=== PATIENT | male | born 1950 | race Caucasian/White ===

== ENCOUNTER 2018-01-21 12:05 | Inpatient (IN) ==
--- NOTE | 2018-01-21 12:22 | ED ---
HPI General Chief Complaint: Chest Pain Stated Complaint: Medical Time Seen by Provider: 01/21/18 12:11 Source: patient and EMS Mode of arrival: EMS Limitations: no limitations History of Present Illness HPI narrative: 67-year-old male patient visiting from [place], has history of hypertension, high cholesterol, CAD with stents, presents to the ER today because of epigastric and substernal chest discomfort which she rates currently at a 5 out of 10, have improved after given nitroglycerin by EMS. He denies any shortness of breath, nausea, or any other symptoms. He does not know of any exacerbating alleviating factors. Complete Quality Measures for STEMI Alert Patients Related Data Home Medications Medication Instructions Recorded Confirmed amlodipine 10 mg PO DAILY 01/21/18 01/21/18 aspirin [Aspir-81] 81 mg PO DAILY 01/21/18 01/21/18 metoprolol tartrate 50 mg PO BID 01/21/18 01/21/18 simvastatin 10 mg PO QPM 01/21/18 01/21/18 Allergies Allergy/AdvReac Type Severity Reaction Status Date / Time No Known Allergies Allergy Verified 01/21/18 12:15 Review of Systems Except as stated in HPI: all other systems reviewed are negative PMFSH History History Provided By: Patient Medical History Medical History AV (arteriovenous fistula) (Acute) Diabetes (Acute) Hyperlipidemia (Acute) Hypertension (Acute) Surgical History Surgical History History of appendectomy (Acute) History of nephrectomy (Acute) Hx of cholecystectomy (Acute) Social History Social History Substance History: No History of Abuse Second Hand Smoke Exposure: No Smoking Status: Never smoker How Often Do You Have a Drink Containing Alcohol: Never Recent Travel in [facility] within the Last 8 Weeks: Yes Recent Out of Country Travel within the Last 8 Weeks: No Exam Narrative Exam Narrative: GENERAL: Well-developed middle-age male patient currently in mild distress. Awake and oriented 3. SKIN: Focused skin assessment warm/dry. HEAD: Atraumatic. Normocephalic. EYES: Pupils equal and round. No scleral icterus. No injection or drainage. ENT: No nasal bleeding or discharge. Mucous membranes pink and moist. NECK: Trachea midline. No JVD. CARDIOVASCULAR: Regular rate and rhythm. No murmur appreciated. RESPIRATORY: No accessory muscle use. Clear to auscultation. Breath sounds equal bilaterally. GASTROINTESTINAL: Abdomen soft, mild epigastric tenderness without guarding or rebound, nondistended. Hepatic and splenic margins not palpable. MUSCULOSKELETAL: No obvious deformities. No clubbing. No cyanosis. No edema. NEUROLOGICAL: Awake and alert. No obvious cranial nerve deficits. Motor grossly within normal limits. Normal speech. PSYCHIATRIC: Appropriate mood and affect; insight and judgment normal. Course Hospital Course: EKG did not show any signs of acute ST elevations. He does have T-wave inversion in V6. No acute ST depressions as far as I can tell, no previous records to compare with. Lab work shows elevated BUN and creatinine, it is unclear where the patient's baseline is. His troponin is mildly elevated at 0.5. At this point, patient is put on heparin protocol my plan would be to admit the patient for further evaluation and treatment for possible [place]. CT of the abdomen and pelvis did not show any signs of acute intra-abdominal process other can be done only without contrast because of elevated creatinine. Case was discussed with Dr. King for admission. Initial Documented Vital Signs Temperature 98 F 01/21/18 12:06 Pulse Rate 59 L 01/21/18 12:06 Respiratory Rate 16 01/21/18 12:06 Blood Pressure 147/67 H 01/21/18 12:06 Pulse Oximetry 100 01/21/18 12:06 Last Documented Vital Signs Temperature 97.8 F 01/21/18 13:14 Pulse Rate 68 01/21/18 13:14 Respiratory Rate 17 01/21/18 13:14 Blood Pressure 139/64 01/21/18 13:14 Pulse Oximetry 99 01/21/18 13:14 Medical Decision Making Differential Diagnosis Differential Diagnosis: ACS versus gastritis versus pancreatitis versus gastroenteritis Lab Data Result diagrams: 01/21/18 12:20 01/21/18 12:20 Lab Results 01/21/18 01/21/18 01/21/18 Range/Units 12:20 12:20 12:20 WBC 10.7 (4.0-11.0) th/mm3 RBC 4.05 L (4.50-5.90) mil/mm3 Hgb 10.2 L (13.0-17.0) gm/dL Hct 32.0 L (39.0-51.0) % MCV 78.9 L (80.0-100.0) fL MCH 25.3 L (27.0-34.0) pg MCHC 32.0 (32.0-36.0) % RDW 16.3 (11.6-17.2) % Plt Count 372 (150-450) th/mm3 MPV 8.3 (7.0-11.0) fL Neut % (Auto) 69.7 (16.0-70.0) % Lymph % (Auto) 19.4 (9.0-44.0) % [place] % (Auto) 6.3 (0.0-8.0) % Eos % (Auto) 3.6 (0.0-4.0) % Baso % (Auto) 1.0 (0.0-2.0) % Neut # (Auto) 7.4 (1.8-7.7) th/mm3 Lymph # (Auto) 2.1 (1.0-4.8) th/mm3 [place] # (Auto) 0.7 (0.0-0.9) th/mm3 Eos # (Auto) 0.4 (0.0-0.4) th/mm3 Baso # (Auto) 0.1 (0.0-0.2) th/mm3 WBC Differential . Differential Comment Auto diff final PT 11.2 (9.8-11.6) sec INR 1.1 Ratio APTT 25.4 (24.3-30.1) sec Sodium 139 (136-145) meq/L Potassium 4.4 (3.5-5.1) meq/L Chloride 111 H (98-107) meq/L Carbon Dioxide 21.7 (21.0-32.0) meq/L Anion Gap 6 (5-15) meq/L BUN 30 H (7-18) mg/dL Creatinine 2.87 H (0.60-1.30) mg/dL Estimated GFR 22 L (>89) mL/min Random Glucose 146 H (74-106) mg/dL Calcium 8.1 L (8.5-10.1) mg/dL Total Bilirubin 0.8 (0.2-1.0) mg/dL AST 24 (15-37) U/L ALT 47 (12-78) U/L Alkaline Phosphatase 102 (45-117) U/L Troponin I 0.32 H (0.02-0.05) ng/mL Total Protein 7.4 (6.4-8.2) g/dL Albumin 3.4 (3.4-5.0) g/dL Lipase 408 H (73-393) U/L Imaging Data Radiologist's impression: Chest X-Ray 01/21/18 12:19 CONCLUSION: Cardiomegaly with no acute cardiopulmonary disease. Abdomen/Pelvis CT 01/21/18 13:32 CONCLUSION: 1. Study is breathing motion degraded. 2. Tiny bilateral pleural effusions. 3. Cardiomegaly. 4. No acute abnormality to explain the patient's pain. 5. Nonobstructing right renal calculi. Discharge Plan Discharge Disposition Patient Disposition: 30 Still Patient Discharge Condition Condition: Stable Discharge Details Anticipated Discharge Date: 01/21/18 Diagnosis: Non-ST elevation (NSTEMI) myocardial infarction Physicians Team ED Provider: Devang Trejo Primary Care Provider: UNKNOWN, Rxs /Orders / Referrals /Forms Prescriptions: No Action simvastatin 10 mg Tablet 10 mg PO QPM RF: 0 aspirin [Aspir-81] 81 mg Tablet,Delayed Release (Dr/Ec) 81 mg PO DAILY RF: 0 amlodipine 10 mg Tablet 10 mg PO DAILY RF: 0 metoprolol tartrate 50 mg Tablet 50 mg PO BID RF: 0 Discharge Instructions Patient Printed Instructions: Chest Pain (ED) Discharge Interventions Interventions: Vital Signs Last Done: 01/21/18 13:14 Status ED Status: With Doctor
--- NOTE | 2018-01-21 12:44 | XR ---
EXAM DATE: 01/21/2018 12:35 PM EDT AGE/SEX: 67 years / Male INDICATIONS: Midline chest pain. CLINICAL DATA: This is the patient's initial encounter. Patient reports that signs and symptoms have been present for 2 days and indicates a pain score of 5/10. MEDICAL/SURGICAL HISTORY: None. None. COMPARISON: No prior exams available for comparison. FINDINGS: A single AP view of the chest demonstrates the lungs to be symmetrically aerated without evidence of mass, infiltrate or effusion. The heart size is enlarged with no definite pulmonary edema. Osseous s tructures are intact. CONCLUSION: Cardiomegaly with no acute cardiopulmonary disease. Electronically signed by: Srinath Sidhu MD 01/21/2018 12:43 PM EDT
[2018-01-21 12:58] LABS: Baso # (Auto) 0.1 th/mm3 (0.0-0.2); Eos # (Auto) 0.4 th/mm3 (0.0-0.4); Eos % (Auto) 3.6 % (0.0-4.0); Hemoglobin 10.2 gm/dL (13.0-17.0); Lymph # (Auto) 2.1 th/mm3 (1.0-4.8); Lymph % (Auto) 19.4 % (9.0-44.0); Mean Corpuscular Hemoglobin 25.3 pg (27.0-34.0); Mean Corpuscular Volume 78.9 fL (80.0-100.0); Mean Platelet Volume 8.3 fL (7.0-11.0); Mono # (Auto) 0.7 th/mm3 (0.0-0.9); Mono % (Auto) 6.3 % (0.0-8.0); Neut # (Auto) 7.4 th/mm3 (1.8-7.7); Neut % (Auto) 69.7 % (16.0-70.0); Platelet Count 372 th/mm3 (150-450); Red Blood Count 4.05 mil/mm3 (4.50-5.90); Red Cell Distribution Width 16.3 % (11.6-17.2); White Blood Count 10.7 th/mm3 (4.0-11.0)
[2018-01-21 13:10] LABS: Activated Partial Thrombo Time 25.4 sec (24.3-30.1); INR 1.1 Ratio; Prothrombin Time 11.2 sec (9.8-11.6)
[2018-01-21 13:23] LABS: Alanine Aminotransferase 47 U/L (12-78); Albumin 3.4 g/dL (3.4-5.0); Anion Gap 6 meq/L (5-15); Aspartate Aminotransferase 24 U/L (15-37); Blood Urea Nitrogen 30 mg/dL (7-18); Calcium 8.1 mg/dL (8.5-10.1); Carbon Dioxide 21.7 meq/L (21.0-32.0); Chloride 111 meq/L (98-107); Glomerular Filtration Rate 22 mL/min (>89); Glucose,Random 146 mg/dL (74-106); Lipase 408 U/L (73-393); Potassium 4.4 meq/L (3.5-5.1); Sodium 139 meq/L (136-145)
[2018-01-21 13:27] LABS: Alkaline Phosphatase 102 U/L (45-117); Total Protein 7.4 g/dL (6.4-8.2); Troponin I 0.32 ng/mL (0.02-0.05)
[2018-01-21] MEDS ORDERED: Heparin Drip 25,000 UNIT/250 ML BAG IV.CONT PRN (13:33)
[2018-01-21] MEDS ORDERED: Heparin 10,000 UNITS/10 ML Vial (for IV use) IV.PUSH STA (13:33)
--- NOTE | 2018-01-21 14:14 | CT ---
EXAM DATE: 01/21/2018 1:49 PM EDT AGE/SEX: 67 years / Male INDICATIONS: Epigastric Abdominal Pain 2 days CLINICAL DATA: This is the patient's initial encounter. Patient reports that signs and symptoms have been present for 2 days and indicates a pain score of 5/10. MEDICAL/SURGICAL HISTORY: Hypertension. Diabetes. Appendectomy. Cholecystectomy. Nephrectomy , right. RADIATION DOSE: 8.15 CTDI (mGy) COMPARISON: No prior exams available for comparison. TECHNIQUE: Multiple contiguous axial images were obtained through the abdomen. Images were obtained using multiple row detector helical technique. Using automated exposure control and adjustment of the mA and/or kV according to patient size, radiation dose was kept as low as reasonably achievable to o btain optimal diagnostic quality images. DICOM format image data is available electronically for rev iew and comparison. FINDINGS: The study is degraded by breathing motion artifact. Lower Lungs: Tiny bilateral pleural effusions. Cardiomegaly with coronary artery atherosclerotic calc ifications.. Liver: The liver has a homogeneous density without space-occupying lesion. There is no dilation of th e biliary tree. The gallbladder is not distended. Spleen: Homogeneous density without enlargement. Pancreas: Unremarkable without mass or calcification. Kidneys: The kidneys are small and lobulated in contour. Right-sided renal calculi are observed with out hydronephrosis. The largest stone measures 9 mm. No stones on the left.. Adrenal Glands: Unremarkable. Aorta: The aorta and proximal iliac vessels are grossly unremarkable without aneurysmal dilation. Bowel/Mesentery: The bowel loops are grossly unremarkable. The cecum and sigmoid colon have a normal configuration. Abdominal Wall: Intact. Retroperitoneum: No evidence of adenopathy in the retrocrural, para-aortic, or deep pelvic regions. Bladder: Contours are smooth. Reproductive Organs: Significant calcifications involving the prostate gland. No enlargement of the gland observed.. Inguinal: The inguinal region is unremarkable without evidence of adenopathy. Bony Structures: Unremarkable. CONCLUSION: 1. Study is breathing motion degraded. 2. Tiny bilateral pleural effusions. 3. Cardiomegaly. 4. No acute abnormality to explain the patient's pain. 5. Nonobstructing right renal calculi. Electronically signed by: Sanjay Alcazar MD 01/21/2018 2:13 PM EDT
[2018-01-21] MEDS ORDERED: Morphine Sulfate Inj 2 MG/ML Vial IV.PUSH PRN (14:17)
[2018-01-21] MEDS ORDERED: Bisacodyl 10 MG Supp RECTAL PRN (14:23)
[2018-01-21] MEDS: Sod Chloride 0.9% Inj 1,000 ML IV.CONT SCH (14:51)
[2018-01-21] MEDS ORDERED: Dextrose 50% in Water 50 ML Vial IV.PUSH PRN (15:30)
[2018-01-21] MEDS ORDERED: Benzonatate 100 MG Capsule PO PRN (15:40)
--- NOTE | 2018-01-21 15:46 | P.HP ---
History of Present Illness Primary Care Physician: UNKNOWN History of Present Illness: This is a 67-year-old male with a history of hypertension, hyperlipidemia, diabetes mellitus and coronary artery disease status post stent 2 years ago. He presents to the emergency department complaining of epigastric pressure discomfort which started 4 days ago. It is an intermittent exertional pain without radiation and not associated with shortness of breath, nausea, palpitations and dizziness. It is relieved with sublingual nitroglycerin but got worse last night prompting ER evaluation. EKG reportedly unremarkable per ER physician (unable to review). Troponin 0.3 and was started on heparin drip. Took aspirin today. Lipase is also slightly elevated at [address] of the abdomen pelvis reveals no acute findings to explain abdominal pain. Patient does report of sensation of food getting stuck in his chest but denies pain after eating. Does not recall having EGD. He also has history of chronic kidney disease stage IV was on dialysis 2 years ago. He is nonoliguric. All other systems reviewed negative Inpatient Certification: I certify that the inpatient services were ordered in accordance with Medicare regulations governing the order. This includes certification that hospital inpatient services are reasonable and necessary and in the case of services not specified as inpatient-only under 42 CFR 419.22(n), that they are appropriately provided as inpatient services in accordance to with the 2-midnight benchmark under 43 CFR 412.3(e) Estimated Total Length of Stay (Days): 2 Plans for Post Hospital Care: Not yet determined PMFSH - History History Provided By: Patient, Family Member - Medical History Medical History: Medical History (Last Reviewed 01/21/18 @ 12:22 by Devang Trejo MD) AV (arteriovenous fistula) Diabetes Hyperlipidemia Hypertension - Surgical History Surgical History: Surgical History (Last Reviewed 01/21/18 @ 12:22 by Devang Trejo MD) History of appendectomy History of nephrectomy Hx of cholecystectomy - Family History Family History: Family History (Last Updated 01/21/18 @ 15:44 by Benjamin King MD) Other Family history non-contributory - Tobacco History Second Hand Smoke Exposure: No Smoking Status: Never smoker - Alcohol History How Often Do You Have a Drink Containing Alcohol: Never - Substance Use History Substance History: No History of Abuse - Travel History Recent Travel in the [place] Within the Last 8 Weeks: No Recent Travel Out of the Country Within the Last 8 Weeks: No - Immunization History Tetanus Immunization: Never Vaccinated Hx Influenza Vaccine This Season: Yes Medications and Allergies Active Medications: Active Medications Amlodipine Besylate (Norvasc) 10 mg PO DAILY [facility] Aspirin (Ecotrin) 325 mg PO DAILY [facility] Bisacodyl (Dulcolax Supp) 10 mg RECTAL DAILY PRN PRN Reason: SEVERE CONSITIPATION Dextrose (D50w Vial) 50 ml IV.PUSH UNSCH PRN PRN Reason: PER HYPOGLYCEMIA PROTOCOL Glucagon (Glucagon Inj) 1 mg OTHER PRN PRN PRN Reason: for Hypoglycemia Protocol Heparin Sodium/Dextrose (Heparin/D5w 25,000 U/250 Ml) 25,000 unit in 250 mls @ 0 mls/hr IV.CONT TITRATE PRN; Protocol PRN Reason: Per Protocol Last Admin: 01/21/18 13:56 Dose: 1,000 units/hr, 10 mls/hr Sodium Chloride (Ns Inj) 1,000 mls @ 80 mls/hr IV.CONT .[id number] [facility] Last Admin: 01/21/18 14:51 Dose: 80 mls/hr Insulin Aspart (Novolog Insulin [place] Sugar Inj) 0 unit SQ ACHS ILYA; Protocol Lactulose (Lactulose Liq) 30 ml PO DAILY PRN PRN Reason: SEVERE CONSITIPATION Metoprolol Tartrate (Lopressor) 50 mg PO BID [facility] Morphine Sulfate (Morphine Inj) 2 mg IV.PUSH Q30M PRN PRN Reason: CHEST PAIN Nitroglycerin (Nitrostat Sl) 0.4 mg SL Q5M PRN PRN Reason: CHEST PAIN Nitroglycerin (Nitro-Bid 2% Oint) 0.5 inch TOPICAL Q8HR [facility] Ondansetron HCl (Zofran Inj) 4 mg IV.PUSH Q6H PRN PRN Reason: NAUSEA OR VOMITING Pantoprazole Sodium (Protonix) 40 mg PO DAILY [facility] Pravastatin Sodium (Pravachol) 20 mg PO DAILY [facility] Senna/Docusate Sodium (Shaina-Colace) 1 tab PO BID [facility] Sennosides (Senokot) 17.2 mg PO Q12H PRN PRN Reason: Moderate Constipation Sodium Chloride (Ns Inj) 2 ml IV.FLUSH BID [facility] Sodium Chloride (Ns Inj) 2 ml IV.FLUSH UNSCH PRN PRN Reason: FLUSH AFTER USING IV ACCESS Allergies Allergy/AdvReac Type Severity Reaction Status Date / Time No Known Allergies Allergy Verified 01/21/18 12:15 Home Medications Medication Instructions Recorded Confirmed Type amlodipine 10 mg PO DAILY 01/21/18 01/21/18 History aspirin [Aspir-81] 81 mg PO DAILY 01/21/18 01/21/18 History metoprolol tartrate 50 mg PO BID 01/21/18 01/21/18 History simvastatin 10 mg PO QPM 01/21/18 01/21/18 History Exam Vital signs: Vital Signs 01/21/18 12:06 01/21/18 12:14 01/21/18 12:19 Temperature 98 F Pulse Rate 59 L 60 61 Respiratory Rate 16 16 Blood Pressure 147/67 H 139/62 Pulse Oximetry 100 100 100 01/21/18 13:14 01/21/18 14:24 01/21/18 14:50 Temperature 97.8 F 97.8 F Pulse Rate 68 64 Respiratory Rate 17 16 Blood Pressure 139/64 130/77 Pulse Oximetry 99 99 Intake & Output 01/20/18 01/21/18 01/21/18 18:59 06:59 18:59 Weight 81.647 kg Other: Weight On Admission 81.647 kg Narrative: GENERAL: Well-developed and well-nourished in mild distress secondary to pain SKIN: Warm and dry. HEAD: Atraumatic. Normocephalic. EYES: Pupils equal and round. No scleral icterus. No injection or drainage. ENT: No nasal bleeding or discharge. Mucous membranes pink and moist. NECK: Trachea midline. No JVD. CARDIOVASCULAR: Regular rate and rhythm. RESPIRATORY: No accessory muscle use. Clear to auscultation. Breath sounds equal bilaterally. GASTROINTESTINAL: Abdomen soft, slightly tender epigastric area, nondistended. MUSCULOSKELETAL: Extremities without clubbing, cyanosis, or edema. No obvious deformities. AV fistula left upper extremity with thrill NEUROLOGICAL: Awake and alert. No obvious cranial nerve deficits. Motor grossly within normal limits. Five out of 5 muscle strength in the arms and legs. Normal speech. PSYCHIATRIC: Appropriate mood and affect; insight and judgment normal. Results - Labs CBC & Chem 7: 01/21/18 12:20 01/21/18 12:20 Labs: Laboratory Results - last 24 hr 01/21/18 01/21/18 01/21/18 12:20 12:20 12:20 WBC 10.7 RBC 4.05 L Hgb 10.2 L Hct 32.0 L MCV 78.9 L MCH 25.3 L MCHC 32.0 RDW 16.3 Plt Count 372 MPV 8.3 Neut % (Auto) 69.7 Lymph % (Auto) 19.4 [place] % (Auto) 6.3 Eos % (Auto) 3.6 Baso % (Auto) 1.0 Neut # (Auto) 7.4 Lymph # (Auto) 2.1 [place] # (Auto) 0.7 Eos # (Auto) 0.4 Baso # (Auto) 0.1 WBC Differential . Differential Comment Auto diff final PT 11.2 INR 1.1 APTT 25.4 Sodium 139 Potassium 4.4 Chloride 111 H Carbon Dioxide 21.7 Anion Gap 6 BUN 30 H Creatinine 2.87 H Estimated GFR 22 L Random Glucose 146 H Calcium 8.1 L Total Bilirubin 0.8 AST 24 ALT 47 Alkaline Phosphatase 102 Troponin I 0.32 H Total Protein 7.4 Albumin 3.4 Lipase 408 H - Imaging Impressions Chest X-Ray 01/21/18 12:19 CONCLUSION: Cardiomegaly with no acute cardiopulmonary disease. Abdomen/Pelvis CT 01/21/18 13:32 CONCLUSION: 1. Study is breathing motion degraded. 2. Tiny bilateral pleural effusions. 3. Cardiomegaly. 4. No acute abnormality to explain the patient's pain. 5. Nonobstructing right renal calculi. Caprini VTE Risk Assessment Caprini VTE Risk Assessment: Moderate/High Risk (score >= 2) Caprini Risk Assessment Model: Point Value = 1 Point Value = 2 Point Value = 3 Point Value = 5 Age 41-60 Minor surgery BMI > 25 kg/m2 Swollen legs Varicose veins or History of unexplained or recurrent spontaneous Oral contraceptives or hormone replacement Sepsis (< 1 month) Serious lung disease, including pneumonia (< 1 month) Abnormal pulmonary function Acute myocardial infarction Congestive heart failure (< 1 month) History of inflammatory bowel disease Medical patient at bed rest Age 61-74 Arthroscopic surgery Major open surgery (> 45 min) Laparoscopic surgery (> 45 min) Malignancy Confined to bed (> 72 hours) Immobilizing plaster cast Central venous access Age >= 75 History of VTE Family history of VTE Factor V Leiden Prothrombin [id number] Lupus anticoagulant Anticardiolipin antibodies Elevated serum homocysteine Heparin-induced thrombocytopenia Other congenital or acquired thrombophilia Stroke (< 1 month) Elective arthroplasty Hip, pelvis, or leg fracture Acute spinal cord injury (< 1 month) Prophylaxis Regimen: Total Risk Factor Score Risk Level Prophylaxis Regimen 0-1 Low Early ambulation 2 Moderate Order ONE of the following: *Sequential Compression Device (SCD) *Heparin 5000 units SQ BID 3-4 Higher Order ONE of the following medications: *Heparin 5000 units SQ TID *Enoxaparin/Lovenox 40 mg SQ daily (WT < 150 kg, CrCl > 30 mL/min) *Enoxaparin/Lovenox 30 mg SQ daily (WT < 150 kg, CrCl > 10-29 mL/min) *Enoxaparin/Lovenox 30 mg SQ BID (WT < 150 kg, CrCl > 30 mL/min) AND/OR *Sequential Compression Device (SCD) 5 or more Highest Order ONE of the following medications: *Heparin 5000 units SQ TID (Preferred with Epidurals) *Enoxaparin/Lovenox 40 mg SQ daily (WT < 150 kg, CrCl > 30 mL/min) *Enoxaparin/Lovenox 30 mg SQ daily (WT < 150 kg, CrCl > 10-29 mL/min) *Enoxaparin/Lovenox 30 mg SQ BID (WT < 150 kg, CrCl > 30 mL/min) AND *Sequential Compression Device (SCD) Assessment and Plan - Plan This is a 67-year-old male who presents with epigastric discomfort, elevated troponin and abnormal EKG. ACS with history of coronary artery disease status post stent. Stat EKG interpreted by me shows sinus rhythm, mild ST elevation V3 to V5 with Q waves. Patient will be kept n.p.o. continue heparin drip and trend cardiac enzymes. Continue aspirin, Lopressor and statin. Start Nitropaste. Dw cardiology. Transfer patient to see IC. Mildly elevated lipase. Denies alcohol use. CT of the abdomen reveals no acute findings to explain abdominal pain. He reports sensation of food getting stuck in his chest. Start PPI and as needed Tums. Will consider consultation with GI after cardiac evaluation. Chronic kidney disease stage IV was on dialysis 2 years ago. He is nonoliguric. Continue gentle IV hydration. Avoid nephrotoxins. Patient aware he might need to be back on dialysis if he undergoes cardiac catheterization. Consultation with nephrology will be placed. Multiple medical conditions of hypertension, hyperlipidemia and diabetes mellitus. Continue outpatient medications as appropriate. Monitor fingersticks with sliding scale coverage. DVT prophylaxis patient on heparin drip Discharge Planning: per cardiology
--- NOTE | 2018-01-21 16:51 | MB ---
cc: John Young MD DATE: 01/21/2018 REASON FOR CONSULTATION: Abnormal troponin level. HISTORY OF PRESENT ILLNESS: The patient is a 67-year-old Bah[place]ian male with a history of hypertension, diabetes, hyperlipidemia, severe chronic renal insufficiency, at one point on dialysis about 2 years ago, coronary artery disease, status post coronary stent procedure and myocardial infarction in [place] in 2015, who presented to the emergency department, mainly with complaints of epigastric pain. Since yesterday evening, he has had waxing and waning epigastric discomfort described as "pressure" associated with shortness of breath and occasional rapid palpitations. He denies nausea, vomiting, diarrhea, melena, or bright red blood per rectum. He also denies chest pain, dizziness, syncope, or near syncope. Rarely, he experiences minimal right-sided pedal edema. PAST MEDICAL HISTORY: 1. Diabetes. 2. Hypertension. 3. Hyperlipidemia. 4. Coronary artery disease, status post myocardial infarction and coronary stenting 2016 in [place]. 5. Severe chronic renal insufficiency. About 2 years ago, he was transiently on hemodialysis and does have a left arm AV fistula. PAST SURGICAL HISTORY: 1. Appendectomy. 2. AV fistula formation, left arm. 3. Cholecystectomy. CARDIAC MEDICATIONS AT HOME: 1. Metoprolol tartrate 50 mg b.i.d. 2. Aspirin 81 mg daily. 3. Amlodipine 10 mg daily. 4. Simvastatin 10 mg at bedtime. ALLERGIES: NO KNOWN DRUG ALLERGIES. FAMILY HISTORY: Noncontributory. SOCIAL HISTORY: The patient denies any history of alcohol or tobacco abuse. REVIEW OF SYSTEMS: As in the history of present illness, otherwise negative or noncontributory. He also denies headache, melena, dyspepsia, or fevers. PHYSICAL EXAMINATION: VITAL SIGNS: Blood pressure 130/77 with a pulse of 64, respirations 16. GENERAL: He is a well-developed, well-nourished [place] male in no acute distress. NECK: Jugular venous pressure is hard to assess. Carotid pulses are 2+ bilaterally and without bruits. CHEST: Reveals unlabored respiratory effort with clear lungs braden. CARDIAC: He has a regular rhythm and rate without S3, S4, or murmur. ABDOMEN: He has a soft abdomen with mild epigastric tenderness, without rebound or guarding. Bowel sounds are present. There is no definite hepatosplenomegaly. EXTREMITIES: Reveals no clubbing, cyanosis or edema. DIAGNOSTIC STUDIES: EKG shows sinus rhythm, anterior infarct age undetermined, probably old, nonspecific ST/T abnormality. Chest x-ray shows no acute disease. LABORATORY DATA: Includes WBC 10.7, hemoglobin 10.2, platelets 36, platelets 372. Potassium 4.4, BUN 30, creatinine 2.87, glucose 146, AST 24, ALT 47. Troponin is 0.32. Lipase 408. IMPRESSION: Overall atypical symptoms for myocardial ischemia or infarction in this 67-year-old [place]ian male with a history of hypertension, diabetes, hyperlipidemia, coronary artery disease, chronic renal insufficiency. EKG shows no definite acute ST segment or T-wave changes. He does have Q-waves in the anterior leads, suggesting old infarct. He clearly has epigastric tenderness on exam, reproducing his discomfort. The troponin level is only slightly abnormal, this in the setting of severe renal insufficiency. The patient also notes a history of left upper chest pain at the time of his myocardial infarction and coronary stenting. He denies any recent similar symptoms. At this point, there is no evidence for congestive heart failure. RECOMMENDATIONS: 1. Await subsequent troponin levels; unless there is a marked increase in the levels, would recommend nuclear stress testing to assess for myocardial ischemia. 2. Agree with heparin drip, aspirin, beta ignacio, and nitrates. 3. Await his 2D echo. MD MANUEL Rendon/RANDALL , 04:31 PM , 04:40 PM JULIUS
[2018-01-21] MEDS: Insulin NovoLOG Aspart Correctional Sugar Inj SQ SCH ×2 (18:02→21:16)
[2018-01-21 18:46] LABS: Bacteria,Urine Many /hpf; Bilirubin,Urine Negative (Negative); Clarity,Urine Cloudy (Clear); Color,Urine Yellow (Yellw/Straw); Glucose,Urine (UA) Negative (Negative); Leukocyte Esterase,Urine Large (Negative); Nitrite,Urine Negative (Negative); Specific Gravity,Urine 1.013 (1.002-1.035)
--- NOTE | 2018-01-21 18:49 | P.CONNP ---
<Natty Infante - Last Filed: 01/21/18 18:17> History of Present Illness Service: Nephrology Consult date: 01/21/18 Reason for Consult: CKD may need [facility] Primary Care Provider: UNKNOWN History of Present Illness: This is a very pleasant 67 y/o male patient who was admitted for epigastric pain/chest pain and placed on a heparin gtt. His creatinine is 2.87, GFR 22. His son is present, able to translate, and reports his GFR was 24-27 two months ago. The patient is from [place], had a medical insurance clerk that he followed regularly with. PMH consists of HTN and DM II, in addition to CAD with stents. He also has had several renal stones over the years. He denies use of NSAIDS, and is not in distress on exam. He is on oxygen, has ascattered rles present, is a full shawn. Of note he has functioning AVF left arm that was placed several months ago. Review of Systems Cardiovascular: Reports chest pain, Reports shortness of breath with activity, Denies chest pain with activity Gastrointestinal: Reports abdominal pain Neurologic: Denies dizziness, Denies tingling/numbness/burning sensations PMFSH - History History Provided By: Patient, Family Member - Medical History Medical History: Medical History (Last Reviewed 01/21/18 @ 12:22 by Devang Trejo MD) AV (arteriovenous fistula) Diabetes Hyperlipidemia Hypertension - Surgical History Surgical History: Surgical History (Last Reviewed 01/21/18 @ 12:22 by Devang Trejo MD) History of appendectomy History of nephrectomy Hx of cholecystectomy - Family History Family History: Family History (Last Updated 01/21/18 @ 15:44 by Benjamin King MD) Other Family history non-contributory - Tobacco History Second Hand Smoke Exposure: No Smoking Status: Never smoker - Alcohol History How Often Do You Have a Drink Containing Alcohol: Never - Substance Use History Substance History: No History of Abuse - Travel History Recent Travel in the [place] Within the Last 8 Weeks: No Recent Travel Out of the Country Within the Last 8 Weeks: No - Immunization History Tetanus Immunization: Never Vaccinated Hx Influenza Vaccine This Season: Yes Medications and Allergies Allergies Allergy/AdvReac Type Severity Reaction Status Date / Time No Known Allergies Allergy Verified 01/21/18 12:15 Home Medications Medication Instructions Recorded Confirmed Type amlodipine 10 mg PO DAILY 01/21/18 01/21/18 History aspirin [Aspir-81] 81 mg PO DAILY 01/21/18 01/21/18 History metoprolol tartrate 50 mg PO BID 01/21/18 01/21/18 History simvastatin 10 mg PO QPM 01/21/18 01/21/18 History Active Medications: Active Medications Amlodipine Besylate (Norvasc) 10 mg PO DAILY [facility] Aspirin (Ecotrin) 325 mg PO DAILY [facility] Benzonatate (Tessalon Perles) 200 mg PO Q8H PRN PRN Reason: COUGH Bisacodyl (Dulcolax Supp) 10 mg RECTAL DAILY PRN PRN Reason: SEVERE CONSITIPATION Dextrose (D50w Vial) 50 ml IV.PUSH UNSCH PRN PRN Reason: PER HYPOGLYCEMIA PROTOCOL Glucagon (Glucagon Inj) 1 mg OTHER PRN PRN PRN Reason: for Hypoglycemia Protocol Guaifenesin (Mucinex Er) 600 mg PO BID [facility] Heparin Sodium/Dextrose (Heparin/D5w 25,000 U/250 Ml) 25,000 unit in 250 mls @ 0 mls/hr IV.CONT TITRATE PRN; Protocol PRN Reason: Per Protocol Last Admin: 01/21/18 13:56 Dose: 1,000 units/hr, 10 mls/hr Sodium Chloride (Ns Inj) 1,000 mls @ 80 mls/hr IV.CONT .[id number] [facility] Last Admin: 01/21/18 14:51 Dose: 80 mls/hr Insulin Aspart (Novolog Insulin Correctional Sugar Inj) 0 unit SQ ACHS [facility]; Protocol Last Admin: 01/21/18 18:02 Dose: Not Given Lactulose (Lactulose Liq) 30 ml PO DAILY PRN PRN Reason: SEVERE CONSITIPATION Metoprolol Tartrate (Lopressor) 50 mg PO BID [facility] Morphine Sulfate (Morphine Inj) 2 mg IV.PUSH Q30M PRN PRN Reason: CHEST PAIN Nitroglycerin (Nitrostat Sl) 0.4 mg SL Q5M PRN PRN Reason: CHEST PAIN Nitroglycerin (Nitro-Bid 2% Oint) 0.5 inch TOPICAL Q8HR [facility] Ondansetron HCl (Zofran Inj) 4 mg IV.PUSH Q6H PRN PRN Reason: NAUSEA OR VOMITING Pantoprazole Sodium (Protonix) 40 mg PO DAILY [facility] Pravastatin Sodium (Pravachol) 20 mg PO DAILY [facility] Senna/Docusate Sodium (Shaina-Colace) 1 tab PO BID [facility] Sennosides (Senokot) 17.2 mg PO Q12H PRN PRN Reason: Moderate Constipation Sodium Chloride (Ns Inj) 2 ml IV.FLUSH BID ILYA Sodium Chloride (Ns Inj) 2 ml IV.FLUSH UNSCH PRN PRN Reason: FLUSH AFTER USING IV ACCESS Exam Vital signs: Vital Signs 01/21/18 12:06 01/21/18 12:14 01/21/18 12:19 Temperature 98 F Pulse Rate 59 L 60 61 Respiratory Rate 16 16 Blood Pressure 147/67 H 139/62 Pulse Oximetry 100 100 100 01/21/18 13:14 01/21/18 14:24 01/21/18 14:50 Temperature 97.8 F 97.8 F Pulse Rate 68 64 Respiratory Rate 17 16 Blood Pressure 139/64 130/77 Pulse Oximetry 99 99 01/21/18 16:00 01/21/18 18:00 Temperature 97.6 F Pulse Rate 62 62 Respiratory Rate 20 Blood Pressure 141/73 H Pulse Oximetry 100 Intake & Output 01/20/18 01/21/18 01/21/18 18:59 06:59 18:59 Weight 81.647 kg Other: Date of Last Bowel Movement 01/20/18 Weight On Admission 81.647 kg - Constitutional no acute distress, average body habitus - Routine HEENT Exam Head: Present: normocephalic - Routine Neck Exam Present: supple, full ROM - Routine Respiratory Exam Present: rales. Absent: accessory muscle use - Routine Cardiovascular Exam Present: RRR, S1, S2 - Routine Abdominal Exam Present: soft, normoactive bowel sounds - Routine Extremities Exam Present: full ROM, normal capillary refill, AV fistula. Absent: edema - Routine Skin Exam Present: intact, dry, warm - Routine Neurological Exam Present: alert, oriented X3, CN II-XII intact Results - Lab Results 01/21/18 12:20 01/21/18 12:20 Most recent lab results Calcium 8.1 mg/dL (8.5-10.1) L 01/21/18 12:20 - Image Kidney/bladder ultrasound: other (CT reviewed) Assessment and Plan - Assessment (1) CKD (chronic kidney disease), stage IV Code(s): N18.4 - Chronic kidney disease, stage 4 (severe) Status: Acute Plan: His son reports a baseline CKD 4, GFR of 24-27 UA pending to look for proteinuria. Imaging shows non obstructing renal stones. He has a hx of the same. His renal function is at baseline. Dialysis is not required at this time. Reduce IVF to 30 cc/hr. PO fluids encouraged. Repeat labs Obtain UA Avoid nephrotoxins If discharged we will follow in CKD clinic. (2) Non-ST elevation (NSTEMI) myocardial infarction Code(s): I21.4 - Non-ST elevation (NSTEMI) myocardial infarction Status: Acute Plan: Cardiology has evaluated. Echo pending. ON heparin, statin, and ASA Serial troponin, may need stress test. - Plan He is cleared for discharge from renal perspective. If no intervention is planned, we will follow in CKD clinic. <Ermias Yanes - Last Filed: 01/23/18 08:28> History of Present Illness Primary Care Provider: UNKNOWN [facility] - Medical History Medical History: Medical History (Last Reviewed 01/21/18 @ 12:22 by Devang Trejo MD) AV (arteriovenous fistula) Diabetes Hyperlipidemia Hypertension - Surgical History Surgical History: Surgical History (Last Reviewed 01/21/18 @ 12:22 by Devang Trejo MD) History of appendectomy History of nephrectomy Hx of cholecystectomy - Family History Family History: Family History (Last Updated 01/21/18 @ 15:44 by Benjamin King MD) Other Family history non-contributory Medications and Allergies Active Medications: Active Medications Amlodipine Besylate (Norvasc) 10 mg PO DAILY [facility] Last Admin: 01/22/18 08:30 Dose: 10 mg Aspirin (Ecotrin) 325 mg PO DAILY [facility] Last Admin: 01/22/18 08:30 Dose: 325 mg Benzonatate (Tessalon Perles) 200 mg PO Q8H PRN PRN Reason: COUGH Bisacodyl (Dulcolax Supp) 10 mg RECTAL DAILY PRN PRN Reason: SEVERE CONSITIPATION Dextrose (D50w Vial) 50 ml IV.PUSH UNSCH PRN PRN Reason: PER HYPOGLYCEMIA PROTOCOL Glucagon (Glucagon Inj) 1 mg OTHER PRN PRN PRN Reason: for Hypoglycemia Protocol Guaifenesin (Mucinex Er) 600 mg PO BID [facility] Last Admin: 01/22/18 21:23 Dose: 600 mg Heparin Sodium (Porcine) (Heparin Inj) 5,000 units IV.PUSH Q6H PRN PRN Reason: FOR aPTT<25 SECONDS Heparin Sodium (Porcine) (Heparin Inj) 2,500 units IV.PUSH Q6H PRN PRN Reason: APTT 25-39 Last Admin: 01/21/18 21:07 Dose: 2,500 units Sodium Chloride (Ns Inj) 1,000 mls @ 30 mls/hr IV.CONT .Q24H [facility] Last Admin: 01/22/18 15:46 Dose: 30 mls/hr Ceftriaxone Sodium 1,000 mg/ (Sodium Chloride) 100 mls @ 200 mls/hr IV.SIG Q24H [facility] Last Infusion: 01/22/18 18:45 Dose: Infused Insulin Aspart (Novolog Insulin Correctional Sugar Inj) 0 unit SQ ACHS [facility]; Protocol Last Admin: 01/22/18 23:06 Dose: Not Given Isosorbide Mononitrate (Imdur) 60 mg PO DAILY@0700 [facility] Last Admin: 01/23/18 06:32 Dose: 60 mg Lactulose (Lactulose Liq) 30 ml PO DAILY PRN PRN Reason: SEVERE CONSITIPATION Metoprolol Tartrate (Lopressor) 50 mg PO BID [facility] Last Admin: 01/22/18 21:23 Dose: 50 mg Morphine Sulfate (Morphine Inj) 2 mg IV.PUSH Q30M PRN PRN Reason: CHEST PAIN Nitroglycerin (Nitrostat Sl) 0.4 mg SL Q5M PRN PRN Reason: CHEST PAIN Ondansetron HCl (Zofran Inj) 4 mg IV.PUSH Q6H PRN PRN Reason: NAUSEA OR VOMITING Pantoprazole Sodium (Protonix) 40 mg PO DAILY [facility] Last Admin: 01/22/18 08:30 Dose: 40 mg Pravastatin Sodium (Pravachol) 20 mg PO DAILY [facility] Last Admin: 01/22/18 08:30 Dose: 20 mg Senna/Docusate Sodium (Shaina-Colace) 1 tab PO BID [facility] Last Admin: 01/22/18 21:23 Dose: 1 tab Sennosides (Senokot) 17.2 mg PO Q12H PRN PRN Reason: Moderate Constipation Sodium Chloride (Ns Inj) 2 ml IV.FLUSH BID [facility] Last Admin: 01/22/18 23:09 Dose: 2 ml Sodium Chloride (Ns Inj) 2 ml IV.FLUSH UNSCH PRN PRN Reason: FLUSH AFTER USING IV ACCESS Exam Vital signs: Vital Signs 01/22/18 09:00 01/22/18 10:00 01/22/18 11:00 Temperature Pulse Rate 58 L 54 L 56 L Respiratory Rate Blood Pressure Pulse Oximetry 01/22/18 12:00 01/22/18 13:00 01/22/18 14:00 Temperature 98.2 F Pulse Rate 54 L 80 59 L Respiratory Rate 16 Blood Pressure 139/70 Pulse Oximetry 100 01/22/18 15:00 01/22/18 16:00 01/22/18 17:00 Temperature 98.1 F Pulse Rate 59 L 61 59 L Respiratory Rate 16 Blood Pressure 155/75 H Pulse Oximetry 100 01/22/18 17:24 01/22/18 18:00 01/22/18 19:00 Temperature Pulse Rate 61 67 Respiratory Rate Blood Pressure Pulse Oximetry 96 01/22/18 19:01 01/22/18 20:00 01/22/18 21:00 Temperature 97.7 F Pulse Rate 64 64 64 Respiratory Rate 18 Blood Pressure 170/83 H Pulse Oximetry 96 01/22/18 22:00 01/22/18 23:00 01/23/18 00:00 Temperature 98.4 F Pulse Rate 64 60 66 Respiratory Rate 18 Blood Pressure 131/57 L Pulse Oximetry 98 01/23/18 01:00 01/23/18 02:00 01/23/18 03:00 Temperature Pulse Rate 58 L 60 61 Respiratory Rate Blood Pressure Pulse Oximetry 01/23/18 04:00 01/23/18 05:00 01/23/18 06:00 Temperature 98.7 F Pulse Rate 53 L 54 L 56 L Respiratory Rate 16 Blood Pressure 150/82 H Pulse Oximetry 97 Intake & Output 01/22/18 01/23/18 01/23/18 18:59 06:59 18:59 Intake Total 1830 / 1830 Output Total 620 / 620 Balance 1210 / 1210 Weight 88.1 kg Intake: IV 1350 / 1350 Heparin/D5W 25,000 U/250 mL 25, 250 / 250 000 unit In 250 ml @ Per Protocol IV.CONT TITRATE PRN Rx #:[id number] NS Inj 1,000 ML @ 80 mls/hr IV. 1000 / 1000 CONT .[id number] [facility] Rx#:[id number] Rocephin Inj 1,000 MG In NS Inj 100 / 100 100 ML @ 200 mls/hr IV.SIG Q24H [facility] Rx#:[id number] Oral 480 / 480 Output: Urine 620 / 620 Other: Date of Last Bowel Movement 01/20/18 01/22/18 Results - Lab Results 01/23/18 03:35 01/22/18 00:53 Most recent lab results Calcium 8.0 mg/dL (8.5-10.1) L 01/22/18 00:53 Phosphorus 4.5 mg/dL (2.5-4.9) 01/22/18 00:53 Magnesium 2.3 mg/dL (1.5-2.5) 01/22/18 00:53 Assessment and Plan - Assessment (1) CKD (chronic kidney disease), stage IV Code(s): N18.4 - Chronic kidney disease, stage 4 (severe) Status: Acute (2) Non-ST elevation (NSTEMI) myocardial infarction Code(s): I21.4 - Non-ST elevation (NSTEMI) myocardial infarction Status: Acute - Attending Attestation patient was seen and examined. Agree with above assessment and plan. He was seeing a medical insurance clerk in [place]. Has AVF in the left upper extremity. However there is no need for dialysis at this time.
[2018-01-21 19:27] LABS: Activated Partial Thrombo Time 34.7 sec (24.3-30.1); INR 1.1 Ratio; Prothrombin Time 11.1 sec (9.8-11.6)
[2018-01-21 19:39] LABS: Troponin I 0.32 ng/mL (0.02-0.05)
[2018-01-21] MEDS ORDERED: Heparin 10,000 UNITS/10 ML Vial (for IV use) IV.PUSH PRN ×2 (20:30→20:31)
[2018-01-21] MEDS: guaiFENesin 600 MG ER Tablet PO SCH (21:04)
[2018-01-21] MEDS: Senna/Docusate Sodium 8.6/50 MG Tablet PO SCH (21:04)
[2018-01-21] MEDS: Metoprolol Tartrate 50 MG Tablet PO SCH (21:05)
[2018-01-22 01:26] LABS: Alanine Aminotransferase 40 U/L (12-78); Albumin 3.1 g/dL (3.4-5.0); Anion Gap 8 meq/L (5-15); Aspartate Aminotransferase 20 U/L (15-37); Blood Urea Nitrogen 34 mg/dL (7-18); Carbon Dioxide 20.9 meq/L (21.0-32.0); Chloride 112 meq/L (98-107); Glomerular Filtration Rate 22 mL/min (>89); Glucose,Random 81 mg/dL (74-106); Lipase 397 U/L (73-393); Magnesium 2.3 mg/dL (1.5-2.5); Phosphorus 4.5 mg/dL (2.5-4.9); Potassium 4.4 meq/L (3.5-5.1); Sodium 141 meq/L (136-145)
[2018-01-22 01:29] LABS: Alkaline Phosphatase 98 U/L (45-117); Creatine Kinase 116 U/L (39-308); Total Protein 7.2 g/dL (6.4-8.2); Troponin I 0.28 ng/mL (0.02-0.05)
[2018-01-22 05:00] LABS: Baso # (Auto) 0.1 th/mm3 (0.0-0.2); Baso % (Auto) 0.8 % (0.0-2.0); Eos # (Auto) 0.4 th/mm3 (0.0-0.4); Eos % (Auto) 4.1 % (0.0-4.0); Hematocrit 31.4 % (39.0-51.0); Hemoglobin 9.9 gm/dL (13.0-17.0); Lymph # (Auto) 2.5 th/mm3 (1.0-4.8); Lymph % (Auto) 22.6 % (9.0-44.0); Mean Corpuscular HGB Conc 31.7 % (32.0-36.0); Mean Corpuscular Hemoglobin 24.8 pg (27.0-34.0); Mean Corpuscular Volume 78.4 fL (80.0-100.0); Mono # (Auto) 0.7 th/mm3 (0.0-0.9); Mono % (Auto) 6.8 % (0.0-8.0); Neut # (Auto) 7.1 th/mm3 (1.8-7.7); Neut % (Auto) 65.7 % (16.0-70.0); Platelet Count 336 th/mm3 (150-450); Red Cell Distribution Width 16.5 % (11.6-17.2); White Blood Count 10.8 th/mm3 (4.0-11.0)
[2018-01-22] MEDS: Sod Chloride 0.9% Inj 1,000 ML IV.CONT SCH ×2 (07:45→15:46)
[2018-01-22] MEDS: Insulin NovoLOG Aspart Correctional Sugar Inj SQ SCH ×4 (07:55→23:06)
[2018-01-22] MEDS: Senna/Docusate Sodium 8.6/50 MG Tablet PO SCH ×2 (08:30→21:23)
[2018-01-22] MEDS: amLODIPine 10 MG Tablet PO SCH (08:30)
[2018-01-22] MEDS: Metoprolol Tartrate 50 MG Tablet PO SCH ×2 (08:30→21:23)
[2018-01-22] MEDS: guaiFENesin 600 MG ER Tablet PO SCH ×2 (08:30→21:23)
--- NOTE | 2018-01-22 10:01 | P.PNCA ---
Subjective Interval history: Continued, overall mild, epigastric discomfort, worse with swallowing water or medications. No CP, dyspnea, dizziness. Slept well. Physical Exam Vital signs: Vital Signs 01/21/18 12:06 01/21/18 12:14 01/21/18 12:19 Temperature 98 F Pulse Rate 59 L 60 61 Respiratory Rate 16 16 Blood Pressure 147/67 H 139/62 Pulse Oximetry 100 100 100 01/21/18 13:14 01/21/18 14:24 01/21/18 14:50 Temperature 97.8 F 97.8 F Pulse Rate 68 64 Respiratory Rate 17 16 Blood Pressure 139/64 130/77 Pulse Oximetry 99 99 01/21/18 16:00 01/21/18 18:00 01/21/18 19:00 Temperature 97.6 F Pulse Rate 62 62 71 Respiratory Rate 20 Blood Pressure 141/73 H Pulse Oximetry 100 01/21/18 20:00 01/21/18 21:00 01/21/18 22:00 Temperature 97.9 F Pulse Rate 66 66 54 L Respiratory Rate 18 Blood Pressure 162/72 H Pulse Oximetry 93 L 01/21/18 23:00 01/22/18 00:00 01/22/18 01:00 Temperature 97.6 F Pulse Rate 58 L 52 L 58 L Respiratory Rate 20 Blood Pressure 138/65 Pulse Oximetry 96 01/22/18 02:00 01/22/18 03:00 01/22/18 04:00 Temperature 98.1 F Pulse Rate 54 L 59 L 60 Respiratory Rate 20 Blood Pressure 130/65 Pulse Oximetry 98 01/22/18 05:00 01/22/18 06:00 01/22/18 07:00 Temperature Pulse Rate 66 56 L 57 L Respiratory Rate Blood Pressure Pulse Oximetry 01/22/18 08:00 01/22/18 09:00 Temperature 98.1 F Pulse Rate 51 L 58 L Respiratory Rate 16 Blood Pressure 142/76 H Pulse Oximetry 95 Intake & Output 01/21/18 01/22/18 01/22/18 18:59 06:59 18:59 Intake Total 1480 / 1480 1000 / 1000 Balance 1480 / 1480 1000 / 1000 Weight 81.647 kg 87.2 kg Intake: IV 1000 / 1000 1000 / 1000 NS Inj 1,000 ML @ 80 mls/hr IV. 1000 / 1000 1000 / 1000 CONT .[id number] IL[facility] Rx#:[id number] Oral 480 / 480 Other: # Urine Diapers 2 Date of Last Bowel Movement 01/20/18 01/20/18 01/20/18 Weight On Admission 81.647 kg - Constitutional no acute distress - Routine Neck Exam Absent: JVD - Routine Respiratory Exam Present: CTA bilaterally - Routine Cardiovascular Exam Present: RRR, S1, S2. Absent: murmur, gallop - Routine Abdominal Exam Present: soft, normoactive bowel sounds, tenderness. Absent: rebound, guarding , organomegaly Comments: Mild epigastric tenderness. No rebound or guarding. - Routine Extremities Exam Absent: cyanosis, clubbing, edema Assessment and Plan - Assessment (1) Coronary artery disease Code(s): I25.10 - Atherosclerotic heart disease of [place] coronary artery without angina pectoris Status: Chronic Plan: Stable overnight. Continued epigastric pain. No CP. Troponin levels flat and only slightly elevated, in the setting of renal insufficiency. Recommend check Lexiscan nuclear stress test, cath only if severe or extensive ischemia. Continue beta ignacio, aspirin, no TAL-I or ARB with his renal insufficiency. Will f/u PRN any ischemia seen on nuclear stress testing. (2) Hypertension Code(s): I10 - Essential (primary) hypertension Status: Chronic Plan: Fluctuating BP's. Consider increase metoprolol or add clonidine. (3) Hyperlipidemia Code(s): E78.5 - Hyperlipidemia, unspecified Status: Chronic Plan: Continue statin. Outpatient monitoring and therapy. - Plan Code Status: full code Discussed Condition With: patient (1) Coronary artery disease Qualifiers: Coronary Disease-Associated Artery/Lesion type: [place] artery [place] vs. transplanted heart: [place] heart Associated angina: angina presence unspecified Qualified Code(s): I25.10 - Atherosclerotic heart disease of [place] coronary artery without angina pectoris (2) Hypertension Qualifiers: Hypertension type: essential hypertension Qualified Code(s): I10 - Essential (primary) hypertension (3) Hyperlipidemia Qualifiers: Hyperlipidemia type: unspecified Qualified Code(s): E78.5 - Hyperlipidemia, unspecified
--- NOTE | 2018-01-22 10:29 | P.PN ---
Physical Exam Vital signs: Vital Signs 01/21/18 12:06 01/21/18 12:14 01/21/18 12:19 Temperature 98 F Pulse Rate 59 L 60 61 Respiratory Rate 16 16 Blood Pressure 147/67 H 139/62 Pulse Oximetry 100 100 100 01/21/18 13:14 01/21/18 14:24 01/21/18 14:50 Temperature 97.8 F 97.8 F Pulse Rate 68 64 Respiratory Rate 17 16 Blood Pressure 139/64 130/77 Pulse Oximetry 99 99 01/21/18 16:00 01/21/18 18:00 01/21/18 19:00 Temperature 97.6 F Pulse Rate 62 62 71 Respiratory Rate 20 Blood Pressure 141/73 H Pulse Oximetry 100 01/21/18 20:00 01/21/18 21:00 01/21/18 22:00 Temperature 97.9 F Pulse Rate 66 66 54 L Respiratory Rate 18 Blood Pressure 162/72 H Pulse Oximetry 93 L 01/21/18 23:00 01/22/18 00:00 01/22/18 01:00 Temperature 97.6 F Pulse Rate 58 L 52 L 58 L Respiratory Rate 20 Blood Pressure 138/65 Pulse Oximetry 96 01/22/18 02:00 01/22/18 03:00 01/22/18 04:00 Temperature 98.1 F Pulse Rate 54 L 59 L 60 Respiratory Rate 20 Blood Pressure 130/65 Pulse Oximetry 98 01/22/18 05:00 01/22/18 06:00 01/22/18 07:00 Temperature Pulse Rate 66 56 L 57 L Respiratory Rate Blood Pressure Pulse Oximetry 01/22/18 08:00 01/22/18 09:00 01/22/18 10:00 Temperature 98.1 F Pulse Rate 51 L 58 L 54 L Respiratory Rate 16 Blood Pressure 142/76 H Pulse Oximetry 95 Intake & Output 01/21/18 01/22/18 01/22/18 18:59 06:59 18:59 Intake Total 1480 / 1480 1000 / 1000 Balance 1480 / 1480 1000 / 1000 Weight 81.647 kg 87.2 kg Intake: IV 1000 / 1000 1000 / 1000 NS Inj 1,000 ML @ 80 mls/hr IV. 1000 / 1000 1000 / 1000 CONT .[id number] Rx#:[id number] Oral 480 / 480 Other: # Urine Diapers 2 Date of Last Bowel Movement 01/20/18 01/20/18 01/20/18 Weight On Admission 81.647 kg Narrative: Subjective Patient is in the chair does not appear in acute distress at this time however he complains of chest pain intermittent. Also complains of epigastric pain. Patient has diabetes he might also have gastroparesis. Consider GI series series and consider GI consult if no improvement. Patient can also follow up as OP with GI. However he recently moved in this area and doesn't have established care here. Plan for stress test in the afternoon today. Physical exam GENERAL: Well-developed and well-nourished in mild distress secondary to pain CARDIOVASCULAR: Regular rate and rhythm. RESPIRATORY: No accessory muscle use. Clear to auscultation. Breath sounds equal bilaterally. GASTROINTESTINAL: Abdomen soft, slightly tender epigastric area, nondistended. MUSCULOSKELETAL: Extremities without clubbing, cyanosis, or edema. No obvious deformities. AV fistula left upper extremity with thrill NEUROLOGICAL: Awake and alert. No obvious cranial nerve deficits. Motor grossly within normal limits. Five out of 5 muscle strength in the arms and legs. Normal speech. PSYCHIATRIC: Appropriate mood and affect; insight and judgment normal. Assessment and Plan This is a 67-year-old male who presents with epigastric discomfort, elevated troponin and abnormal EKG. ACS with history of coronary artery disease status post stent. Stat EKG interpreted by me shows sinus rhythm, mild ST elevation V3 to V5 with Q waves. Patient will be kept n.p.o. continue heparin drip and trend cardiac enzymes. Continue aspirin, Lopressor and statin. Start Nitropaste. Dw cardiology. Transfer patient to see IC. Mildly elevated lipase. Denies alcohol use. CT of the abdomen reveals no acute findings to explain abdominal pain. He reports sensation of food getting stuck in his chest. Start PPI and as needed Tums. Will consider consultation with GI after cardiac evaluation. Chronic kidney disease stage IV was on dialysis 2 years ago. He is nonoliguric. Continue gentle IV hydration. Avoid nephrotoxins. Patient aware he might need to be back on dialysis if he undergoes cardiac catheterization. Consultation with nephrology will be placed. Multiple medical conditions of hypertension, hyperlipidemia and diabetes mellitus. Continue outpatient medications as appropriate. Monitor fingersticks with sliding scale coverage. DVT prophylaxis patient on heparin drip Discharge Planning: per cardiology Results - Labs CBC & Chem 7: 01/22/18 04:03 01/22/18 00:53 Laboratory Results - last 24 hr 01/21/18 01/21/18 01/21/18 12:20 12:20 12:20 WBC 10.7 RBC 4.05 L Hgb 10.2 L Hct 32.0 L MCV 78.9 L MCH 25.3 L MCHC 32.0 RDW 16.3 Plt Count 372 MPV 8.3 Neut % (Auto) 69.7 Lymph % (Auto) 19.4 [place] % (Auto) 6.3 Eos % (Auto) 3.6 Baso % (Auto) 1.0 Neut # (Auto) 7.4 Lymph # (Auto) 2.1 [place] # (Auto) 0.7 Eos # (Auto) 0.4 Baso # (Auto) 0.1 WBC Differential . Differential Comment Auto diff final PT 11.2 INR 1.1 APTT 25.4 Sodium 139 Potassium 4.4 Chloride 111 H Carbon Dioxide 21.7 Anion Gap 6 BUN 30 H Creatinine 2.87 H Estimated GFR 22 L POC Glucose Random Glucose 146 H Calcium 8.1 L Phosphorus Magnesium Total Bilirubin 0.8 AST 24 ALT 47 Alkaline Phosphatase 102 Total Creatine Kinase Troponin I 0.32 H Total Protein 7.4 Albumin 3.4 Lipase 408 H Urine Color Urine Clarity Urine pH Ur Specific [place] Urine Protein Urine Glucose (UA) Urine Ketones Urine Occult Blood Urine Nitrate Urine Bilirubin Urine Urobilinogen Ur Leukocyte Esterase Urine RBC Urine WBC Urine WBC Clumps Urine Bacteria Micro UA Comment Urine Culture Comments 01/21/18 01/21/18 01/21/18 17:09 17:58 18:55 WBC RBC Hgb Hct MCV MCH MCHC RDW Plt Count MPV Neut % (Auto) Lymph % (Auto) [place] % (Auto) Eos % (Auto) Baso % (Auto) Neut # (Auto) Lymph # (Auto) [place] # (Auto) Eos # (Auto) Baso # (Auto) WBC Differential Differential Comment PT 11.1 INR 1.1 APTT 34.7 H D Sodium Potassium Chloride Carbon Dioxide Anion Gap BUN Creatinine Estimated GFR POC Glucose 88 Random Glucose Calcium Phosphorus Magnesium Total Bilirubin AST ALT Alkaline Phosphatase Total Creatine Kinase Troponin I Total Protein Albumin Lipase Urine Color Yellow Urine Clarity Cloudy H Urine pH 5.0 Ur Specific [place] 1.013 Urine Protein 100 H Urine Glucose (UA) Negative Urine Ketones Negative Urine Occult Blood Small H Urine Nitrate Negative Urine Bilirubin Negative Urine Urobilinogen Less than 2 Ur Leukocyte Esterase Large H Urine RBC 9 H Urine WBC Urine WBC Clumps Many H Urine Bacteria Many H Micro UA Comment Culture indicated Urine Culture Comments Culture indicated 01/21/18 01/21/18 01/22/18 18:55 21:02 00:53 WBC RBC Hgb Hct MCV MCH MCHC RDW Plt Count MPV Neut % (Auto) Lymph % (Auto) [place] % (Auto) Eos % (Auto) Baso % (Auto) Neut # (Auto) Lymph # (Auto) [place] # (Auto) Eos # (Auto) Baso # (Auto) WBC Differential Differential Comment PT INR APTT Sodium 141 Potassium 4.4 Chloride 112 H Carbon Dioxide 20.9 L Anion Gap 8 BUN 34 H Creatinine 2.89 H Estimated GFR 22 L POC Glucose 157 H Random Glucose 81 Calcium 8.0 L Phosphorus 4.5 Magnesium 2.3 Total Bilirubin 0.8 AST 20 ALT 40 Alkaline Phosphatase 98 Total Creatine Kinase 142 116 Troponin I 0.32 H 0.28 H Total Protein 7.2 Albumin 3.1 L Lipase 397 H Urine Color Urine Clarity Urine pH Ur Specific [place] Urine Protein Urine Glucose (UA) Urine Ketones Urine Occult Blood Urine Nitrate Urine Bilirubin Urine Urobilinogen Ur Leukocyte Esterase Urine RBC Urine WBC Urine WBC Clumps Urine Bacteria Micro UA Comment Urine Culture Comments 01/22/18 01/22/18 01/22/18 00:53 04:03 07:47 WBC 10.8 RBC 4.00 L Hgb 9.9 L Hct 31.4 L MCV 78.4 L MCH 24.8 L MCHC 31.7 L RDW 16.5 Plt Count 336 MPV 8.0 Neut % (Auto) 65.7 Lymph % (Auto) 22.6 [place] % (Auto) 6.8 Eos % (Auto) 4.1 H Baso % (Auto) 0.8 Neut # (Auto) 7.1 Lymph # (Auto) 2.5 [place] # (Auto) 0.7 Eos # (Auto) 0.4 Baso # (Auto) 0.1 WBC Differential . Differential Comment Auto diff final PT INR APTT 47.6 H D Sodium Potassium Chloride Carbon Dioxide Anion Gap BUN Creatinine Estimated GFR POC Glucose 79 Random Glucose Calcium Phosphorus Magnesium Total Bilirubin AST ALT Alkaline Phosphatase Total Creatine Kinase Troponin I Total Protein Albumin Lipase Urine Color Urine Clarity Urine pH Ur Specific [place] Urine Protein Urine Glucose (UA) Urine Ketones Urine Occult Blood Urine Nitrate Urine Bilirubin Urine Urobilinogen Ur Leukocyte Esterase Urine RBC Urine WBC Urine WBC Clumps Urine Bacteria Micro UA Comment Urine Culture Comments 01/22/18 08:37 WBC RBC Hgb Hct MCV MCH MCHC RDW Plt Count MPV Neut % (Auto) Lymph % (Auto) [place] % (Auto) Eos % (Auto) Baso % (Auto) Neut # (Auto) Lymph # (Auto) [place] # (Auto) Eos # (Auto) Baso # (Auto) WBC Differential Differential Comment PT INR APTT 42.5 H Sodium Potassium Chloride Carbon Dioxide Anion Gap BUN Creatinine Estimated GFR POC Glucose Random Glucose Calcium Phosphorus Magnesium Total Bilirubin AST ALT Alkaline Phosphatase Total Creatine Kinase Troponin I Total Protein Albumin Lipase Urine Color Urine Clarity Urine pH Ur Specific [place] Urine Protein Urine Glucose (UA) Urine Ketones Urine Occult Blood Urine Nitrate Urine Bilirubin Urine Urobilinogen Ur Leukocyte Esterase Urine RBC Urine WBC Urine WBC Clumps Urine Bacteria Micro UA Comment Urine Culture Comments - Imaging Impressions Chest X-Ray 01/21/18 12:19 CONCLUSION: Cardiomegaly with no acute cardiopulmonary disease. Abdomen/Pelvis CT 01/21/18 13:32 CONCLUSION: 1. Study is breathing motion degraded. 2. Tiny bilateral pleural effusions. 3. Cardiomegaly. 4. No acute abnormality to explain the patient's pain. 5. Nonobstructing right renal calculi.
--- NOTE | 2018-01-22 10:39 | P.DS ---
Date of admission: 01/21/18 14:16 Primary care physician: UNKNOWN Brief History from admission: This is a 67-year-old male with a history of hypertension, hyperlipidemia, diabetes mellitus and coronary artery disease status post stent 2 years ago. He presents to the emergency department complaining of epigastric pressure discomfort which started 4 days ago. It is an intermittent exertional pain without radiation and not associated with shortness of breath, nausea, palpitations and dizziness. It is relieved with sublingual nitroglycerin but got worse last night prompting ER evaluation. EKG reportedly unremarkable per ER physician (unable to review). Troponin 0.3 and was started on heparin drip. Took aspirin today. Lipase is also slightly elevated at [address] of the abdomen pelvis reveals no acute findings to explain abdominal pain. Patient does report of sensation of food getting stuck in his chest but denies pain after eating. Does not recall having EGD. He also has history of chronic kidney disease stage IV was on dialysis 2 years ago. He is nonoliguric. All other systems reviewed negative DS: Summary Hospital Course: CANCEL - Time Spent with Patient Total time spent providing and/or coordinating discharge services: - Quality: VTE Deep Vein Thrombosis/Pulmonary Embolism Present on Admission: No Exam Vital signs: Vital Signs 01/21/18 12:06 01/21/18 12:14 01/21/18 12:19 Temperature 98 F Pulse Rate 59 L 60 61 Respiratory Rate 16 16 Blood Pressure 147/67 H 139/62 Pulse Oximetry 100 100 100 01/21/18 13:14 01/21/18 14:24 01/21/18 14:50 Temperature 97.8 F 97.8 F Pulse Rate 68 64 Respiratory Rate 17 16 Blood Pressure 139/64 130/77 Pulse Oximetry 99 99 01/21/18 16:00 01/21/18 18:00 01/21/18 19:00 Temperature 97.6 F Pulse Rate 62 62 71 Respiratory Rate 20 Blood Pressure 141/73 H Pulse Oximetry 100 01/21/18 20:00 01/21/18 21:00 01/21/18 22:00 Temperature 97.9 F Pulse Rate 66 66 54 L Respiratory Rate 18 Blood Pressure 162/72 H Pulse Oximetry 93 L 01/21/18 23:00 01/22/18 00:00 01/22/18 01:00 Temperature 97.6 F Pulse Rate 58 L 52 L 58 L Respiratory Rate 20 Blood Pressure 138/65 Pulse Oximetry 96 01/22/18 02:00 01/22/18 03:00 01/22/18 04:00 Temperature 98.1 F Pulse Rate 54 L 59 L 60 Respiratory Rate 20 Blood Pressure 130/65 Pulse Oximetry 98 01/22/18 05:00 01/22/18 06:00 01/22/18 07:00 Temperature Pulse Rate 66 56 L 57 L Respiratory Rate Blood Pressure Pulse Oximetry 01/22/18 08:00 01/22/18 09:00 01/22/18 10:00 Temperature 98.1 F Pulse Rate 51 L 58 L 54 L Respiratory Rate 16 Blood Pressure 142/76 H Pulse Oximetry 95 Intake & Output 01/21/18 01/22/18 01/22/18 18:59 06:59 18:59 Intake Total 1480 / 1480 1000 / 1000 Balance 1480 / 1480 1000 / 1000 Weight 81.647 kg 87.2 kg Intake: IV 1000 / 1000 1000 / 1000 NS Inj 1,000 ML @ 80 mls/hr IV. 1000 / 1000 1000 / 1000 CONT .[id number] [facility] Rx#:[id number] Oral 480 / 480 Other: # Urine Diapers 2 Date of Last Bowel Movement 01/20/18 01/20/18 01/20/18 Weight On Admission 81.647 kg Results Procedures completed during hospitalization: CANCEL Labs on day of discharge: Labs from last 24 hours 01/22/18 01/22/18 01/22/18 08:37 07:47 04:03 WBC 10.8 RBC 4.00 L Hgb 9.9 L Hct 31.4 L MCV 78.4 L MCH 24.8 L MCHC 31.7 L RDW 16.5 Plt Count 336 MPV 8.0 Neut % (Auto) 65.7 Lymph % (Auto) 22.6 [place] % (Auto) 6.8 Eos % (Auto) 4.1 H Baso % (Auto) 0.8 Neut # (Auto) 7.1 Lymph # (Auto) 2.5 [place] # (Auto) 0.7 Eos # (Auto) 0.4 Baso # (Auto) 0.1 WBC Differential . Differential Comment Auto diff final PT INR APTT 42.5 H Sodium Potassium Chloride Carbon Dioxide Anion Gap BUN Creatinine Estimated GFR POC Glucose 79 Random Glucose Calcium Phosphorus Magnesium Total Bilirubin AST ALT Alkaline Phosphatase Total Creatine Kinase Troponin I Total Protein Albumin Lipase Urine Color Urine Clarity Urine pH Ur Specific [place] Urine Protein Urine Glucose (UA) Urine Ketones Urine Occult Blood Urine Nitrate Urine Bilirubin Urine Urobilinogen Ur Leukocyte Esterase Urine RBC Urine WBC Urine WBC Clumps Urine Bacteria Micro UA Comment Urine Culture Comments 01/22/18 01/22/18 01/21/18 00:53 00:53 21:02 WBC RBC Hgb Hct MCV MCH MCHC RDW Plt Count MPV Neut % (Auto) Lymph % (Auto) [place] % (Auto) Eos % (Auto) Baso % (Auto) Neut # (Auto) Lymph # (Auto) [place] # (Auto) Eos # (Auto) Baso # (Auto) WBC Differential Differential Comment PT INR APTT 47.6 H D Sodium 141 Potassium 4.4 Chloride 112 H Carbon Dioxide 20.9 L Anion Gap 8 BUN 34 H Creatinine 2.89 H Estimated GFR 22 L POC Glucose 157 H Random Glucose 81 Calcium 8.0 L Phosphorus 4.5 Magnesium 2.3 Total Bilirubin 0.8 AST 20 ALT 40 Alkaline Phosphatase 98 Total Creatine Kinase 116 Troponin I 0.28 H Total Protein 7.2 Albumin 3.1 L Lipase 397 H Urine Color Urine Clarity Urine pH Ur Specific [place] Urine Protein Urine Glucose (UA) Urine Ketones Urine Occult Blood Urine Nitrate Urine Bilirubin Urine Urobilinogen Ur Leukocyte Esterase Urine RBC Urine WBC Urine WBC Clumps Urine Bacteria Micro UA Comment Urine Culture Comments 01/21/18 01/21/18 01/21/18 18:55 18:55 17:58 WBC RBC Hgb Hct MCV MCH MCHC RDW Plt Count MPV Neut % (Auto) Lymph % (Auto) [place] % (Auto) Eos % (Auto) Baso % (Auto) Neut # (Auto) Lymph # (Auto) [place] # (Auto) Eos # (Auto) Baso # (Auto) WBC Differential Differential Comment PT 11.1 INR 1.1 APTT 34.7 H D Sodium Potassium Chloride Carbon Dioxide Anion Gap BUN Creatinine Estimated GFR POC Glucose Random Glucose Calcium Phosphorus Magnesium Total Bilirubin AST ALT Alkaline Phosphatase Total Creatine Kinase 142 Troponin I 0.32 H Total Protein Albumin Lipase Urine Color Yellow Urine Clarity Cloudy H Urine pH 5.0 Ur Specific [place] 1.013 Urine Protein 100 H Urine Glucose (UA) Negative Urine Ketones Negative Urine Occult Blood Small H Urine Nitrate Negative Urine Bilirubin Negative Urine Urobilinogen Less than 2 Ur Leukocyte Esterase Large H Urine RBC 9 H Urine WBC Urine WBC Clumps Many H Urine Bacteria Many H Micro UA Comment Culture indicated Urine Culture Comments Culture indicated 01/21/18 01/21/18 01/21/18 17:09 12:20 12:20 WBC RBC Hgb Hct MCV MCH MCHC RDW Plt Count MPV Neut % (Auto) Lymph % (Auto) [place] % (Auto) Eos % (Auto) Baso % (Auto) Neut # (Auto) Lymph # (Auto) [place] # (Auto) Eos # (Auto) Baso # (Auto) WBC Differential Differential Comment PT 11.2 INR 1.1 APTT 25.4 Sodium 139 Potassium 4.4 Chloride 111 H Carbon Dioxide 21.7 Anion Gap 6 BUN 30 H Creatinine 2.87 H Estimated GFR 22 L POC Glucose 88 Random Glucose 146 H Calcium 8.1 L Phosphorus Magnesium Total Bilirubin 0.8 AST 24 ALT 47 Alkaline Phosphatase 102 Total Creatine Kinase Troponin I 0.32 H Total Protein 7.4 Albumin 3.4 Lipase 408 H Urine Color Urine Clarity Urine pH Ur Specific [place] Urine Protein Urine Glucose (UA) Urine Ketones Urine Occult Blood Urine Nitrate Urine Bilirubin Urine Urobilinogen Ur Leukocyte Esterase Urine RBC Urine WBC Urine WBC Clumps Urine Bacteria Micro UA Comment Urine Culture Comments 01/21/18 12:20 WBC 10.7 RBC 4.05 L Hgb 10.2 L Hct 32.0 L MCV 78.9 L MCH 25.3 L MCHC 32.0 RDW 16.3 Plt Count 372 MPV 8.3 Neut % (Auto) 69.7 Lymph % (Auto) 19.4 [place] % (Auto) 6.3 Eos % (Auto) 3.6 Baso % (Auto) 1.0 Neut # (Auto) 7.4 Lymph # (Auto) 2.1 [place] # (Auto) 0.7 Eos # (Auto) 0.4 Baso # (Auto) 0.1 WBC Differential . Differential Comment Auto diff final PT INR APTT Sodium Potassium Chloride Carbon Dioxide Anion Gap BUN Creatinine Estimated GFR POC Glucose Random Glucose Calcium Phosphorus Magnesium Total Bilirubin AST ALT Alkaline Phosphatase Total Creatine Kinase Troponin I Total Protein Albumin Lipase Urine Color Urine Clarity Urine pH Ur Specific [place] Urine Protein Urine Glucose (UA) Urine Ketones Urine Occult Blood Urine Nitrate Urine Bilirubin Urine Urobilinogen Ur Leukocyte Esterase Urine RBC Urine WBC Urine WBC Clumps Urine Bacteria Micro UA Comment Urine Culture Comments - Impressions ITS Impressions Chest X-Ray 01/21/18 12:19 CONCLUSION: Cardiomegaly with no acute cardiopulmonary disease. Abdomen/Pelvis CT 01/21/18 13:32 CONCLUSION: 1. Study is breathing motion degraded. 2. Tiny bilateral pleural effusions. 3. Cardiomegaly. 4. No acute abnormality to explain the patient's pain. 5. Nonobstructing right renal calculi. Discharge Plan - Discharge Disposition Patient Disposition: 01 Discharge Home - Discharge Condition Condition: Stable - Discharge Order Discharge Orders: Cardiology Clear for Discharge (Routine); Ordered 01/22/18 Ordered By: John Young - Discharge Details Anticipated Discharge Date: 01/22/18 - Physicians Team Primary Care Provider: UNKNOWN, Attending Provider: Kirby Birch Other Providers: John Young MD ; Ermias Yanes MD ; Mignon Crow
--- NOTE | 2018-01-22 10:56 | P.PNNP ---
Subjective Interval history: Patient is alert, no SOB, no chest pain, mild epi. discomfort after eating, no nausea. Physical Exam Vital signs: Vital Signs 01/21/18 12:06 01/21/18 12:14 01/21/18 12:19 Temperature 98 F Pulse Rate 59 L 60 61 Respiratory Rate 16 16 Blood Pressure 147/67 H 139/62 Pulse Oximetry 100 100 100 01/21/18 13:14 01/21/18 14:24 01/21/18 14:50 Temperature 97.8 F 97.8 F Pulse Rate 68 64 Respiratory Rate 17 16 Blood Pressure 139/64 130/77 Pulse Oximetry 99 99 01/21/18 16:00 01/21/18 18:00 01/21/18 19:00 Temperature 97.6 F Pulse Rate 62 62 71 Respiratory Rate 20 Blood Pressure 141/73 H Pulse Oximetry 100 01/21/18 20:00 01/21/18 21:00 01/21/18 22:00 Temperature 97.9 F Pulse Rate 66 66 54 L Respiratory Rate 18 Blood Pressure 162/72 H Pulse Oximetry 93 L 01/21/18 23:00 01/22/18 00:00 01/22/18 01:00 Temperature 97.6 F Pulse Rate 58 L 52 L 58 L Respiratory Rate 20 Blood Pressure 138/65 Pulse Oximetry 96 01/22/18 02:00 01/22/18 03:00 01/22/18 04:00 Temperature 98.1 F Pulse Rate 54 L 59 L 60 Respiratory Rate 20 Blood Pressure 130/65 Pulse Oximetry 98 01/22/18 05:00 01/22/18 06:00 01/22/18 07:00 Temperature Pulse Rate 66 56 L 57 L Respiratory Rate Blood Pressure Pulse Oximetry 01/22/18 08:00 01/22/18 09:00 01/22/18 10:00 Temperature 98.1 F Pulse Rate 51 L 58 L 54 L Respiratory Rate 16 Blood Pressure 142/76 H Pulse Oximetry 95 Intake & Output 01/21/18 01/22/18 01/22/18 18:59 06:59 18:59 Intake Total 1480 / 1480 1000 / 1000 Balance 1480 / 1480 1000 / 1000 Weight 81.647 kg 87.2 kg Intake: IV 1000 / 1000 1000 / 1000 NS Inj 1,000 ML @ 80 mls/hr IV. 1000 / 1000 1000 / 1000 CONT .[id number] Rx#:[id number] Oral 480 / 480 Other: # Urine Diapers 2 Date of Last Bowel Movement 01/20/18 01/20/18 01/20/18 Weight On Admission 81.647 kg - Constitutional no acute distress - Routine HEENT Exam Head: Present: normocephalic - Routine Neck Exam Present: supple, JVD - Routine Respiratory Exam Present: decreased breath sounds, rhonchi, distant breath sounds, diminished air movement - Routine Cardiovascular Exam Present: RRR, S1, S2 - Routine Abdominal Exam Present: soft, normoactive bowel sounds, tenderness - Routine Neurological Exam Present: alert, oriented X3 - Detailed Neurological Exam: Coma Scale Eye Opening: Spontaneous Assessment and Plan - Assessment (1) CKD (chronic kidney disease), stage IV Code(s): N18.4 - Chronic kidney disease, stage 4 (severe) Status: Acute Plan: His son reports a baseline CKD 4, GFR of 24-27 UA pending to look for proteinuria. Imaging shows non obstructing renal stones. He has a hx of the same. His renal function is at baseline. Dialysis is not required at this time. Reduce IVF to 30 cc/hr. PO fluids encouraged. Repeat labs Obtain UA Avoid nephrotoxins Creatinine is stable, Has stage 4 chronic kidney disease. (2) Non-ST elevation (NSTEMI) myocardial infarction Code(s): I21.4 - Non-ST elevation (NSTEMI) myocardial infarction Status: Acute Plan: Cardiology has evaluated. Echo pending. ON heparin, statin, and ASA Serial troponin, may need stress test.
[2018-01-22] MEDS ORDERED: Regadenoson Inj 0.4 MG/5 ML Syringe IV.PUSH ONE (14:00)
--- NOTE | 2018-01-22 15:46 | NM ---
EXAM DATE: 01/22/2018 3:40 PM EDT AGE/SEX: 67 years / Male INDICATIONS:Abnormal EKG. . Epigastric pain. CLINICAL DATA: This is the patient's initial encounter. Patient reports that signs and symptoms have been present for 1 day and indicates a pain score of 3/10. MEDICAL/SURGICAL HISTORY: Diabetes mellitus type II. Hypercholesterolemia. Hypertension. Appe ndectomy. Cholecystectomy. Nephrectomy, right. COMPARISON: No prior exams available for comparison. DOSE: 8.7 mCi Tc 99m Myoview at stress 27.4 mCi [id number] at rest 0.4 mg Lexiscan STRESS SYMPTOMS: Dyspnea and chest pain. EJECTION FRACTION: 25 % TECHNIQUE: The patient underwent pharmacologic stress with infusion of prescribed dose. Continuous ECG tracing was monitored during stress. Gated SPECT imaging was performed after stress and conventi onal SPECT imaging was performed at rest. The examination was performed on a SPECT/CT scanner, both attenuation and non-corrected datasets were reviewed. FINDINGS: Distribution: The maximum perfused segment at stress is in the anterolateral wall. Perfusion Study: The pattern of perfusion at stress demonstrates a dilated left ventricular chamber with absence of perfusion to the low anterior wall and anteroseptal wall. There is diminished perfus ion to the posterior basal wall without any significant ischemia. Gated Study: There is global hypokinesis. The ejection fraction is calculated at 25%. RISK CATEGORY: Intermediate (1-3 % Annual Mortality Rate) CONCLUSION: 1. Significant reduction in ejection fraction and global hypokinesis without any significant ischemi a. Electronically signed by: Kim Ontiveros MD 01/22/2018 3:44 PM EDT
--- NOTE | 2018-01-22 17:13 | ECG ---
Date Performed: 01/21/2018 Time Performed: 12:08:49 PTAGE: 67 years EKG: Sinus rhythm WITH FIRST DEGREE AV BLOCK POSSIBLE LEFT ATRIAL ENLARGEMENT LEFT ANTERIOR FASCICULAR BLOCK ANTEROLAT ERAL MYOCARDIAL INFARCTION, AGE INDETERMINANT NO PREVIOUS TRACING DOCTOR: Iker Plascencia Interpretating Date/Time 01/22/2018 17:13:21
--- NOTE | 2018-01-22 17:13 | ECG ---
Date Performed: 01/21/2018 Time Performed: 15:43:04 PTAGE: 67 years EKG: Sinus rhythm WITH SINUS ARRHYTHMIA S1-S2-S3 PATTERN, CONSISTENT WITH PULMONARY DISEASE, RVH, OR NORMAL VARIANT IN COMPLETE RIGHT BUNDLE BRANCH BLOCK LEFT ANTERIOR FASCICULAR BLOCK ANTEROLATERAL MYOCARDIAL INFARCTION , AGE INDETERMINANT NO PREVIOUS TRACING DOCTOR: Iker Plascencia Interpretating Date/Time 01/22/2018 17:13:35
--- NOTE | 2018-01-22 17:14 | ECG ---
Date Performed: 01/21/2018 Time Performed: 19:13:38 PTAGE: 67 years EKG: Sinus rhythm with 1st degree A-V block Left anterior fascicular block Anteroseptal infarct - age undetermined Lat eral T wave changes are nonspecific Since the previous tracing, no significant change noted Abnormal ECG PREVIOUS TRACING : 01/21/2018 15.43 DOCTOR: Iker Plascencia Interpretating Date/Time 01/22/2018 17:13:49
--- NOTE | 2018-01-22 17:16 | ECG ---
Date Performed: 01/21/2018 Time Performed: 23:43:28 PTAGE: 67 years EKG: Sinus bradycardia with 1st degree A-V block Left axis deviation Anteroseptal infarct - age undetermined Possible left ventricular hypertrophy Inferior/lateral T wave changes may be due to hype rtrophy and/or ischemia Since the previous tracing, no significant change noted Abnormal ECG PREVIOUS TRACING : 01/21/2018 19.13 DOCTOR: Iker Plascencia Interpretating Date/Time 01/22/2018 17:14:31
[2018-01-23 04:30] LABS: Hematocrit 32.5 % (39.0-51.0); Hemoglobin 10.4 gm/dL (13.0-17.0); Mean Corpuscular HGB Conc 31.9 % (32.0-36.0); Mean Corpuscular Hemoglobin 25.3 pg (27.0-34.0); Mean Corpuscular Volume 79.5 fL (80.0-100.0); Mean Platelet Volume 8.6 fL (7.0-11.0); Platelet Count 330 th/mm3 (150-450); Red Blood Count 4.09 mil/mm3 (4.50-5.90); Red Cell Distribution Width 16.7 % (11.6-17.2); White Blood Count 10.7 th/mm3 (4.0-11.0)
[2018-01-23] MEDS: Isosorbide Mononitrate 60 MG ER 24HR Tablet (Imdur) PO SCH (06:32)
[2018-01-23] MEDS: guaiFENesin 600 MG ER Tablet PO SCH ×2 (09:22→21:19)
[2018-01-23] MEDS: Metoprolol Tartrate 50 MG Tablet PO SCH ×2 (09:22→21:19)
[2018-01-23] MEDS: amLODIPine 10 MG Tablet PO SCH (09:22)
[2018-01-23] MEDS: Senna/Docusate Sodium 8.6/50 MG Tablet PO SCH ×2 (09:23→21:19)
--- NOTE | 2018-01-23 12:21 | P.PNNP ---
Subjective Interval history: Patient seen, alert, no SOB, no chest pain. Physical Exam Vital signs: Vital Signs 01/22/18 13:00 01/22/18 14:00 01/22/18 15:00 Temperature Pulse Rate 80 59 L 59 L Respiratory Rate Blood Pressure Pulse Oximetry 01/22/18 16:00 01/22/18 17:00 01/22/18 17:24 Temperature 98.1 F Pulse Rate 61 59 L Respiratory Rate 16 Blood Pressure 155/75 H Pulse Oximetry 100 96 01/22/18 18:00 01/22/18 19:00 01/22/18 19:01 Temperature Pulse Rate 61 67 64 Respiratory Rate Blood Pressure Pulse Oximetry 01/22/18 20:00 01/22/18 21:00 01/22/18 22:00 Temperature 97.7 F Pulse Rate 64 64 64 Respiratory Rate 18 Blood Pressure 170/83 H Pulse Oximetry 96 01/22/18 23:00 01/23/18 00:00 01/23/18 01:00 Temperature 98.4 F Pulse Rate 60 66 58 L Respiratory Rate 18 Blood Pressure 131/57 L Pulse Oximetry 98 01/23/18 02:00 01/23/18 03:00 01/23/18 04:00 Temperature 98.7 F Pulse Rate 60 61 53 L Respiratory Rate 16 Blood Pressure 150/82 H Pulse Oximetry 97 01/23/18 05:00 01/23/18 06:00 01/23/18 07:00 Temperature Pulse Rate 54 L 56 L 63 Respiratory Rate Blood Pressure Pulse Oximetry 01/23/18 08:00 01/23/18 12:00 Temperature 97.6 F 97.4 F L Pulse Rate 59 L 63 Respiratory Rate 18 20 Blood Pressure 151/66 H 163/76 H Pulse Oximetry 95 95 Intake & Output 01/22/18 01/23/18 01/23/18 18:59 06:59 18:59 Intake Total 1830 / 1830 Output Total 620 / 620 Balance 1210 / 1210 Weight 88.1 kg Intake: IV 1350 / 1350 Heparin/D5W 25,000 U/250 mL 25, 250 / 250 000 unit In 250 ml @ Per Protocol IV.CONT TITRATE PRN Rx #:[id number] NS Inj 1,000 ML @ 80 mls/hr IV. 1000 / 1000 CONT .[id number] [facility] Rx#:[id number] Rocephin Inj 1,000 MG In NS Inj 100 / 100 100 ML @ 200 mls/hr IV.SIG Q24H [facility] Rx#:[id number] Oral 480 / 480 Output: Urine 620 / 620 Other: Date of Last Bowel Movement 01/20/18 01/22/18 01/22/18 Narrative: Physical exam GENERAL: Well-developed and well-nourished in mild distress secondary to pain CARDIOVASCULAR: Regular rate and rhythm. RESPIRATORY: No accessory muscle use. Clear to auscultation. Breath sounds equal bilaterally. GASTROINTESTINAL: Abdomen soft, slightly tender epigastric area, nondistended. MUSCULOSKELETAL: Extremities without clubbing, cyanosis, or edema. No obvious deformities. AV fistula left upper extremity with thrill NEUROLOGICAL: Awake and alert. No obvious cranial nerve deficits. Motor grossly within normal limits. Five out of 5 muscle strength in the arms and legs. Normal speech. PSYCHIATRIC: Appropriate mood and affect; insight and judgment normal. Assessment and Plan - Assessment (1) CKD (chronic kidney disease), stage IV Code(s): N18.4 - Chronic kidney disease, stage 4 (severe) Status: Acute Plan: His son reports a baseline CKD 4, GFR of 24-27 UA pending to look for proteinuria. Imaging shows non obstructing renal stones. He has a hx of the same. His renal function is at baseline. Dialysis is not required at this time. Reduce IVF to 30 cc/hr. PO fluids encouraged. Repeat labs Obtain UA Avoid nephrotoxins Creatinine is stable, Has stage [address] Yanes will follow from AM. (2) Non-ST elevation (NSTEMI) myocardial infarction Code(s): I21.4 - Non-ST elevation (NSTEMI) myocardial infarction Status: Acute Plan: Cardiology has evaluated. Echo pending. ON heparin, statin, and ASA Serial troponin, may need stress test. - Plan He is cleared for discharge from renal perspective. If no intervention is planned, we will follow in CKD clinic.
--- NOTE | 2018-01-23 15:47 | P.PNIM ---
Subjective Interval history: This is a 67-year-old male with a history of hypertension, hyperlipidemia, diabetes mellitus and coronary artery disease status post stent 2 years ago. He presents to the emergency department complaining of epigastric pressure discomfort which started 4 days ago. It is an intermittent exertional pain without radiation and not associated with shortness of breath, nausea, palpitations and dizziness. It is relieved with sublingual nitroglycerin but got worse last night prompting ER evaluation. EKG reportedly unremarkable per ER physician (unable to review). Troponin 0.3 and was started on heparin drip. Took aspirin today. Lipase is also slightly elevated at [address] of the abdomen pelvis reveals no acute findings to explain abdominal pain. Patient does report of sensation of food getting stuck in his chest but denies pain after eating. Does not recall having EGD. He also has history of chronic kidney disease stage IV was on dialysis 2 years ago. He is nonoliguric. All other systems reviewed negative 01-22 Patient is in the chair does not appear in acute distress at this time however he complains of chest pain intermittent. Also complains of epigastric pain. Patient has diabetes he might also have gastroparesis. Consider GI series series and consider GI consult if no improvement. Patient can also follow up as OP with GI. However he recently moved in this area and doesn't have established care here. Plan for stress test in the afternoon today. 01-23 NOTED TO BE ESBL POSITIVE FOR UTI WILL START MEDS AND CONSULT ID--START INVANZ AM LABS OK TO MOVE OFF OF CIC NOT CLEARED FOR DC DW RN AND PT AND FAMILY AND CM STRESS TEST NO ISCHEMIA BUT EF OF ONLY 25% START INVANZ Physical Exam Vital signs: Vital Signs 01/22/18 16:00 01/22/18 17:00 01/22/18 17:24 Temperature 98.1 F Pulse Rate 61 59 L Respiratory Rate 16 Blood Pressure 155/75 H Pulse Oximetry 100 96 01/22/18 18:00 01/22/18 19:00 01/22/18 19:01 Temperature Pulse Rate 61 67 64 Respiratory Rate Blood Pressure Pulse Oximetry 01/22/18 20:00 01/22/18 21:00 01/22/18 22:00 Temperature 97.7 F Pulse Rate 64 64 64 Respiratory Rate 18 Blood Pressure 170/83 H Pulse Oximetry 96 01/22/18 23:00 01/23/18 00:00 01/23/18 01:00 Temperature 98.4 F Pulse Rate 60 66 58 L Respiratory Rate 18 Blood Pressure 131/57 L Pulse Oximetry 98 01/23/18 02:00 01/23/18 03:00 01/23/18 04:00 Temperature 98.7 F Pulse Rate 60 61 53 L Respiratory Rate 16 Blood Pressure 150/82 H Pulse Oximetry 97 01/23/18 05:00 01/23/18 06:00 01/23/18 07:00 Temperature Pulse Rate 54 L 56 L 63 Respiratory Rate Blood Pressure Pulse Oximetry 01/23/18 08:00 01/23/18 09:00 01/23/18 10:00 Temperature 97.6 F Pulse Rate 56 L 64 54 L Respiratory Rate 18 Blood Pressure 151/66 H Pulse Oximetry 95 01/23/18 11:00 01/23/18 12:00 01/23/18 13:00 Temperature 97.4 F L Pulse Rate 56 L 54 L 60 Respiratory Rate 20 Blood Pressure 163/76 H Pulse Oximetry 95 Intake & Output 01/22/18 01/23/18 01/23/18 18:59 06:59 18:59 Intake Total 1830 / 1830 Output Total 620 / 620 Balance 1210 / 1210 Weight 88.1 kg Intake: IV 1350 / 1350 Heparin/D5W 25,000 U/250 mL 25, 250 / 250 000 unit In 250 ml @ Per Protocol IV.CONT TITRATE PRN Rx #:[id number] NS Inj 1,000 ML @ 80 mls/hr IV. 1000 / 1000 CONT .[id number] [facility] Rx#:[id number] Rocephin Inj 1,000 MG In NS Inj 100 / 100 100 ML @ 200 mls/hr IV.SIG Q24H [facility] Rx#:[id number] Oral 480 / 480 Output: Urine 620 / 620 Other: Date of Last Bowel Movement 01/20/18 01/22/18 01/22/18 Narrative: Physical exam GENERAL: Well-developed and well-nourished in mild distress secondary to pain CARDIOVASCULAR: Regular rate and rhythm. RESPIRATORY: No accessory muscle use. Clear to auscultation. Breath sounds equal bilaterally. GASTROINTESTINAL: Abdomen soft, slightly tender epigastric area, nondistended. MUSCULOSKELETAL: Extremities without clubbing, cyanosis, or edema. No obvious deformities. AV fistula left upper extremity with thrill NEUROLOGICAL: Awake and alert. No obvious cranial nerve deficits. Motor grossly within normal limits. Five out of 5 muscle strength in the arms and legs. Normal speech. PSYCHIATRIC: Appropriate mood and affect; insight and judgment normal. Results - Labs CBC & Chem 7: 01/23/18 03:35 01/22/18 00:53 Laboratory Results - last 24 hr 01/22/18 01/23/18 01/23/18 21:18 03:35 08:56 WBC 10.7 RBC 4.09 L Hgb 10.4 L Hct 32.5 L MCV 79.5 L MCH 25.3 L MCHC 31.9 L RDW 16.7 Plt Count 330 MPV 8.6 POC Glucose 88 98 01/23/18 11:46 WBC RBC Hgb Hct MCV MCH MCHC RDW Plt Count MPV POC Glucose 133 H Microbiology 01/21/18 17:58 Clean Catch Urine Urine Culture - Final Escherichia coli ESBL positive - Imaging Impressions Myocardial Perfusion Scan Nuc Med 01/22/18 00:00 CONCLUSION: 1. Significant reduction in ejection fraction and global hypokinesis without any significant ischemia. - Procedures NONE Assessment and Plan - Plan This is a 67-year-old male who presents with epigastric discomfort, elevated troponin and abnormal EKG. ACS with history of coronary artery disease status post stent. Stat EKG interpreted by me shows sinus rhythm, mild ST elevation V3 to V5 with Q waves. Patient will be kept n.p.o. continue heparin drip and trend cardiac enzymes. Continue aspirin, Lopressor and statin. Start Nitropaste. Dw cardiology. Transfer patient to see IC. Mildly elevated lipase. Denies alcohol use. CT of the abdomen reveals no acute findings to explain abdominal pain. He reports sensation of food getting stuck in his chest. Start PPI and as needed Tums. Will consider consultation with GI after cardiac evaluation. Chronic kidney disease stage IV was on dialysis 2 years ago. He is nonoliguric. Continue gentle IV hydration. Avoid nephrotoxins. Patient aware he might need to be back on dialysis if he undergoes cardiac catheterization. Consultation with nephrology will be placed. UTI WITH ESBL POSITIVE E. COLI - CONSULT ID START ANTIBIOTICS INVANZ IV DAILY STRESS TEST NO ISCHEMIA BUT EF OF 25% Multiple medical conditions of hypertension, hyperlipidemia and diabetes mellitus. Continue outpatient medications as appropriate. Monitor fingersticks with sliding scale coverage. DVT prophylaxis patient OFF HEPARIN DRIP Code Status: FULL CODE Discussed Condition With: RN AND PT AND FAMILY AND CM Discharge Planning: OK TO TRANSFER OFF FLOOR CONSULT ID
[2018-01-23] MEDS: Insulin NovoLOG Aspart Correctional Sugar Inj SQ SCH ×2 (17:24→19:06)
[2018-01-23] MEDS: Lactobacillus Acidophilus/L. Spores Tablet PO SCH (17:34)
[2018-01-24] MEDS: Isosorbide Mononitrate 60 MG ER 24HR Tablet (Imdur) PO SCH (06:21)
[2018-01-24 06:45] LABS: Baso % (Auto) 0.4 % (0.0-2.0); Eos # (Auto) 0.3 th/mm3 (0.0-0.4); Eos % (Auto) 3.6 % (0.0-4.0); Hematocrit 31.8 % (39.0-51.0); Hemoglobin 10.1 gm/dL (13.0-17.0); Lymph # (Auto) 1.3 th/mm3 (1.0-4.8); Lymph % (Auto) 13.6 % (9.0-44.0); Mean Corpuscular HGB Conc 31.7 % (32.0-36.0); Mean Corpuscular Hemoglobin 25.2 pg (27.0-34.0); Mean Corpuscular Volume 79.6 fL (80.0-100.0); Mean Platelet Volume 8.8 fL (7.0-11.0); Mono # (Auto) 0.5 th/mm3 (0.0-0.9); Mono % (Auto) 4.8 % (0.0-8.0); Neut # (Auto) 7.6 th/mm3 (1.8-7.7); Neut % (Auto) 77.6 % (16.0-70.0); Platelet Count 342 th/mm3 (150-450); Red Blood Count 3.99 mil/mm3 (4.50-5.90); Red Cell Distribution Width 16.5 % (11.6-17.2); White Blood Count 9.8 th/mm3 (4.0-11.0)
[2018-01-24 07:02] LABS: Albumin 3.3 g/dL (3.4-5.0); Anion Gap 7 meq/L (5-15); Aspartate Aminotransferase 29 U/L (15-37); Blood Urea Nitrogen 44 mg/dL (7-18); Calcium 8.3 mg/dL (8.5-10.1); Carbon Dioxide 21.9 meq/L (21.0-32.0); Chloride 112 meq/L (98-107); Glomerular Filtration Rate 20 mL/min (>89); Glucose,Random 102 mg/dL (74-106); Magnesium 2.3 mg/dL (1.5-2.5); Potassium 4.9 meq/L (3.5-5.1); Sodium 141 meq/L (136-145)
[2018-01-24 07:10] LABS: Alanine Aminotransferase 50 U/L (12-78); Alkaline Phosphatase 107 U/L (45-117); Free T4 (Free Thyroxine) 1.01 ng/dL (0.76-1.46); Total Protein 7.6 g/dL (6.4-8.2)
[2018-01-24] MEDS: Insulin NovoLOG Aspart Correctional Sugar Inj SQ SCH ×3 (08:04→22:51)
[2018-01-24] MEDS: Lactobacillus Acidophilus/L. Spores Tablet PO SCH ×3 (09:19→17:20)
[2018-01-24] MEDS: guaiFENesin 600 MG ER Tablet PO SCH ×2 (09:19→21:45)
[2018-01-24] MEDS: amLODIPine 10 MG Tablet PO SCH (09:19)
[2018-01-24] MEDS: Metoprolol Tartrate 50 MG Tablet PO SCH ×2 (09:20→21:45)
[2018-01-24] MEDS: Senna/Docusate Sodium 8.6/50 MG Tablet PO SCH ×2 (09:20→21:45)
--- NOTE | 2018-01-24 10:48 | P.PNIM ---
Subjective Interval history: This is a 67-year-old male with a history of hypertension, hyperlipidemia, diabetes mellitus and coronary artery disease status post stent 2 years ago. He presents to the emergency department complaining of epigastric pressure discomfort which started 4 days ago. It is an intermittent exertional pain without radiation and not associated with shortness of breath, nausea, palpitations and dizziness. It is relieved with sublingual nitroglycerin but got worse last night prompting ER evaluation. EKG reportedly unremarkable per ER physician (unable to review). Troponin 0.3 and was started on heparin drip. Took aspirin today. Lipase is also slightly elevated at [address] of the abdomen pelvis reveals no acute findings to explain abdominal pain. Patient does report of sensation of food getting stuck in his chest but denies pain after eating. Does not recall having EGD. He also has history of chronic kidney disease stage IV was on dialysis 2 years ago. He is nonoliguric. All other systems reviewed negative 01-22 Patient is in the chair does not appear in acute distress at this time however he complains of chest pain intermittent. Also complains of epigastric pain. Patient has diabetes he might also have gastroparesis. Consider GI series series and consider GI consult if no improvement. Patient can also follow up as OP with GI. However he recently moved in this area and doesn't have established care here. Plan for stress test in the afternoon today. 01-23 NOTED TO BE ESBL POSITIVE FOR UTI WILL START MEDS AND CONSULT ID--START INVANZ AM LABS OK TO MOVE OFF OF CIC NOT CLEARED FOR DC YANIQUE RN AND PT AND FAMILY AND CM STRESS TEST NO ISCHEMIA BUT EF OF ONLY 25% START INVANZ 01-24 YANIQUE RN AND PT AND CM AND ID RENAL INSUFFICIENCY TODAY AM LABS START GENTLE FLUID REHYDRATION NEEDS PT AND OT Physical Exam Vital signs: Vital Signs 01/23/18 11:00 01/23/18 12:00 01/23/18 13:00 Temperature 97.4 F L Pulse Rate 56 L 54 L 60 Respiratory Rate 20 Blood Pressure 163/76 H Pulse Oximetry 95 01/23/18 14:00 01/23/18 15:00 01/23/18 16:00 Temperature 97.6 F Pulse Rate 56 L 56 L 60 Respiratory Rate 18 Blood Pressure 151/68 H Pulse Oximetry 96 01/23/18 17:00 01/23/18 18:00 01/23/18 20:00 Temperature 97.5 F L Pulse Rate 62 70 63 Respiratory Rate 18 Blood Pressure 149/71 H Pulse Oximetry 96 01/23/18 20:55 01/23/18 22:00 01/23/18 23:00 Temperature Pulse Rate 63 60 62 Respiratory Rate Blood Pressure Pulse Oximetry 01/24/18 00:00 01/24/18 01:00 01/24/18 02:00 Temperature 97.8 F Pulse Rate 62 60 60 Respiratory Rate 18 Blood Pressure 147/56 H Pulse Oximetry 01/24/18 03:00 01/24/18 04:00 01/24/18 05:00 Temperature 97.8 F Pulse Rate 60 53 L 60 Respiratory Rate 18 Blood Pressure 159/74 H Pulse Oximetry 01/24/18 06:00 01/24/18 07:00 01/24/18 08:00 Temperature 98.0 F Pulse Rate 60 55 L 60 Respiratory Rate 18 Blood Pressure 142/67 H Pulse Oximetry 95 Intake & Output 01/23/18 01/24/18 01/24/18 18:59 06:59 18:59 Intake Total 500 / 500 Balance 500 / 500 Weight 87.7 kg Intake: IV 100 / 100 Rocephin Inj 1,000 MG In NS Inj 100 / 100 100 ML @ 200 mls/hr IV.SIG Q24H [facility] Rx#:[id number] Oral 400 / 400 Other: Date of Last Bowel Movement 01/22/18 Narrative: Physical exam GENERAL: Well-developed and well-nourished in mild distress secondary to pain CARDIOVASCULAR: Regular rate and rhythm. RESPIRATORY: No accessory muscle use. Clear to auscultation. Breath sounds equal bilaterally. GASTROINTESTINAL: Abdomen soft, slightly tender epigastric area, nondistended. MUSCULOSKELETAL: Extremities without clubbing, cyanosis, or edema. No obvious deformities. AV fistula left upper extremity with thrill NEUROLOGICAL: Awake and alert. No obvious cranial nerve deficits. Motor grossly within normal limits. Five out of 5 muscle strength in the arms and legs. Normal speech. PSYCHIATRIC: Appropriate mood and affect; insight and judgment normal. Results - Labs CBC & Chem 7: 01/24/18 04:59 01/24/18 04:59 Laboratory Results - last 24 hr 01/23/18 01/23/18 01/24/18 11:46 17:45 04:59 WBC 9.8 RBC 3.99 L Hgb 10.1 L Hct 31.8 L MCV 79.6 L MCH 25.2 L MCHC 31.7 L RDW 16.5 Plt Count 342 MPV 8.8 Neut % (Auto) 77.6 H Lymph % (Auto) 13.6 [place] % (Auto) 4.8 Eos % (Auto) 3.6 Baso % (Auto) 0.4 Neut # (Auto) 7.6 Lymph # (Auto) 1.3 [place] # (Auto) 0.5 Eos # (Auto) 0.3 Baso # (Auto) 0.0 WBC Differential . Differential Comment Auto diff final Sodium Potassium Chloride Carbon Dioxide Anion Gap BUN Creatinine Estimated GFR POC Glucose 133 H 118 H Random Glucose Calcium Phosphorus Magnesium Total Bilirubin AST ALT Alkaline Phosphatase Total Protein Albumin TSH Free T4 01/24/18 01/24/18 04:59 07:41 WBC RBC Hgb Hct MCV MCH MCHC RDW Plt Count MPV Neut % (Auto) Lymph % (Auto) [place] % (Auto) Eos % (Auto) Baso % (Auto) Neut # (Auto) Lymph # (Auto) [place] # (Auto) Eos # (Auto) Baso # (Auto) WBC Differential Differential Comment Sodium 141 Potassium 4.9 Chloride 112 H Carbon Dioxide 21.9 Anion Gap 7 BUN 44 H Creatinine 3.11 H Estimated GFR 20 L POC Glucose 113 H Random Glucose 102 Calcium 8.3 L Phosphorus 4.0 Magnesium 2.3 Total Bilirubin 0.6 AST 29 ALT 50 Alkaline Phosphatase 107 Total Protein 7.6 Albumin 3.3 L TSH 3.330 Free T4 1.01 Microbiology 01/21/18 17:58 Clean Catch Urine Urine Culture - Final Escherichia coli ESBL positive - Imaging Chest X-Ray 01/21/18 12:19 CONCLUSION: Cardiomegaly with no acute cardiopulmonary disease. Abdomen/Pelvis CT 01/21/18 13:32 CONCLUSION: 1. Study is breathing motion degraded. 2. Tiny bilateral pleural effusions. 3. Cardiomegaly. 4. No acute abnormality to explain the patient's pain. 5. Nonobstructing right renal calculi. Myocardial Perfusion Scan Nuc Med 01/22/18 00:00 CONCLUSION: 1. Significant reduction in ejection fraction and global hypokinesis without any significant ischemia. - Procedures NONE Assessment and Plan - Plan This is a 67-year-old male who presents with epigastric discomfort, elevated troponin and abnormal EKG. ACS with history of coronary artery disease status post stent. Stat EKG interpreted by me shows sinus rhythm, mild ST elevation V3 to V5 with Q waves. Patient will be kept n.p.o. continue heparin drip and trend cardiac enzymes. Continue aspirin, Lopressor and statin. Start Nitropaste. Dw cardiology. Transfer patient to see IC. Mildly elevated lipase. Denies alcohol use. CT of the abdomen reveals no acute findings to explain abdominal pain. He reports sensation of food getting stuck in his chest. Start PPI and as needed Tums. Will consider consultation with GI after cardiac evaluation. Chronic kidney disease stage IV was on dialysis 2 years ago. He is nonoliguric. Continue gentle IV hydration. Avoid nephrotoxins. Patient aware he might need to be back on dialysis if he undergoes cardiac catheterization. Consultation with nephrology will be placed. UTI WITH ESBL POSITIVE E. COLI - CONSULT ID START ANTIBIOTICS INVANZ IV DAILY STRESS TEST NO ISCHEMIA BUT EF OF 25% RENAL INSUFFICIENCY - WILL GIVE SOME FLUIDS AM LABS Multiple medical conditions of hypertension, hyperlipidemia and diabetes mellitus. Continue outpatient medications as appropriate. Monitor fingersticks with sliding scale coverage. DVT prophylaxis patient OFF HEPARIN DRIP Code Status: FULL CODE Discussed Condition With: RN AND PT AND CM AND ID Discharge Planning: OK TO TRANSFER OFF FLOOR CONSULT ID
--- NOTE | 2018-01-24 11:20 | P.PNNP ---
Subjective Interval history: Creatinine is slightly worse today. On Rocephin and Ertapenem, UA showing ESBL positive UTI. He is reporting dysuria. Not in distress. <Natty Infante - Last Filed: 01/24/18 11:11> Physical Exam Vital signs: Vital Signs 01/23/18 12:00 01/23/18 13:00 01/23/18 14:00 Temperature 97.4 F L Pulse Rate 54 L 60 56 L Respiratory Rate 20 Blood Pressure 163/76 H Pulse Oximetry 95 01/23/18 15:00 01/23/18 16:00 01/23/18 17:00 Temperature 97.6 F Pulse Rate 56 L 60 62 Respiratory Rate 18 Blood Pressure 151/68 H Pulse Oximetry 96 01/23/18 18:00 01/23/18 20:00 01/23/18 20:55 Temperature 97.5 F L Pulse Rate 70 63 63 Respiratory Rate 18 Blood Pressure 149/71 H Pulse Oximetry 96 01/23/18 22:00 01/23/18 23:00 01/24/18 00:00 Temperature 97.8 F Pulse Rate 60 62 62 Respiratory Rate 18 Blood Pressure 147/56 H Pulse Oximetry 01/24/18 01:00 01/24/18 02:00 01/24/18 03:00 Temperature Pulse Rate 60 60 60 Respiratory Rate Blood Pressure Pulse Oximetry 01/24/18 04:00 01/24/18 05:00 01/24/18 06:00 Temperature 97.8 F Pulse Rate 53 L 60 60 Respiratory Rate 18 Blood Pressure 159/74 H Pulse Oximetry 01/24/18 07:00 01/24/18 08:00 Temperature 98.0 F Pulse Rate 55 L 60 Respiratory Rate 18 Blood Pressure 142/67 H Pulse Oximetry 95 Intake & Output 01/23/18 01/24/18 01/24/18 18:59 06:59 18:59 Intake Total 500 / 500 Balance 500 / 500 Weight 87.7 kg Intake: IV 100 / 100 Rocephin Inj 1,000 MG In NS Inj 100 / 100 100 ML @ 200 mls/hr IV.SIG Q24H [facility] Rx#:[id number] Oral 400 / 400 Other: Date of Last Bowel Movement 01/22/18 - Constitutional no acute distress, cooperative - Routine Neck Exam Present: supple, full ROM - Routine Respiratory Exam Present: CTA bilaterally. Absent: accessory muscle use - Routine Cardiovascular Exam Present: RRR, S1, S2. Absent: murmur - Routine Abdominal Exam Present: soft, normoactive bowel sounds, tenderness Comments: mid abdominal tenderness - Routine Extremities Exam Present: edema, full ROM, pulses intact, AV fistula. Absent: cyanosis, clubbing Comments: Left arm, + thrill/bruit. - Routine Skin Exam Present: intact, warm - Routine Neurological Exam Present: alert, oriented X3, CN II-XII intact - Detailed Neurological Exam: Coma Scale Eye Opening: Spontaneous Verbal Response: Oriented Motor Response: Obey commands [place] Coma Scale Total: 15 - Routine Psychiatric Exam Present: normal affect, normal thought process <Natty Infante - Last Filed: 01/24/18 11:11> Vital signs: Vital Signs 01/24/18 11:00 01/24/18 12:00 01/24/18 13:00 Temperature 97.5 F L Pulse Rate 58 L 56 L 54 L Respiratory Rate 18 Blood Pressure 148/69 H Pulse Oximetry 94 L 01/24/18 14:00 01/24/18 15:00 01/24/18 16:00 Temperature 97.9 F Pulse Rate 56 L 56 L 66 Respiratory Rate 18 Blood Pressure 155/64 H Pulse Oximetry 96 01/24/18 17:00 01/24/18 18:00 01/24/18 19:00 Temperature Pulse Rate 60 58 L 63 Respiratory Rate Blood Pressure Pulse Oximetry 01/24/18 20:00 01/24/18 21:00 01/24/18 21:39 Temperature 97.9 F Pulse Rate 63 58 L Respiratory Rate 16 Blood Pressure 157/75 H Pulse Oximetry 97 97 01/24/18 22:00 01/24/18 23:00 01/25/18 00:00 Temperature 97.6 F Pulse Rate 60 56 L 58 L Respiratory Rate 14 Blood Pressure 129/62 Pulse Oximetry 95 01/25/18 01:00 01/25/18 02:00 01/25/18 03:00 Temperature Pulse Rate 57 L 54 L 69 Respiratory Rate Blood Pressure Pulse Oximetry 01/25/18 03:46 01/25/18 04:00 01/25/18 05:00 Temperature 97.8 F Pulse Rate 58 L 55 L 58 L Respiratory Rate 16 Blood Pressure 139/71 Pulse Oximetry 95 01/25/18 06:00 01/25/18 07:00 01/25/18 08:00 Temperature 97.5 F L Pulse Rate 58 L 53 L 63 Respiratory Rate 18 Blood Pressure 153/70 H Pulse Oximetry 95 01/25/18 09:00 01/25/18 10:00 Temperature Pulse Rate 55 L 53 L Respiratory Rate Blood Pressure Pulse Oximetry Intake & Output 01/24/18 01/25/18 01/25/18 18:59 06:59 18:59 Intake Total 1400 / 1400 340 / 340 Balance 1400 / 1400 340 / 340 Weight 88.6 kg Intake: IV 100 / 100 INVanz Inj 1,000 MG In NS Inj 100 / 100 100 ML @ 200 mls/hr IV.SIG Q24H [facility] Rx#:[id number] Oral 1400 / 1400 240 / 240 Other: # Voids 6 2 <Ermias Yanes - Last Filed: 01/25/18 10:26> Assessment and Plan - Assessment (1) CKD (chronic kidney disease), stage IV Code(s): N18.4 - Chronic kidney disease, stage 4 (severe) Status: Acute Plan: His son reports a baseline CKD 4, GFR of 24-27. Imaging showed non obstructing renal stones Being treated for UTI Renal function is slightly worse today. Decline may be due to infection, NSTEMI , or possibly AIN from antibiotic administration. He is non oliguric. Stop IVF Repeat labs daily. Avoid nephrotoxins. Cleared for discharge from renal perspective. We will follow in CKD clinic. (2) Non-ST elevation (NSTEMI) myocardial infarction Code(s): I21.4 - Non-ST elevation (NSTEMI) myocardial infarction Status: Acute Plan: Cardiology has evaluated. Echo reviewed, EF 20%. Off heparin gtt; on statin and ASA Serial troponin, may need stress test. (3) ESBL (extended spectrum beta-lactamase) producing bacteria infection Code(s): A49.9 - Bacterial infection, unspecified; Z16.12 - Extended spectrum beta lactamase (ESBL) resistance Status: Acute Plan: UTI, ID was consulted On Rocephin (consider stopping), also on Ertapenem <Natty Infante - Last Filed: 01/24/18 11:11> - Assessment (1) CKD (chronic kidney disease), stage IV Code(s): N18.4 - Chronic kidney disease, stage 4 (severe) Status: Acute (2) Non-ST elevation (NSTEMI) myocardial infarction Code(s): I21.4 - Non-ST elevation (NSTEMI) myocardial infarction Status: Acute (3) ESBL (extended spectrum beta-lactamase) producing bacteria infection Code(s): A49.9 - Bacterial infection, unspecified; Z16.12 - Extended spectrum beta lactamase (ESBL) resistance Status: Acute - Attending Attestation patient was seen and examined. Agree with above assessment and plan. Outpatient followup. <Ermias Yanes - Last Filed: 01/25/18 10:26>
--- NOTE | 2018-01-24 11:52 | MB ---
cc: Abbe Mendieta MD DATE: 01/24/2018 REQUESTING PHYSICIAN: Dr. Birch REASON FOR VISIT: Extended-spectrum beta-lactamase Escherichia coli urinary tract infection. HISTORY OF PRESENT ILLNESS: This is a 67-year-old [place]er male who presented to the emergency department with chest discomfort. The patient was evaluated and admitted to the hospital and he underwent cardiology workup. He underwent myocardial perfusion scanning which showed ejection fraction of 25% and also global hypokinesis without any significant ischemia. The patient had a urinalysis that revealed a large amount of leukocyte esterase and innumerable white cells. The urine was cloudy. Urine culture was performed and it came back showing ESBL Escherichia coli. The patient denies chills or fever. He notes to me that he has had frequent urination. He has a history of non functional right kidney and at he was on dialysis 2 years ago. He had an AV fistula placed about a year ago, but it has never been used. He is followed up for the kidney problems. He has been afebrile since admission. The patient notes to me that when he eats, it feels like food gets stuck in the mid epigastric area and also when he drinks cold liquids, it feels like it gets stuck as well and is very slow to move down into his gastrointestinal tract. He reports to me that he had a urinary tract infection when he had a kidney stone 2 years ago. PAST MEDICAL HISTORY: Hypertension, hyperlipidemia, diabetes mellitus, AV fistula in the left upper extremity. Coronary artery disease with stent placement. Non functioning r. kidney. PAST SURGICAL HISTORY: History of appendectomy, history of cholecystectomy. ALLERGIES: NO KNOWN DRUG ALLERGIES. MEDICATIONS: 1. Ceftriaxone. 2. Ertapenem. 3. Mucinex. 4. Insulin. 5. Imdur. 6. Lactinex. 7. Lactulose. 8. Lopressor. 9. Protonix. 10. Pravachol. 11. Shaina-Colace. SOCIAL HISTORY: No tobacco, no alcohol. Denies illicit drugs. The patient moved to [place] from [place] 2 months ago to be with family. REVIEW OF SYSTEMS: Significant for mild dyspnea with exertion. Otherwise, review of systems is negative except for that mentioned in the history of present illness. PHYSICAL EXAMINATION: GENERAL: This is a well-developed male who is awake and alert. He is in no acute distress. VITAL SIGNS: Temperature 98.0, BP 142/67, respirations 18, heart rate 60. HEENT: Head is atraumatic. Extraocular movements are grossly intact. Pupils reactive to light. No icterus. No conjunctival erythema. Oropharynx moist mucosa. No thrush. NECK: Supple without adenopathy. LUNGS: Clear breath sounds bilaterally. HEART: Regular S1, S2. No audible murmurs, rubs or gallops. ABDOMEN: Protuberant, soft, positive bowel sounds, which are hypoactive. No palpable mass. No tenderness. RECTAL: Not performed. EXTREMITIES: No clubbing, cyanosis or edema. The patient has an AV fistula in the left antecubital area, which has a very strong bruit. SKIN: No diffuse rash. NEUROLOGIC: No gross focal findings. PSYCHIATRIC: The patient is calm and cooperative and mood appears normal. LABORATORY DATA: WBC 9.8, platelets 342, 77% neutrophils, 13% lymphocytes, 4% monocytes. Creatinine 3.11, BUN 44, estimated GFR 20, sodium 141. Liver function test normal. IMPRESSION: 1. Complicated urinary tract infection due to extended-spectrum [id number] Escherichia coli in a patient with history of nephrectomy. 2. Chronic kidney disease. RECOMMENDATIONS: 1. Continue ertapenem. 2. Discontinue ceftriaxone. 3. Repeat urine culture in a couple of days to check for clearance of the bacteria 4. Monitor clinical status and response to the antibiotic treatment. Thank you for this consultation. I will follow the patient's progress and make further recommendations upon followup. MD LUDWIG Howell/GARRISON , 11:23 AM , 11:37 AM JULIUS
[2018-01-24 15:56] LABS: Hemoglobin A1c 6.4 % (4.3-6.0)
[2018-01-25] MEDS: Isosorbide Mononitrate 60 MG ER 24HR Tablet (Imdur) PO SCH (06:12)
[2018-01-25 06:51] LABS: Baso % (Auto) 0.5 % (0.0-2.0); Eos # (Auto) 0.5 th/mm3 (0.0-0.4); Eos % (Auto) 5.3 % (0.0-4.0); Hematocrit 31.9 % (39.0-51.0); Lymph # (Auto) 1.9 th/mm3 (1.0-4.8); Lymph % (Auto) 21.7 % (9.0-44.0); Mean Corpuscular HGB Conc 31.3 % (32.0-36.0); Mean Corpuscular Hemoglobin 24.8 pg (27.0-34.0); Mean Corpuscular Volume 79.3 fL (80.0-100.0); Mean Platelet Volume 8.2 fL (7.0-11.0); Mono # (Auto) 0.6 th/mm3 (0.0-0.9); Neut # (Auto) 5.7 th/mm3 (1.8-7.7); Neut % (Auto) 65.5 % (16.0-70.0); Platelet Count 352 th/mm3 (150-450); Red Blood Count 4.03 mil/mm3 (4.50-5.90); Red Cell Distribution Width 16.8 % (11.6-17.2); White Blood Count 8.8 th/mm3 (4.0-11.0)
[2018-01-25 07:14] LABS: Alanine Aminotransferase 45 U/L (12-78); Albumin 3.3 g/dL (3.4-5.0); Anion Gap 9 meq/L (5-15); Aspartate Aminotransferase 20 U/L (15-37); Blood Urea Nitrogen 40 mg/dL (7-18); Calcium 8.5 mg/dL (8.5-10.1); Carbon Dioxide 19.8 meq/L (21.0-32.0); Chloride 110 meq/L (98-107); Glomerular Filtration Rate 21 mL/min (>89); Glucose,Random 89 mg/dL (74-106); Magnesium 2.2 mg/dL (1.5-2.5); Potassium 4.7 meq/L (3.5-5.1); Sodium 139 meq/L (136-145)
[2018-01-25 07:17] LABS: Alkaline Phosphatase 105 U/L (45-117); Total Protein 7.7 g/dL (6.4-8.2)
[2018-01-25] MEDS: Insulin NovoLOG Aspart Correctional Sugar Inj SQ SCH ×3 (08:33→18:09)
[2018-01-25] MEDS: Lactobacillus Acidophilus/L. Spores Tablet PO SCH ×3 (08:42→18:59)
[2018-01-25] MEDS: amLODIPine 10 MG Tablet PO SCH (08:43)
[2018-01-25] MEDS: guaiFENesin 600 MG ER Tablet PO SCH (08:43)
[2018-01-25] MEDS: Metoprolol Tartrate 50 MG Tablet PO SCH (08:43)
[2018-01-25] MEDS: Senna/Docusate Sodium 8.6/50 MG Tablet PO SCH (08:43)
--- NOTE | 2018-01-25 10:05 | P.PNNP ---
Subjective Interval history: Resting quietly. Renal function is slightly better. Afebrile. <Natty Infante - Last Filed: 01/25/18 09:59> Physical Exam Vital signs: Vital Signs 01/24/18 10:00 01/24/18 11:00 01/24/18 12:00 Temperature 97.5 F L Pulse Rate 58 L 58 L 56 L Respiratory Rate 18 Blood Pressure 148/69 H Pulse Oximetry 94 L 01/24/18 13:00 01/24/18 14:00 01/24/18 15:00 Temperature Pulse Rate 54 L 56 L 56 L Respiratory Rate Blood Pressure Pulse Oximetry 01/24/18 16:00 01/24/18 17:00 01/24/18 18:00 Temperature 97.9 F Pulse Rate 66 60 58 L Respiratory Rate 18 Blood Pressure 155/64 H Pulse Oximetry 96 01/24/18 19:00 01/24/18 20:00 01/24/18 21:00 Temperature 97.9 F Pulse Rate 63 63 58 L Respiratory Rate 16 Blood Pressure 157/75 H Pulse Oximetry 97 01/24/18 21:39 01/24/18 22:00 01/24/18 23:00 Temperature Pulse Rate 60 56 L Respiratory Rate Blood Pressure Pulse Oximetry 97 01/25/18 00:00 01/25/18 01:00 01/25/18 02:00 Temperature 97.6 F Pulse Rate 58 L 57 L 54 L Respiratory Rate 14 Blood Pressure 129/62 Pulse Oximetry 95 01/25/18 03:00 01/25/18 03:46 01/25/18 04:00 Temperature 97.8 F Pulse Rate 69 58 L 55 L Respiratory Rate 16 Blood Pressure 139/71 Pulse Oximetry 95 01/25/18 05:00 01/25/18 06:00 Temperature Pulse Rate 58 L 58 L Respiratory Rate Blood Pressure Pulse Oximetry Intake & Output 01/24/18 01/25/18 01/25/18 18:59 06:59 18:59 Intake Total 1400 / 1400 340 / 340 Balance 1400 / 1400 340 / 340 Weight 88.6 kg Intake: IV 100 / 100 INVanz Inj 1,000 MG In NS Inj 100 / 100 100 ML @ 200 mls/hr IV.SIG Q24H [facility] Rx#:[id number] Oral 1400 / 1400 240 / 240 Other: # Voids 6 2 - Constitutional no acute distress, cooperative - Routine HEENT Exam Head: Present: normocephalic Eye: Present: EOMI - Routine Neck Exam Present: supple, full ROM. Absent: JVD - Routine Respiratory Exam Present: CTA bilaterally. Absent: accessory muscle use - Routine Cardiovascular Exam Present: RRR, S1, S2 - Routine Abdominal Exam Present: soft, normoactive bowel sounds - Routine Skin Exam Present: intact, dry, warm - Routine Neurological Exam Present: alert, oriented X3, CN II-XII intact, moving all extremities - Detailed Neurological Exam: Coma Scale Eye Opening: Spontaneous Verbal Response: Oriented Motor Response: Obey commands [place] Coma Scale Total: 15 - Routine Psychiatric Exam Present: normal affect, normal thought process <Natty Infante - Last Filed: 01/25/18 09:59> Vital signs: Vital Signs 01/25/18 09:00 01/25/18 10:00 01/25/18 10:28 Temperature Pulse Rate 55 L 53 L Respiratory Rate Blood Pressure Pulse Oximetry 96 01/25/18 11:00 01/25/18 12:00 01/25/18 13:00 Temperature 97.8 F Pulse Rate 56 L 57 L 58 L Respiratory Rate 18 Blood Pressure 146/67 H Pulse Oximetry 98 01/25/18 14:00 01/25/18 15:00 01/25/18 16:00 Temperature 97.8 F Pulse Rate 53 L 58 L 60 Respiratory Rate 18 Blood Pressure 146/67 H Pulse Oximetry 98 01/25/18 17:00 01/25/18 18:00 01/25/18 19:00 Temperature Pulse Rate 65 56 L 60 Respiratory Rate Blood Pressure Pulse Oximetry 01/25/18 20:00 01/25/18 21:00 01/25/18 22:00 Temperature Pulse Rate 58 L 54 L 56 L Respiratory Rate 16 Blood Pressure 151/76 H Pulse Oximetry 95 01/25/18 23:00 01/26/18 00:00 01/26/18 01:00 Temperature 98.1 F Pulse Rate 60 63 59 L Respiratory Rate 18 Blood Pressure 159/74 H Pulse Oximetry 96 01/26/18 02:00 01/26/18 03:00 01/26/18 04:00 Temperature 98.2 F Pulse Rate 54 L 56 L 54 L Respiratory Rate 18 Blood Pressure 138/68 Pulse Oximetry 95 01/26/18 07:00 Temperature Pulse Rate 55 L Respiratory Rate Blood Pressure Pulse Oximetry Intake & Output 01/25/18 01/26/18 01/26/18 18:59 06:59 18:59 Intake Total 1680 / 1680 100 / 100 Balance 1680 / 1680 100 / 100 Weight 66.2 kg Intake: IV 100 / 100 INVanz Inj 1,000 MG In NS Inj 100 / 100 100 ML @ 200 mls/hr IV.SIG Q24H [facility] Rx#:[id number] Oral 1680 / 1680 Other: # Voids 4 # Bowel Movements 1 <Ermias Yanes - Last Filed: 01/26/18 08:14> Assessment and Plan - Assessment (1) CKD (chronic kidney disease), stage IV Code(s): N18.4 - Chronic kidney disease, stage 4 (severe) Status: Acute Plan: His son reports a baseline CKD 4, GFR of 24-27. He has hx of and current renal caliculi. Renal function is slightly better today. Being treated for UTI. Currently non oliguric. Off IVF, PO encouraged. Repeat labs daily. Avoid nephrotoxins. Cleared for discharge from renal perspective. We will follow in CKD clinic. (2) Non-ST elevation (NSTEMI) myocardial infarction Code(s): I21.4 - Non-ST elevation (NSTEMI) myocardial infarction Status: Acute Plan: Cardiology has evaluated. Echo reviewed, EF 20%. on nitrate (Imdur), BB, statin, and ASA s/p stress test, no ischemia (3) ESBL (extended spectrum beta-lactamase) producing bacteria infection Code(s): A49.9 - Bacterial infection, unspecified; Z16.12 - Extended spectrum beta lactamase (ESBL) resistance Status: Acute Plan: UTI, ID has evaluated On Ertapenem, Rocephin was stopped. Repeat urine culture. Monitor clinically. <Natty Infante - Last Filed: 01/25/18 09:59> - Assessment (1) CKD (chronic kidney disease), stage IV Code(s): N18.4 - Chronic kidney disease, stage 4 (severe) Status: Acute (2) Non-ST elevation (NSTEMI) myocardial infarction Code(s): I21.4 - Non-ST elevation (NSTEMI) myocardial infarction Status: Acute - Attending Attestation patient was seen and examined. Agree with above assessment and plan. He can be discharged from renal standpoint. We will followup in CKD clinic. <Ermias Yanes - Last Filed: 01/26/18 08:14>
--- NOTE | 2018-01-25 16:24 | P.PNIM ---
Subjective Interval history: This is a 67-year-old male with a history of hypertension, hyperlipidemia, diabetes mellitus and coronary artery disease status post stent 2 years ago. He presents to the emergency department complaining of epigastric pressure discomfort which started 4 days ago. It is an intermittent exertional pain without radiation and not associated with shortness of breath, nausea, palpitations and dizziness. It is relieved with sublingual nitroglycerin but got worse last night prompting ER evaluation. EKG reportedly unremarkable per ER physician (unable to review). Troponin 0.3 and was started on heparin drip. Took aspirin today. Lipase is also slightly elevated at [address] of the abdomen pelvis reveals no acute findings to explain abdominal pain. Patient does report of sensation of food getting stuck in his chest but denies pain after eating. Does not recall having EGD. He also has history of chronic kidney disease stage IV was on dialysis 2 years ago. He is nonoliguric. All other systems reviewed negative 7 Patient is in the chair does not appear in acute distress at this time however he complains of chest pain intermittent. Also complains of epigastric pain. Patient has diabetes he might also have gastroparesis. Consider GI series series and consider GI consult if no improvement. Patient can also follow up as OP with GI. However he recently moved in this area and doesn't have established care here. Plan for stress test in the afternoon today. 01-23 NOTED TO BE ESBL POSITIVE FOR UTI WILL START MEDS AND CONSULT ID--START INVANZ AM LABS OK TO MOVE OFF OF CIC NOT CLEARED FOR DC DW RN AND PT AND FAMILY AND CM STRESS TEST NO ISCHEMIA BUT EF OF ONLY 25% START INVANZ 01-24 YANIQUE RN AND PT AND CM AND ID RENAL INSUFFICIENCY TODAY AM LABS START GENTLE FLUID REHYDRATION NEEDS PT AND OT 01-25 MEDICATIONS ADJUSTED BY RENAL AND ID ON INVANZ NOT CLEARED BY THEM FOR DC YET OK TO TRANSFER OFF FLOOR NO NEW COMPLAINTS AM LABS Physical Exam Vital signs: Vital Signs 01/24/18 17:00 01/24/18 18:00 01/24/18 19:00 Temperature Pulse Rate 60 58 L 63 Respiratory Rate Blood Pressure Pulse Oximetry 01/24/18 20:00 01/24/18 21:00 01/24/18 21:39 Temperature 97.9 F Pulse Rate 63 58 L Respiratory Rate 16 Blood Pressure 157/75 H Pulse Oximetry 97 97 01/24/18 22:00 01/24/18 23:00 01/25/18 00:00 Temperature 97.6 F Pulse Rate 60 56 L 58 L Respiratory Rate 14 Blood Pressure 129/62 Pulse Oximetry 95 01/25/18 01:00 01/25/18 02:00 01/25/18 03:00 Temperature Pulse Rate 57 L 54 L 69 Respiratory Rate Blood Pressure Pulse Oximetry 01/25/18 03:46 01/25/18 04:00 01/25/18 05:00 Temperature 97.8 F Pulse Rate 58 L 55 L 58 L Respiratory Rate 16 Blood Pressure 139/71 Pulse Oximetry 95 01/25/18 06:00 01/25/18 07:00 01/25/18 08:00 Temperature 97.5 F L Pulse Rate 58 L 53 L 63 Respiratory Rate 18 Blood Pressure 153/70 H Pulse Oximetry 95 01/25/18 09:00 01/25/18 10:00 01/25/18 10:28 Temperature Pulse Rate 55 L 53 L Respiratory Rate Blood Pressure Pulse Oximetry 96 01/25/18 11:00 01/25/18 12:00 01/25/18 13:00 Temperature 97.8 F Pulse Rate 56 L 57 L 58 L Respiratory Rate 18 Blood Pressure 146/67 H Pulse Oximetry 98 01/25/18 14:00 Temperature Pulse Rate 53 L Respiratory Rate Blood Pressure Pulse Oximetry Intake & Output 01/24/18 01/25/18 01/25/18 18:59 06:59 18:59 Intake Total 1400 / 1400 340 / 340 Balance 1400 / 1400 340 / 340 Weight 88.6 kg Intake: IV 100 / 100 INVanz Inj 1,000 MG In NS Inj 100 / 100 100 ML @ 200 mls/hr IV.SIG Q24H [facility] Rx#:[id number] Oral 1400 / 1400 240 / 240 Other: # Voids 6 2 Narrative: Physical exam GENERAL: Well-developed and well-nourished in mild distress secondary to pain CARDIOVASCULAR: Regular rate and rhythm. S1, S2 NO S3 OR S4 RESPIRATORY: No accessory muscle use. Clear to auscultation. Breath sounds equal bilaterally. GASTROINTESTINAL: Abdomen soft, slightly tender epigastric area, nondistended. MUSCULOSKELETAL: Extremities without clubbing, cyanosis, or edema. No obvious deformities. AV fistula left upper extremity with thrill NEUROLOGICAL: Awake and alert. No obvious cranial nerve deficits. Motor grossly within normal limits. Five out of 5 muscle strength in the arms and legs. Normal speech. PSYCHIATRIC: Appropriate mood and affect; insight and judgment normal. Results - Labs CBC & Chem 7: 01/25/18 06:07 01/25/18 06:07 Laboratory Results - last 24 hr 01/24/18 01/24/18 01/24/18 04:59 17:22 19:50 WBC RBC Hgb Hct MCV MCH MCHC RDW Plt Count MPV Neut % (Auto) Lymph % (Auto) [place] % (Auto) Eos % (Auto) Baso % (Auto) Neut # (Auto) Lymph # (Auto) [place] # (Auto) Eos # (Auto) Baso # (Auto) WBC Differential Differential Comment Sodium Potassium Chloride Carbon Dioxide Anion Gap BUN Creatinine Estimated GFR POC Glucose 149 H 120 H Random Glucose Hemoglobin A1c 6.4 H Calcium Phosphorus Magnesium Total Bilirubin AST ALT Alkaline Phosphatase Total Protein Albumin 01/25/18 01/25/18 06:07 06:07 WBC 8.8 RBC 4.03 L Hgb 10.0 L Hct 31.9 L MCV 79.3 L MCH 24.8 L MCHC 31.3 L RDW 16.8 Plt Count 352 MPV 8.2 Neut % (Auto) 65.5 Lymph % (Auto) 21.7 [place] % (Auto) 7.0 Eos % (Auto) 5.3 H Baso % (Auto) 0.5 Neut # (Auto) 5.7 Lymph # (Auto) 1.9 [place] # (Auto) 0.6 Eos # (Auto) 0.5 H Baso # (Auto) 0.0 WBC Differential . Differential Comment Auto diff final Sodium 139 Potassium 4.7 Chloride 110 H Carbon Dioxide 19.8 L Anion Gap 9 BUN 40 H Creatinine 3.01 H Estimated GFR 21 L POC Glucose Random Glucose 89 Hemoglobin A1c Calcium 8.5 Phosphorus 4.0 Magnesium 2.2 Total Bilirubin 0.8 AST 20 ALT 45 Alkaline Phosphatase 105 Total Protein 7.7 Albumin 3.3 L Microbiology 01/24/18 15:16 Clean Catch Urine Urine Culture - Preliminary No growth in 24 hours - Imaging Chest X-Ray 01/21/18 12:19 CONCLUSION: Cardiomegaly with no acute cardiopulmonary disease. Abdomen/Pelvis CT 01/21/18 13:32 CONCLUSION: 1. Study is breathing motion degraded. 2. Tiny bilateral pleural effusions. 3. Cardiomegaly. 4. No acute abnormality to explain the patient's pain. 5. Nonobstructing right renal calculi. Myocardial Perfusion Scan Nuc Med 01/22/18 00:00 CONCLUSION: 1. Significant reduction in ejection fraction and global hypokinesis without any significant ischemia. - Procedures NONE Assessment and Plan - Plan This is a 67-year-old male who presents with epigastric discomfort, elevated troponin and abnormal EKG. ACS with history of coronary artery disease status post stent. Stat EKG interpreted by me shows sinus rhythm, mild ST elevation V3 to V5 with Q waves. Patient will be kept n.p.o. continue heparin drip and trend cardiac enzymes. Continue aspirin, Lopressor and statin. Start Nitropaste. Dw cardiology. Transfer patient to see IC. Mildly elevated lipase. Denies alcohol use. CT of the abdomen reveals no acute findings to explain abdominal pain. He reports sensation of food getting stuck in his chest. Start PPI and as needed Tums. Will consider consultation with GI after cardiac evaluation. Chronic kidney disease stage IV was on dialysis 2 years ago. He is nonoliguric. Continue gentle IV hydration. Avoid nephrotoxins. Patient aware he might need to be back on dialysis if he undergoes cardiac catheterization. Consultation with nephrology will be placed. UTI WITH ESBL POSITIVE E. COLI - CONSULT ID START ANTIBIOTICS INVANZ IV DAILY STRESS TEST NO ISCHEMIA BUT EF OF 25% RENAL INSUFFICIENCY - WILL GIVE SOME FLUIDS AM LABS Multiple medical conditions of hypertension, hyperlipidemia and diabetes mellitus. Continue outpatient medications as appropriate. Monitor fingersticks with sliding scale coverage. DVT prophylaxis patient OFF HEPARIN DRIP Code Status: FULL CODE Discussed Condition With: RN AND PT AND CASE MANAGEMENT Discharge Planning: OK TO TRANSFER OFF FLOOR CONSULT ID
[2018-01-26] MEDS: guaiFENesin 600 MG ER Tablet PO SCH ×3 (00:27→21:03)
[2018-01-26] MEDS: Metoprolol Tartrate 50 MG Tablet PO SCH ×3 (00:27→21:00)
[2018-01-26] MEDS: Insulin NovoLOG Aspart Correctional Sugar Inj SQ SCH ×7 (00:32→21:05)
[2018-01-26] MEDS: Senna/Docusate Sodium 8.6/50 MG Tablet PO SCH ×3 (04:40→21:01)
[2018-01-26 06:21] LABS: Baso # (Auto) 0.1 th/mm3 (0.0-0.2); Baso % (Auto) 0.9 % (0.0-2.0); Eos # (Auto) 0.4 th/mm3 (0.0-0.4); Eos % (Auto) 4.7 % (0.0-4.0); Hematocrit 31.5 % (39.0-51.0); Lymph # (Auto) 1.9 th/mm3 (1.0-4.8); Lymph % (Auto) 20.7 % (9.0-44.0); Mean Corpuscular HGB Conc 31.8 % (32.0-36.0); Mean Corpuscular Hemoglobin 25.1 pg (27.0-34.0); Mean Platelet Volume 8.5 fL (7.0-11.0); Mono # (Auto) 0.6 th/mm3 (0.0-0.9); Mono % (Auto) 6.5 % (0.0-8.0); Neut # (Auto) 6.1 th/mm3 (1.8-7.7); Neut % (Auto) 67.2 % (16.0-70.0); Platelet Count 362 th/mm3 (150-450); Red Blood Count 3.98 mil/mm3 (4.50-5.90); Red Cell Distribution Width 16.8 % (11.6-17.2); White Blood Count 9.1 th/mm3 (4.0-11.0)
[2018-01-26 06:45] LABS: Albumin 3.3 g/dL (3.4-5.0); Anion Gap 8 meq/L (5-15); Aspartate Aminotransferase 18 U/L (15-37); Calcium 8.6 mg/dL (8.5-10.1); Carbon Dioxide 21.1 meq/L (21.0-32.0); Chloride 110 meq/L (98-107); Glomerular Filtration Rate 22 mL/min (>89); Glucose,Random 94 mg/dL (74-106); Magnesium 2.2 mg/dL (1.5-2.5); Potassium 4.6 meq/L (3.5-5.1); Sodium 139 meq/L (136-145)
[2018-01-26 06:53] LABS: Alanine Aminotransferase 40 U/L (12-78); Alkaline Phosphatase 104 U/L (45-117); Blood Urea Nitrogen 43 mg/dL (7-18); Total Protein 7.7 g/dL (6.4-8.2)
[2018-01-26] MEDS: Sod Chloride 0.9% Inj 1,000 ML IV.CONT SCH (07:58)
--- NOTE | 2018-01-26 09:00 | P.PNNP ---
Subjective Interval history: No new issues. Afebrile. Renal function has been improving. He reports that in [place] he was told that his right kidney is not functioning. I do not have documentation to say whether this is accurate. It should be noted that patient has not had nephrectomy. Physical Exam Vital signs: Vital Signs 01/25/18 09:00 01/25/18 10:00 01/25/18 10:28 Temperature Pulse Rate 55 L 53 L Respiratory Rate Blood Pressure Pulse Oximetry 96 01/25/18 11:00 01/25/18 12:00 01/25/18 13:00 Temperature 97.8 F Pulse Rate 56 L 57 L 58 L Respiratory Rate 18 Blood Pressure 146/67 H Pulse Oximetry 98 01/25/18 14:00 01/25/18 15:00 01/25/18 16:00 Temperature 97.8 F Pulse Rate 53 L 58 L 60 Respiratory Rate 18 Blood Pressure 146/67 H Pulse Oximetry 98 01/25/18 17:00 01/25/18 18:00 01/25/18 19:00 Temperature Pulse Rate 65 56 L 60 Respiratory Rate Blood Pressure Pulse Oximetry 01/25/18 20:00 01/25/18 21:00 01/25/18 22:00 Temperature Pulse Rate 58 L 54 L 56 L Respiratory Rate 16 Blood Pressure 151/76 H Pulse Oximetry 95 01/25/18 23:00 01/26/18 00:00 01/26/18 01:00 Temperature 98.1 F Pulse Rate 60 63 59 L Respiratory Rate 18 Blood Pressure 159/74 H Pulse Oximetry 96 01/26/18 02:00 01/26/18 03:00 01/26/18 04:00 Temperature 98.2 F Pulse Rate 54 L 56 L 54 L Respiratory Rate 18 Blood Pressure 138/68 Pulse Oximetry 95 01/26/18 07:00 Temperature Pulse Rate 55 L Respiratory Rate Blood Pressure Pulse Oximetry Intake & Output 01/25/18 01/26/18 01/26/18 18:59 06:59 18:59 Intake Total 1680 / 1680 100 / 100 Balance 1680 / 1680 100 / 100 Weight 66.2 kg Intake: IV 100 / 100 INVanz Inj 1,000 MG In NS Inj 100 / 100 100 ML @ 200 mls/hr IV.SIG Q24H [facility] Rx#:[id number] Oral 1679 / 1679 Other: # Voids 4 # Bowel Movements 1 - Constitutional no acute distress - Routine HEENT Exam Head: Present: normocephalic ENT: Present: mucous membranes moist - Routine Neck Exam Present: supple. Absent: JVD, carotid bruit, lymphadenopathy - Routine Respiratory Exam Present: CTA bilaterally. Absent: wheezes, crackles - Routine Cardiovascular Exam Present: RRR, S1, S2 - Routine Abdominal Exam Present: soft, normoactive bowel sounds - Routine Extremities Exam Present: full ROM - Routine Skin Exam Present: intact - Routine Neurological Exam Present: alert, oriented X3, CN II-XII intact. Absent: facial asymmetry - Routine Psychiatric Exam Present: normal affect, normal thought process Assessment and Plan - Assessment (1) CKD (chronic kidney disease), stage IV Code(s): N18.4 - Chronic kidney disease, stage 4 (severe) Status: Acute Plan: Renal function is at baseline. Imaging shows non obstructing renal stones. He has a history of the same. Dialysis is not required at this time. Avoid nephrotoxins. Patient can be discharged from renal standpoint. (2) Non-ST elevation (NSTEMI) myocardial infarction Code(s): I21.4 - Non-ST elevation (NSTEMI) myocardial infarction Status: Acute Plan: EF of 25%, no reversible ischemia. - Plan He is cleared for discharge from renal perspective.
[2018-01-26] MEDS: Isosorbide Mononitrate 60 MG ER 24HR Tablet (Imdur) PO SCH (09:24)
[2018-01-26] MEDS: Lactobacillus Acidophilus/L. Spores Tablet PO SCH ×3 (09:25→17:36)
[2018-01-26] MEDS: amLODIPine 10 MG Tablet PO SCH (09:25)
--- NOTE | 2018-01-26 15:38 | P.PNIM ---
Subjective Interval history: This is a 67-year-old male with a history of hypertension, hyperlipidemia, diabetes mellitus and coronary artery disease status post stent 2 years ago. He presents to the emergency department complaining of epigastric pressure discomfort which started 4 days ago. It is an intermittent exertional pain without radiation and not associated with shortness of breath, nausea, palpitations and dizziness. It is relieved with sublingual nitroglycerin but got worse last night prompting ER evaluation. EKG reportedly unremarkable per ER physician (unable to review). Troponin 0.3 and was started on heparin drip. Took aspirin today. Lipase is also slightly elevated at [address] of the abdomen pelvis reveals no acute findings to explain abdominal pain. Patient does report of sensation of food getting stuck in his chest but denies pain after eating. Does not recall having EGD. He also has history of chronic kidney disease stage IV was on dialysis 2 years ago. He is nonoliguric. All other systems reviewed negative 7 Patient is in the chair does not appear in acute distress at this time however he complains of chest pain intermittent. Also complains of epigastric pain. Patient has diabetes he might also have gastroparesis. Consider GI series series and consider GI consult if no improvement. Patient can also follow up as OP with GI. However he recently moved in this area and doesn't have established care here. Plan for stress test in the afternoon today. 01-23 NOTED TO BE ESBL POSITIVE FOR UTI WILL START MEDS AND CONSULT ID--START INVANZ AM LABS OK TO MOVE OFF OF CIC NOT CLEARED FOR DC DW RN AND PT AND FAMILY AND CM STRESS TEST NO ISCHEMIA BUT EF OF ONLY 25% START INVANZ 01-24 DW RN AND PT AND CM AND ID RENAL INSUFFICIENCY TODAY AM LABS START GENTLE FLUID REHYDRATION NEEDS PT AND OT 01-25 MEDICATIONS ADJUSTED BY RENAL AND ID ON INVANZ NOT CLEARED BY THEM FOR DC YET OK TO TRANSFER OFF FLOOR NO NEW COMPLAINTS AM LABS 8- ON INVANZ NOT CLEARED BY ID FOR DC YET NO NEW COMPLAINTS CLEARED BY CARDIO AND RENAL AM LABS Physical Exam Vital signs: Vital Signs 01/25/18 16:00 01/25/18 17:00 01/25/18 18:00 Temperature 97.8 F Pulse Rate 60 65 56 L Respiratory Rate 18 Blood Pressure 146/67 H Pulse Oximetry 98 01/25/18 19:00 01/25/18 20:00 01/25/18 21:00 Temperature Pulse Rate 60 58 L 54 L Respiratory Rate 16 Blood Pressure 151/76 H Pulse Oximetry 95 01/25/18 22:00 01/25/18 23:00 01/26/18 00:00 Temperature 98.1 F Pulse Rate 56 L 60 63 Respiratory Rate 18 Blood Pressure 159/74 H Pulse Oximetry 96 01/26/18 01:00 01/26/18 02:00 01/26/18 03:00 Temperature Pulse Rate 59 L 54 L 56 L Respiratory Rate Blood Pressure Pulse Oximetry 01/26/18 04:00 01/26/18 07:00 01/26/18 08:00 Temperature 98.2 F 97.8 F Pulse Rate 54 L 55 L 54 L Respiratory Rate 18 18 Blood Pressure 138/68 167/78 H Pulse Oximetry 95 95 01/26/18 09:00 01/26/18 10:00 01/26/18 11:00 Temperature Pulse Rate 60 55 L 55 L Respiratory Rate Blood Pressure Pulse Oximetry 01/26/18 11:02 01/26/18 12:00 01/26/18 13:00 Temperature 98 F Pulse Rate 56 L 58 L Respiratory Rate 16 Blood Pressure 153/71 H Pulse Oximetry 91 L 96 01/26/18 14:00 01/26/18 15:00 Temperature Pulse Rate 60 58 L Respiratory Rate Blood Pressure Pulse Oximetry Intake & Output 01/25/18 01/26/18 01/26/18 18:59 06:59 18:59 Intake Total 1680 / 1680 100 / 100 Balance 1680 / 1680 100 / 100 Weight 66.2 kg Intake: IV 100 / 100 INVanz Inj 1,000 MG In NS Inj 100 / 100 100 ML @ 200 mls/hr IV.SIG Q24H [facility] Rx#:[id number] Oral 1680 / 1680 Other: # Voids 4 Date of Last Bowel Movement 01/22/18 # Bowel Movements 1 Narrative: Physical exam GENERAL: Well-developed and well-nourished in mild distress secondary to pain CARDIOVASCULAR: Regular rate and rhythm. S1, S2 NO S3 OR S4 RESPIRATORY: No accessory muscle use. Clear to auscultation. Breath sounds equal bilaterally. GASTROINTESTINAL: Abdomen soft, slightly tender epigastric area, nondistended. MUSCULOSKELETAL: Extremities without clubbing, cyanosis, or edema. No obvious deformities. AV fistula left upper extremity with thrill NEUROLOGICAL: Awake and alert. No obvious cranial nerve deficits. Motor grossly within normal limits. Five out of 5 muscle strength in the arms and legs. Normal speech. PSYCHIATRIC: Appropriate mood and affect; insight and judgment normal. Results - Labs CBC & Chem 7: 01/26/18 05:01 01/26/18 05:01 Laboratory Results - last 24 hr 01/26/18 01/26/18 05:01 05:01 WBC 9.1 RBC 3.98 L Hgb 10.0 L Hct 31.5 L MCV 79.0 L MCH 25.1 L MCHC 31.8 L RDW 16.8 Plt Count 362 MPV 8.5 Neut % (Auto) 67.2 Lymph % (Auto) 20.7 Clare % (Auto) 6.5 Eos % (Auto) 4.7 H Baso % (Auto) 0.9 Neut # (Auto) 6.1 Lymph # (Auto) 1.9 Clare # (Auto) 0.6 Eos # (Auto) 0.4 Baso # (Auto) 0.1 WBC Differential . Differential Comment Auto diff final Sodium 139 Potassium 4.6 Chloride 110 H Carbon Dioxide 21.1 Anion Gap 8 BUN 43 H Creatinine 2.88 H Estimated GFR 22 L Random Glucose 94 Calcium 8.6 Phosphorus 4.0 Magnesium 2.2 Total Bilirubin 0.6 AST 18 ALT 40 Alkaline Phosphatase 104 Total Protein 7.7 Albumin 3.3 L Microbiology 01/24/18 15:16 Clean Catch Urine Urine Culture - Final No growth in 48 hours - Procedures NONE Assessment and Plan - Plan This is a 67-year-old male who presents with epigastric discomfort, elevated troponin and abnormal EKG. ACS with history of coronary artery disease status post stent. Stat EKG interpreted by me shows sinus rhythm, mild ST elevation V3 to V5 with Q waves. Patient will be kept n.p.o. continue heparin drip and trend cardiac enzymes. Continue aspirin, Lopressor and statin. Start Nitropaste. Dw cardiology. Transfer patient to see IC. Mildly elevated lipase. Denies alcohol use. CT of the abdomen reveals no acute findings to explain abdominal pain. He reports sensation of food getting stuck in his chest. Start PPI and as needed Tums. Will consider consultation with GI after cardiac evaluation. Chronic kidney disease stage IV was on dialysis 2 years ago. He is nonoliguric. Continue gentle IV hydration. Avoid nephrotoxins. Patient aware he might need to be back on dialysis if he undergoes cardiac catheterization. Consultation with nephrology will be placed. AT BASELINE NOW UTI WITH ESBL POSITIVE E. COLI - CONSULT ID START ANTIBIOTICS INVANZ IV DAILY STRESS TEST NO ISCHEMIA BUT EF OF 25% RENAL INSUFFICIENCY - WILL GIVE SOME FLUIDS AM LABS Multiple medical conditions of hypertension, hyperlipidemia and diabetes mellitus. Continue outpatient medications as appropriate. Monitor fingersticks with sliding scale coverage. DVT prophylaxis patient OFF HEPARIN DRIP Code Status: FULL CODE Discussed Condition With: RN AND PT AND CM Discharge Planning: OK TO TRANSFER OFF FLOOR CONSULT ID
[2018-01-27] MEDS: Isosorbide Mononitrate 60 MG ER 24HR Tablet (Imdur) PO SCH (06:49)
--- NOTE | 2018-01-27 08:05 | P.PNNP ---
Subjective Interval history: No new renal labs. Culture from 01/24/18 negative at 48 hours. Apparently waiting for ID clearance for discharge. He can be discharged from renal standpoint. Physical Exam Vital signs: Vital Signs 01/26/18 09:00 01/26/18 10:00 01/26/18 11:00 Temperature Pulse Rate 60 55 L 55 L Respiratory Rate Blood Pressure Pulse Oximetry 01/26/18 11:02 01/26/18 12:00 01/26/18 13:00 Temperature 98 F Pulse Rate 56 L 58 L Respiratory Rate 16 Blood Pressure 153/71 H Pulse Oximetry 91 L 96 01/26/18 14:00 01/26/18 15:00 01/26/18 15:45 Temperature 98.2 F Pulse Rate 60 58 L 60 Respiratory Rate 16 Blood Pressure 145/66 H Pulse Oximetry 95 01/26/18 15:52 01/26/18 17:00 01/26/18 18:00 Temperature 98.2 F Pulse Rate 60 58 L 67 Respiratory Rate 16 Blood Pressure 145/66 H Pulse Oximetry 95 01/26/18 20:00 01/27/18 00:00 01/27/18 04:00 Temperature 97.8 F 97.5 F L 97.7 F Pulse Rate 67 56 L 53 L Respiratory Rate 20 18 18 Blood Pressure 160/81 H 137/69 136/72 Pulse Oximetry 96 96 97 Intake & Output 01/26/18 01/27/18 01/27/18 18:59 06:59 18:59 Intake Total 1060 / 1060 240 / 240 Balance 1060 / 1060 240 / 240 Weight 66.7 kg Intake: IV 100 / 100 INVanz Inj 1,000 MG In NS Inj 100 / 100 100 ML @ 200 mls/hr IV.SIG Q24H [facility] Rx#:[id number] Oral 960 / 960 240 / 240 Other: # Voids 5 1 Date of Last Bowel Movement 01/22/18 01/22/18 # Bowel Movements 0 - Constitutional no acute distress - Routine HEENT Exam Head: Present: normocephalic Eye: Present: EOMI, PERRL ENT: Present: mucous membranes moist - Routine Neck Exam Present: supple. Absent: JVD, carotid bruit - Routine Respiratory Exam Present: CTA bilaterally - Routine Cardiovascular Exam Present: RRR, S1, S2 - Routine Abdominal Exam Present: soft, normoactive bowel sounds - Routine Extremities Exam Absent: edema Assessment and Plan - Assessment (1) CKD (chronic kidney disease), stage IV Code(s): N18.4 - Chronic kidney disease, stage 4 (severe) Status: Acute Plan: Renal function is at baseline. Imaging shows non obstructing renal stones. He has a history of the same. No need for emergent dialysis. Avoid nephrotoxins. Patient can be discharged from renal standpoint. (2) Non-ST elevation (NSTEMI) myocardial infarction Code(s): I21.4 - Non-ST elevation (NSTEMI) myocardial infarction Status: Acute Plan: EF of 25%, no reversible ischemia. - Plan He is cleared for discharge from renal perspective.
[2018-01-27] MEDS: Metoprolol Tartrate 50 MG Tablet PO SCH (08:50)
[2018-01-27] MEDS: Insulin NovoLOG Aspart Correctional Sugar Inj SQ SCH ×2 (08:50→11:18)
[2018-01-27] MEDS: amLODIPine 10 MG Tablet PO SCH (08:51)
[2018-01-27] MEDS: guaiFENesin 600 MG ER Tablet PO SCH (08:51)
[2018-01-27] MEDS: Lactobacillus Acidophilus/L. Spores Tablet PO SCH ×2 (08:52→14:25)
[2018-01-27] MEDS: Senna/Docusate Sodium 8.6/50 MG Tablet PO SCH (08:52)
--- NOTE | 2018-01-27 12:08 | P.PNID ---
Subjective Remarks: Patient feels okay. Denies dysuria.' Dnies chills. Afebrile. Repeat urine culture has no growth. Consulted for Extended-spectrum beta-lactamase Escherichia coli urinary tract infection. Antibiotics: Ertapenem Past Medical History: PAST MEDICAL HISTORY: Hypertension, hyperlipidemia, diabetes mellitus, AV fistula in the left upper extremity. Coronary artery disease with stent placement. Non functioning r. kidney. PAST SURGICAL HISTORY: History of appendectomy, history of cholecystectomy. Allergies/Adverse Reactions: Allergies No Known Allergies Allergy (Verified 01/21/18 12:15) Objective Vital Signs 01/26/18 13:00 01/26/18 14:00 01/26/18 15:00 Temperature Pulse Rate 58 L 60 58 L Respiratory Rate Blood Pressure Pulse Oximetry 01/26/18 15:45 01/26/18 15:52 01/26/18 17:00 Temperature 98.2 F 98.2 F Pulse Rate 60 60 58 L Respiratory Rate 16 16 Blood Pressure 145/66 H 145/66 H Pulse Oximetry 95 95 01/26/18 18:00 01/26/18 20:00 01/27/18 00:00 Temperature 97.8 F 97.5 F L Pulse Rate 67 67 56 L Respiratory Rate 20 18 Blood Pressure 160/81 H 137/69 Pulse Oximetry 96 96 01/27/18 04:00 01/27/18 07:00 01/27/18 08:00 Temperature 97.7 F 97.3 F L Pulse Rate 53 L 58 L 63 Respiratory Rate 18 24 Blood Pressure 136/72 167/77 H Pulse Oximetry 97 96 01/27/18 09:00 01/27/18 10:00 01/27/18 11:00 Temperature Pulse Rate 64 52 L 51 L Respiratory Rate Blood Pressure Pulse Oximetry Intake & Output 01/26/18 01/27/18 01/27/18 18:59 06:59 18:59 Intake Total 1060 / 1060 240 / 240 Balance 1060 / 1060 240 / 240 Weight 66.7 kg Intake: IV 100 / 100 INVanz Inj 1,000 MG In NS Inj 100 / 100 100 ML @ 200 mls/hr IV.SIG Q24H [facility] Rx#:[id number] Oral 960 / 960 240 / 240 Other: # Voids 5 1 Date of Last Bowel Movement 01/22/18 01/22/18 # Bowel Movements 0 01/24/18 15:16 Clean Catch Urine Urine Culture - Final No growth in 48 hours Lab - Hematology Results 01/26/18 05:01 WBC 9.1 RBC 3.98 L Hgb 10.0 L Hct 31.5 L MCV 79.0 L MCH 25.1 L MCHC 31.8 L RDW 16.8 Plt Count 362 MPV 8.5 Neut % (Auto) 67.2 Lymph % (Auto) 20.7 [place] % (Auto) 6.5 Eos % (Auto) 4.7 H Baso % (Auto) 0.9 Neut # (Auto) 6.1 Lymph # (Auto) 1.9 [place] # (Auto) 0.6 Eos # (Auto) 0.4 Baso # (Auto) 0.1 WBC Differential . Differential Comment Auto diff final Lab - Chemistry Results 01/26/18 05:01 Sodium 139 Potassium 4.6 Chloride 110 H Carbon Dioxide 21.1 Anion Gap 8 BUN 43 H Creatinine 2.88 H Estimated GFR 22 L Random Glucose 94 Calcium 8.6 Phosphorus 4.0 Magnesium 2.2 Total Bilirubin 0.6 AST 18 ALT 40 Alkaline Phosphatase 104 Total Protein 7.7 Albumin 3.3 L Imaging: ITS Impressions Chest X-Ray 01/21/18 12:19 CONCLUSION: Cardiomegaly with no acute cardiopulmonary disease. Abdomen/Pelvis CT 01/21/18 13:32 CONCLUSION: 1. Study is breathing motion degraded. 2. Tiny bilateral pleural effusions. 3. Cardiomegaly. 4. No acute abnormality to explain the patient's pain. 5. Nonobstructing right renal calculi. Myocardial Perfusion Scan Nuc Med 01/22/18 00:00 CONCLUSION: 1. Significant reduction in ejection fraction and global hypokinesis without any significant ischemia. Physical Exam: GENERAL: No acute distress. HEENT: Head is atraumatic. Extraocular movements are grossly intact. Pupils reactive to light. No icterus. No conjunctival erythema. Oropharynx moist mucosa. No thrush. NECK: Supple without adenopathy. LUNGS: Clear breath sounds. HEART: Regular S1, S2. No audible murmurs, rubs or gallops. ABDOMEN: Protuberant, soft, positive bowel sounds, No palpable mass. No tenderness. EXTREMITIES: No clubbing, cyanosis or edema. The patient has an AV fistula in the left antecubital area, which has a very strong bruit. SKIN: No diffuse rash. NEUROLOGIC: No gross focal findings. PSYCHIATRIC: Calm and cooperative. Assessment and Plan - Plan IMPRESSION: 1. Complicated urinary tract infection due to extended-spectrum [id number] Escherichia coli in a patient with history Non functioning r. kidney Repeat urine culture is negative. 2. Chronic kidney disease. RECOMMENDATIONS: 1. Stop Ertapenem. 2. Okay to discharge without additional antibiotics. D/W RN.
--- NOTE | 2018-01-27 14:11 | P.PNIM ---
Subjective Interval history: This is a 67-year-old male with a history of hypertension, hyperlipidemia, diabetes mellitus and coronary artery disease status post stent 2 years ago. He presents to the emergency department complaining of epigastric pressure discomfort which started 4 days ago. It is an intermittent exertional pain without radiation and not associated with shortness of breath, nausea, palpitations and dizziness. It is relieved with sublingual nitroglycerin but got worse last night prompting ER evaluation. EKG reportedly unremarkable per ER physician (unable to review). Troponin 0.3 and was started on heparin drip. Took aspirin today. Lipase is also slightly elevated at [address] of the abdomen pelvis reveals no acute findings to explain abdominal pain. Patient does report of sensation of food getting stuck in his chest but denies pain after eating. Does not recall having EGD. He also has history of chronic kidney disease stage IV was on dialysis 2 years ago. He is nonoliguric. All other systems reviewed negative 7- Patient is in the chair does not appear in acute distress at this time however he complains of chest pain intermittent. Also complains of epigastric pain. Patient has diabetes he might also have gastroparesis. Consider GI series series and consider GI consult if no improvement. Patient can also follow up as OP with GI. However he recently moved in this area and doesn't have established care here. Plan for stress test in the afternoon today. 01-23 NOTED TO BE ESBL POSITIVE FOR UTI WILL START MEDS AND CONSULT ID--START INVANZ AM LABS OK TO MOVE OFF OF CIC NOT CLEARED FOR DC DW RN AND PT AND FAMILY AND CM STRESS TEST NO ISCHEMIA BUT EF OF ONLY 25% START INVANZ 01-24 DW RN AND PT AND CM AND ID RENAL INSUFFICIENCY TODAY AM LABS START GENTLE FLUID REHYDRATION NEEDS PT AND OT 7 MEDICATIONS ADJUSTED BY RENAL AND ID ON INVANZ NOT CLEARED BY THEM FOR DC YET OK TO TRANSFER OFF FLOOR NO NEW COMPLAINTS AM LABS 8-1 ON INVANZ NOT CLEARED BY ID FOR DC YET NO NEW COMPLAINTS CLEARED BY CARDIO AND RENAL AM LABS 8-2 FOLLOW UP ON UTI CLEARED BY ID TO DC ON NO ANTIBIOTICS DC TO HOME TODAY CLEARED BY ALL FOLLOW UP WITH PCP AND CARDIO DC HOME Physical Exam Vital signs: Vital Signs 01/26/18 15:00 01/26/18 15:45 01/26/18 15:52 Temperature 98.2 F 98.2 F Pulse Rate 58 L 60 60 Respiratory Rate 16 16 Blood Pressure 145/66 H 145/66 H Pulse Oximetry 95 95 01/26/18 17:00 01/26/18 18:00 01/26/18 20:00 Temperature 97.8 F Pulse Rate 58 L 67 67 Respiratory Rate 20 Blood Pressure 160/81 H Pulse Oximetry 96 01/27/18 00:00 01/27/18 04:00 01/27/18 07:00 Temperature 97.5 F L 97.7 F Pulse Rate 56 L 53 L 58 L Respiratory Rate 18 18 Blood Pressure 137/69 136/72 Pulse Oximetry 96 97 01/27/18 08:00 01/27/18 09:00 01/27/18 10:00 Temperature 97.3 F L Pulse Rate 63 64 52 L Respiratory Rate 24 Blood Pressure 167/77 H Pulse Oximetry 96 01/27/18 11:00 01/27/18 12:00 Temperature 97.6 F Pulse Rate 51 L 58 L Respiratory Rate 24 Blood Pressure 137/63 Pulse Oximetry 96 Intake & Output 01/26/18 01/27/18 01/27/18 18:59 06:59 18:59 Intake Total 1060 / 1060 240 / 240 Balance 1060 / 1060 240 / 240 Weight 66.7 kg Intake: IV 100 / 100 INVanz Inj 1,000 MG In NS Inj 100 / 100 100 ML @ 200 mls/hr IV.SIG Q24H ILYA Rx#:[id number] Oral 960 / 960 240 / 240 Other: # Voids 5 1 Date of Last Bowel Movement 01/22/18 01/22/18 # Bowel Movements 0 Narrative: Physical exam GENERAL: Well-developed and well-nourished in mild distress secondary to pain CARDIOVASCULAR: Regular rate and rhythm. S1, S2 NO S3 OR S4 RESPIRATORY: No accessory muscle use. Clear to auscultation. Breath sounds equal bilaterally. GASTROINTESTINAL: Abdomen soft, slightly tender epigastric area, nondistended. MUSCULOSKELETAL: Extremities without clubbing, cyanosis, or edema. No obvious deformities. AV fistula left upper extremity with thrill NEUROLOGICAL: Awake and alert. No obvious cranial nerve deficits. Motor grossly within normal limits. Five out of 5 muscle strength in the arms and legs. Normal speech. PSYCHIATRIC: Appropriate mood and affect; insight and judgment normal. Results - Labs CBC & Chem 7: 01/26/18 05:01 01/26/18 05:01 Laboratory Tests 01/21/18 01/21/18 01/21/18 12:20 12:20 12:20 WBC 10.7 RBC 4.05 L Hgb 10.2 L Hct 32.0 L MCV 78.9 L MCH 25.3 L MCHC 32.0 RDW 16.3 Plt Count 372 MPV 8.3 Neut % (Auto) 69.7 Lymph % (Auto) 19.4 [place] % (Auto) 6.3 Eos % (Auto) 3.6 Baso % (Auto) 1.0 Neut # (Auto) 7.4 Lymph # (Auto) 2.1 [place] # (Auto) 0.7 Eos # (Auto) 0.4 Baso # (Auto) 0.1 WBC Differential . Differential Comment Auto diff final PT 11.2 INR 1.1 APTT 25.4 Sodium 139 Potassium 4.4 Chloride 111 H Carbon Dioxide 21.7 Anion Gap 6 BUN 30 H Creatinine 2.87 H Estimated GFR 22 L POC Glucose Random Glucose 146 H Hemoglobin A1c Calcium 8.1 L Phosphorus Magnesium Total Bilirubin 0.8 AST 24 ALT 47 Alkaline Phosphatase 102 Total Creatine Kinase Troponin I 0.32 H Total Protein 7.4 Albumin 3.4 Lipase 408 H TSH Free T4 Urine Color Urine Clarity Urine pH Ur Specific [place] Urine Protein Urine Glucose (UA) Urine Ketones Urine Occult Blood Urine Nitrate Urine Bilirubin Urine Urobilinogen Ur Leukocyte Esterase Urine RBC Urine WBC Urine WBC Clumps Urine Bacteria Micro UA Comment Urine Culture Comments 01/21/18 01/21/18 01/21/18 17:09 17:58 18:55 WBC RBC Hgb Hct MCV MCH MCHC RDW Plt Count MPV Neut % (Auto) Lymph % (Auto) [place] % (Auto) Eos % (Auto) Baso % (Auto) Neut # (Auto) Lymph # (Auto) [place] # (Auto) Eos # (Auto) Baso # (Auto) WBC Differential Differential Comment PT 11.1 INR 1.1 APTT 34.7 H D Sodium Potassium Chloride Carbon Dioxide Anion Gap BUN Creatinine Estimated GFR POC Glucose 88 Random Glucose Hemoglobin A1c Calcium Phosphorus Magnesium Total Bilirubin AST ALT Alkaline Phosphatase Total Creatine Kinase Troponin I Total Protein Albumin Lipase TSH Free T4 Urine Color Yellow Urine Clarity Cloudy H Urine pH 5.0 Ur Specific [place] 1.013 Urine Protein 100 H Urine Glucose (UA) Negative Urine Ketones Negative Urine Occult Blood Small H Urine Nitrate Negative Urine Bilirubin Negative Urine Urobilinogen Less than 2 Ur Leukocyte Esterase Large H Urine RBC 9 H Urine WBC Urine WBC Clumps Many H Urine Bacteria Many H Micro UA Comment Culture indicated Urine Culture Comments Culture indicated 01/21/18 01/21/18 01/22/18 18:55 21:02 00:53 WBC RBC Hgb Hct MCV MCH MCHC RDW Plt Count MPV Neut % (Auto) Lymph % (Auto) [place] % (Auto) Eos % (Auto) Baso % (Auto) Neut # (Auto) Lymph # (Auto) [place] # (Auto) Eos # (Auto) Baso # (Auto) WBC Differential Differential Comment PT INR APTT Sodium 141 Potassium 4.4 Chloride 112 H Carbon Dioxide 20.9 L Anion Gap 8 BUN 34 H Creatinine 2.89 H Estimated GFR 22 L POC Glucose 157 H Random Glucose 81 Hemoglobin A1c Calcium 8.0 L Phosphorus 4.5 Magnesium 2.3 Total Bilirubin 0.8 AST 20 ALT 40 Alkaline Phosphatase 98 Total Creatine Kinase 142 116 Troponin I 0.32 H 0.28 H Total Protein 7.2 Albumin 3.1 L Lipase 397 H TSH Free T4 Urine Color Urine Clarity Urine pH Ur Specific [place] Urine Protein Urine Glucose (UA) Urine Ketones Urine Occult Blood Urine Nitrate Urine Bilirubin Urine Urobilinogen Ur Leukocyte Esterase Urine RBC Urine WBC Urine WBC Clumps Urine Bacteria Micro UA Comment Urine Culture Comments 01/22/18 01/22/18 01/22/18 00:53 04:03 07:47 WBC 10.8 RBC 4.00 L Hgb 9.9 L Hct 31.4 L MCV 78.4 L MCH 24.8 L MCHC 31.7 L RDW 16.5 Plt Count 336 MPV 8.0 Neut % (Auto) 65.7 Lymph % (Auto) 22.6 [place] % (Auto) 6.8 Eos % (Auto) 4.1 H Baso % (Auto) 0.8 Neut # (Auto) 7.1 Lymph # (Auto) 2.5 [place] # (Auto) 0.7 Eos # (Auto) 0.4 Baso # (Auto) 0.1 WBC Differential . Differential Comment Auto diff final PT INR APTT 47.6 H D Sodium Potassium Chloride Carbon Dioxide Anion Gap BUN Creatinine Estimated GFR POC Glucose 79 Random Glucose Hemoglobin A1c Calcium Phosphorus Magnesium Total Bilirubin AST ALT Alkaline Phosphatase Total Creatine Kinase Troponin I Total Protein Albumin Lipase TSH Free T4 Urine Color Urine Clarity Urine pH Ur Specific [place] Urine Protein Urine Glucose (UA) Urine Ketones Urine Occult Blood Urine Nitrate Urine Bilirubin Urine Urobilinogen Ur Leukocyte Esterase Urine RBC Urine WBC Urine WBC Clumps Urine Bacteria Micro UA Comment Urine Culture Comments 01/22/18 01/22/18 01/22/18 08:37 11:53 21:18 WBC RBC Hgb Hct MCV MCH MCHC RDW Plt Count MPV Neut % (Auto) Lymph % (Auto) [place] % (Auto) Eos % (Auto) Baso % (Auto) Neut # (Auto) Lymph # (Auto) [place] # (Auto) Eos # (Auto) Baso # (Auto) WBC Differential Differential Comment PT INR APTT 42.5 H Sodium Potassium Chloride Carbon Dioxide Anion Gap BUN Creatinine Estimated GFR POC Glucose 97 88 Random Glucose Hemoglobin A1c Calcium Phosphorus Magnesium Total Bilirubin AST ALT Alkaline Phosphatase Total Creatine Kinase Troponin I Total Protein Albumin Lipase TSH Free T4 Urine Color Urine Clarity Urine pH Ur Specific [place] Urine Protein Urine Glucose (UA) Urine Ketones Urine Occult Blood Urine Nitrate Urine Bilirubin Urine Urobilinogen Ur Leukocyte Esterase Urine RBC Urine WBC Urine WBC Clumps Urine Bacteria Micro UA Comment Urine Culture Comments 01/23/18 01/23/18 01/23/18 03:35 08:56 11:46 WBC 10.7 RBC 4.09 L Hgb 10.4 L Hct 32.5 L MCV 79.5 L MCH 25.3 L MCHC 31.9 L RDW 16.7 Plt Count 330 MPV 8.6 Neut % (Auto) Lymph % (Auto) [place] % (Auto) Eos % (Auto) Baso % (Auto) Neut # (Auto) Lymph # (Auto) [place] # (Auto) Eos # (Auto) Baso # (Auto) WBC Differential Differential Comment PT INR APTT Sodium Potassium Chloride Carbon Dioxide Anion Gap BUN Creatinine Estimated GFR POC Glucose 98 133 H Random Glucose Hemoglobin A1c Calcium Phosphorus Magnesium Total Bilirubin AST ALT Alkaline Phosphatase Total Creatine Kinase Troponin I Total Protein Albumin Lipase TSH Free T4 Urine Color Urine Clarity Urine pH Ur Specific [place] Urine Protein Urine Glucose (UA) Urine Ketones Urine Occult Blood Urine Nitrate Urine Bilirubin Urine Urobilinogen Ur Leukocyte Esterase Urine RBC Urine WBC Urine WBC Clumps Urine Bacteria Micro UA Comment Urine Culture Comments 01/23/18 01/24/18 01/24/18 17:45 04:59 04:59 WBC 9.8 RBC 3.99 L Hgb 10.1 L Hct 31.8 L MCV 79.6 L MCH 25.2 L MCHC 31.7 L RDW 16.5 Plt Count 342 MPV 8.8 Neut % (Auto) 77.6 H Lymph % (Auto) 13.6 [place] % (Auto) 4.8 Eos % (Auto) 3.6 Baso % (Auto) 0.4 Neut # (Auto) 7.6 Lymph # (Auto) 1.3 [place] # (Auto) 0.5 Eos # (Auto) 0.3 Baso # (Auto) 0.0 WBC Differential . Differential Comment Auto diff final PT INR APTT Sodium Potassium Chloride Carbon Dioxide Anion Gap BUN Creatinine Estimated GFR POC Glucose 118 H Random Glucose Hemoglobin A1c 6.4 H Calcium Phosphorus Magnesium Total Bilirubin AST ALT Alkaline Phosphatase Total Creatine Kinase Troponin I Total Protein Albumin Lipase TSH Free T4 Urine Color Urine Clarity Urine pH Ur Specific [place] Urine Protein Urine Glucose (UA) Urine Ketones Urine Occult Blood Urine Nitrate Urine Bilirubin Urine Urobilinogen Ur Leukocyte Esterase Urine RBC Urine WBC Urine WBC Clumps Urine Bacteria Micro UA Comment Urine Culture Comments 01/24/18 01/24/18 01/24/18 04:59 07:41 12:17 WBC RBC Hgb Hct MCV MCH MCHC RDW Plt Count MPV Neut % (Auto) Lymph % (Auto) [place] % (Auto) Eos % (Auto) Baso % (Auto) Neut # (Auto) Lymph # (Auto) [place] # (Auto) Eos # (Auto) Baso # (Auto) WBC Differential Differential Comment PT INR APTT Sodium 141 Potassium 4.9 Chloride 112 H Carbon Dioxide 21.9 Anion Gap 7 BUN 44 H Creatinine 3.11 H Estimated GFR 20 L POC Glucose 113 H 156 H Random Glucose 102 Hemoglobin A1c Calcium 8.3 L Phosphorus 4.0 Magnesium 2.3 Total Bilirubin 0.6 AST 29 ALT 50 Alkaline Phosphatase 107 Total Creatine Kinase Troponin I Total Protein 7.6 Albumin 3.3 L Lipase TSH 3.330 Free T4 1.01 Urine Color Urine Clarity Urine pH Ur Specific [place] Urine Protein Urine Glucose (UA) Urine Ketones Urine Occult Blood Urine Nitrate Urine Bilirubin Urine Urobilinogen Ur Leukocyte Esterase Urine RBC Urine WBC Urine WBC Clumps Urine Bacteria Micro UA Comment Urine Culture Comments 01/24/18 01/24/18 01/25/18 17:22 19:50 06:07 WBC 8.8 RBC 4.03 L Hgb 10.0 L Hct 31.9 L MCV 79.3 L MCH 24.8 L MCHC 31.3 L RDW 16.8 Plt Count 352 MPV 8.2 Neut % (Auto) 65.5 Lymph % (Auto) 21.7 [place] % (Auto) 7.0 Eos % (Auto) 5.3 H Baso % (Auto) 0.5 Neut # (Auto) 5.7 Lymph # (Auto) 1.9 [place] # (Auto) 0.6 Eos # (Auto) 0.5 H Baso # (Auto) 0.0 WBC Differential . Differential Comment Auto diff final PT INR APTT Sodium Potassium Chloride Carbon Dioxide Anion Gap BUN Creatinine Estimated GFR POC Glucose 149 H 120 H Random Glucose Hemoglobin A1c Calcium Phosphorus Magnesium Total Bilirubin AST ALT Alkaline Phosphatase Total Creatine Kinase Troponin I Total Protein Albumin Lipase TSH Free T4 Urine Color Urine Clarity Urine pH Ur Specific [place] Urine Protein Urine Glucose (UA) Urine Ketones Urine Occult Blood Urine Nitrate Urine Bilirubin Urine Urobilinogen Ur Leukocyte Esterase Urine RBC Urine WBC Urine WBC Clumps Urine Bacteria Micro UA Comment Urine Culture Comments 01/25/18 01/26/18 01/26/18 06:07 05:01 05:01 WBC 9.1 RBC 3.98 L Hgb 10.0 L Hct 31.5 L MCV 79.0 L MCH 25.1 L MCHC 31.8 L RDW 16.8 Plt Count 362 MPV 8.5 Neut % (Auto) 67.2 Lymph % (Auto) 20.7 [place] % (Auto) 6.5 Eos % (Auto) 4.7 H Baso % (Auto) 0.9 Neut # (Auto) 6.1 Lymph # (Auto) 1.9 [place] # (Auto) 0.6 Eos # (Auto) 0.4 Baso # (Auto) 0.1 WBC Differential . Differential Comment Auto diff final PT INR APTT Sodium 139 139 Potassium 4.7 4.6 Chloride 110 H 110 H Carbon Dioxide 19.8 L 21.1 Anion Gap 9 8 BUN 40 H 43 H Creatinine 3.01 H 2.88 H Estimated GFR 21 L 22 L POC Glucose Random Glucose 89 94 Hemoglobin A1c Calcium 8.5 8.6 Phosphorus 4.0 4.0 Magnesium 2.2 2.2 Total Bilirubin 0.8 0.6 AST 20 18 ALT 45 40 Alkaline Phosphatase 105 104 Total Creatine Kinase Troponin I Total Protein 7.7 7.7 Albumin 3.3 L 3.3 L Lipase TSH Free T4 Urine Color Urine Clarity Urine pH Ur Specific [place] Urine Protein Urine Glucose (UA) Urine Ketones Urine Occult Blood Urine Nitrate Urine Bilirubin Urine Urobilinogen Ur Leukocyte Esterase Urine RBC Urine WBC Urine WBC Clumps Urine Bacteria Micro UA Comment Urine Culture Comments - Imaging Chest X-Ray 01/21/18 12:19 CONCLUSION: Cardiomegaly with no acute cardiopulmonary disease. Abdomen/Pelvis CT 01/21/18 13:32 CONCLUSION: 1. Study is breathing motion degraded. 2. Tiny bilateral pleural effusions. 3. Cardiomegaly. 4. No acute abnormality to explain the patient's pain. 5. Nonobstructing right renal calculi. Myocardial Perfusion Scan Nuc Med 01/22/18 00:00 CONCLUSION: 1. Significant reduction in ejection fraction and global hypokinesis without any significant ischemia. - Procedures NONE Assessment and Plan - Plan This is a 67-year-old male who presents with epigastric discomfort, elevated troponin and abnormal EKG. ACS with history of coronary artery disease status post stent. Stat EKG interpreted by me shows sinus rhythm, mild ST elevation V3 to V5 with Q waves. Patient will be kept n.p.o. continue heparin drip and trend cardiac enzymes. Continue aspirin, Lopressor and statin. Start Nitropaste. Dw cardiology. Transfer patient to see IC. Mildly elevated lipase. Denies alcohol use. CT of the abdomen reveals no acute findings to explain abdominal pain. He reports sensation of food getting stuck in his chest. Start PPI and as needed Tums. Will consider consultation with GI after cardiac evaluation. Chronic kidney disease stage IV was on dialysis 2 years ago. He is nonoliguric. Continue gentle IV hydration. Avoid nephrotoxins. Patient aware he might need to be back on dialysis if he undergoes cardiac catheterization. Consultation with nephrology will be placed. AT BASELINE NOW UTI WITH ESBL POSITIVE E. COLI - CONSULT ID START ANTIBIOTICS INVANZ IV -- DCED BY ID STRESS TEST NO ISCHEMIA BUT EF OF 25% RENAL INSUFFICIENCY - WILL GIVE SOME FLUIDS AM LABS Multiple medical conditions of hypertension, hyperlipidemia and diabetes mellitus. Continue outpatient medications as appropriate. Monitor fingersticks with sliding scale coverage. DVT prophylaxis patient OFF HEPARIN DRIP DCED BY RENAL AND ID AND CARDIO DC TO HOME TODAY DOES NOT WANT [facility] Code Status: FULL CODE Discussed Condition With: RN AND PT AND ID Discharge Planning: DC TO HOME TODAY
--- NOTE | 2018-01-27 14:18 | P.DS ---
Date of admission: 01/21/18 14:16 Primary care physician: UNKNOWN Attending physician on discharge: Kirby Birch Anticipated date of discharge: 01/27/18 Brief History from admission: This is a 67-year-old male with a history of hypertension, hyperlipidemia, diabetes mellitus and coronary artery disease status post stent 2 years ago. He presents to the emergency department complaining of epigastric pressure discomfort which started 4 days ago. It is an intermittent exertional pain without radiation and not associated with shortness of breath, nausea, palpitations and dizziness. It is relieved with sublingual nitroglycerin but got worse last night prompting ER evaluation. EKG reportedly unremarkable per ER physician (unable to review). Troponin 0.3 and was started on heparin drip. Took aspirin today. Lipase is also slightly elevated at [address] of the abdomen pelvis reveals no acute findings to explain abdominal pain. Patient does report of sensation of food getting stuck in his chest but denies pain after eating. Does not recall having EGD. He also has history of chronic kidney disease stage IV was on dialysis 2 years ago. He is nonoliguric. All other systems reviewed negative DS: Diagnosis - Discharge Diagnosis (1) CKD (chronic kidney disease), stage IV Status: Chronic (2) ESBL (extended spectrum beta-lactamase) producing bacteria infection Status: Resolved (3) Non-ST elevation (NSTEMI) myocardial infarction Status: Acute (4) Coronary artery disease Status: Chronic (5) Hyperlipidemia Status: Chronic (6) Hypertension Status: Chronic DS: Medications - Discharge Medications Prescriptions: acidophilus-sporogenes [Acidophilus Ex Str (L. sporog)] 1 tab PO TID #90 tab amlodipine 10 mg PO DAILY #30 tab aspirin 325 mg PO DAILY #30 tab isosorbide mononitrate 60 mg PO DAILY@0700 #30 tab metoprolol tartrate 50 mg PO BID #60 tab nitroglycerin [Nitrostat] 0.4 mg SUBLINGUAL Q5M PRN #100 tab PRN Reason: Chest Pain simvastatin 10 mg PO QPM #30 tab DS: Summary Hospital Course: This is a 67-year-old male with a history of hypertension, hyperlipidemia, diabetes mellitus and coronary artery disease status post stent 2 years ago. He presents to the emergency department complaining of epigastric pressure discomfort which started 4 days ago. It is an intermittent exertional pain without radiation and not associated with shortness of breath, nausea, palpitations and dizziness. It is relieved with sublingual nitroglycerin but got worse last night prompting ER evaluation. EKG reportedly unremarkable per ER physician (unable to review). Troponin 0.3 and was started on heparin drip. Took aspirin today. Lipase is also slightly elevated at [address] of the abdomen pelvis reveals no acute findings to explain abdominal pain. Patient does report of sensation of food getting stuck in his chest but denies pain after eating. Does not recall having EGD. He also has history of chronic kidney disease stage IV was on dialysis 2 years ago. He is nonoliguric. All other systems reviewed negative 7- Patient is in the chair does not appear in acute distress at this time however he complains of chest pain intermittent. Also complains of epigastric pain. Patient has diabetes he might also have gastroparesis. Consider GI series series and consider GI consult if no improvement. Patient can also follow up as OP with GI. However he recently moved in this area and doesn't have established care here. Plan for stress test in the afternoon today. 01-23 NOTED TO BE ESBL POSITIVE FOR UTI WILL START MEDS AND CONSULT ID--START [facility] AM LABS OK TO MOVE OFF OF CIC NOT CLEARED FOR DC DW RN AND PT AND FAMILY AND CM STRESS TEST NO ISCHEMIA BUT EF OF ONLY 25% START INV[facility]Z 30 DW RN AND PT AND CM AND ID RENAL INSUFFICIENCY TODAY AM LABS START GENTLE FLUID REHYDRATION NEEDS PT AND OT 7 MEDICATIONS ADJUSTED BY RENAL AND ID ON INVAN[facility] NOT CLEARED BY THEM FOR DC YET OK TO TRANSFER OFF FLOOR NO NEW COMPLAINTS AM LABS 8-1 ON INV[facility] NOT CLEARED BY ID FOR DC YET NO NEW COMPLAINTS CLEARED BY CARDIO AND RENAL AM LABS 8-2 FOLLOW UP ON UTI CLEARED BY ID TO DC ON NO ANTIBIOTICS DC TO HOME TODAY CLEARED BY ALL FOLLOW UP WITH PCP AND CARDIO DC HOME - Time Spent with Patient Total time spent providing and/or coordinating discharge services: Greater than 30 minutes - Quality: VTE Deep Vein Thrombosis/Pulmonary Embolism Present on Admission: No Exam Vital signs: Vital Signs 01/26/18 15:00 01/26/18 15:45 01/26/18 15:52 Temperature 98.2 F 98.2 F Pulse Rate 58 L 60 60 Respiratory Rate 16 16 Blood Pressure 145/66 H 145/66 H Pulse Oximetry 95 95 01/26/18 17:00 01/26/18 18:00 01/26/18 20:00 Temperature 97.8 F Pulse Rate 58 L 67 67 Respiratory Rate 20 Blood Pressure 160/81 H Pulse Oximetry 96 01/27/18 00:00 01/27/18 04:00 01/27/18 07:00 Temperature 97.5 F L 97.7 F Pulse Rate 56 L 53 L 58 L Respiratory Rate 18 18 Blood Pressure 137/69 136/72 Pulse Oximetry 96 97 01/27/18 08:00 01/27/18 09:00 01/27/18 10:00 Temperature 97.3 F L Pulse Rate 63 64 52 L Respiratory Rate 24 Blood Pressure 167/77 H Pulse Oximetry 96 01/27/18 11:00 01/27/18 12:00 Temperature 97.6 F Pulse Rate 51 L 58 L Respiratory Rate 24 Blood Pressure 137/63 Pulse Oximetry 96 Intake & Output 01/26/18 01/27/18 01/27/18 18:59 06:59 18:59 Intake Total 1060 / 1060 240 / 240 Balance 1060 / 1060 240 / 240 Weight 66.7 kg Intake: IV 100 / 100 INVanz Inj 1,000 MG In NS Inj 100 / 100 100 ML @ 200 mls/hr IV.SIG Q24H ILYA Rx#:[id number] Oral 960 / 960 240 / 240 Other: # Voids 5 1 Date of Last Bowel Movement 01/22/18 01/22/18 # Bowel Movements 0 Narrative: GENERAL: Well-developed and well-nourished in mild distress secondary to pain CARDIOVASCULAR: Regular rate and rhythm. S1, S2 NO S3 OR S4 RESPIRATORY: No accessory muscle use. Clear to auscultation. Breath sounds equal bilaterally. GASTROINTESTINAL: Abdomen soft, slightly tender epigastric area, nondistended. MUSCULOSKELETAL: Extremities without clubbing, cyanosis, or edema. No obvious deformities. AV fistula left upper extremity with thrill NEUROLOGICAL: Awake and alert. No obvious cranial nerve deficits. Motor grossly within normal limits. Five out of 5 muscle strength in the arms and legs. Normal speech. PSYCHIATRIC: Appropriate mood and affect; insight and judgment normal. Results Procedures completed during hospitalization: NONE Completed studies during hospitalization: Laboratory Results WBC 9.1 th/mm3 (4.0-11.0) 01/26/18 05:01 RBC 3.98 mil/mm3 (4.50-5.90) L 01/26/18 05:01 Hgb 10.0 gm/dL (13.0-17.0) L 01/26/18 05:01 Hct 31.5 % (39.0-51.0) L 01/26/18 05:01 MCV 79.0 fL (80.0-100.0) L 01/26/18 05:01 MCH 25.1 pg (27.0-34.0) L 01/26/18 05:01 MCHC 31.8 % (32.0-36.0) L 01/26/18 05:01 RDW 16.8 % (11.6-17.2) 01/26/18 05:01 Plt Count 362 th/mm3 (150-450) 01/26/18 05:01 MPV 8.5 fL (7.0-11.0) 01/26/18 05:01 Neut % (Auto) 67.2 % (16.0-70.0) 01/26/18 05:01 Lymph % (Auto) 20.7 % (9.0-44.0) 01/26/18 05:01 Centre % (Auto) 6.5 % (0.0-8.0) 01/26/18 05:01 Eos % (Auto) 4.7 % (0.0-4.0) H 01/26/18 05:01 Baso % (Auto) 0.9 % (0.0-2.0) 01/26/18 05:01 Neut # (Auto) 6.1 th/mm3 (1.8-7.7) 01/26/18 05:01 Lymph # (Auto) 1.9 th/mm3 (1.0-4.8) 01/26/18 05:01 Centre # (Auto) 0.6 th/mm3 (0.0-0.9) 01/26/18 05:01 Eos # (Auto) 0.4 th/mm3 (0.0-0.4) 01/26/18 05:01 Baso # (Auto) 0.1 th/mm3 (0.0-0.2) 01/26/18 05:01 WBC Differential . 01/26/18 05:01 Differential Comment Auto diff final 01/26/18 05:01 PT 11.1 sec (9.8-11.6) 01/21/18 18:55 INR 1.1 Ratio 01/21/18 18:55 APTT 42.5 sec (24.3-30.1) H 01/22/18 08:37 Sodium 139 meq/L (136-145) 01/26/18 05:01 Potassium 4.6 meq/L (3.5-5.1) 01/26/18 05:01 Chloride 110 meq/L (98-107) H 01/26/18 05:01 Carbon Dioxide 21.1 meq/L (21.0-32.0) 01/26/18 05:01 Anion Gap 8 meq/L (5-15) 01/26/18 05:01 BUN 43 mg/dL (7-18) H 01/26/18 05:01 Creatinine 2.88 mg/dL (0.60-1.30) H 01/26/18 05:01 Estimated GFR 22 mL/min (>89) L 01/26/18 05:01 POC Glucose 120 mg/dl (68-110) H 01/24/18 19:50 Random Glucose 94 mg/dL (74-106) 01/26/18 05:01 Hemoglobin A1c 6.4 % (4.3-6.0) H 01/24/18 04:59 Calcium 8.6 mg/dL (8.5-10.1) 01/26/18 05:01 Phosphorus 4.0 mg/dL (2.5-4.9) 01/26/18 05:01 Magnesium 2.2 mg/dL (1.5-2.5) 01/26/18 05:01 Total Bilirubin 0.6 mg/dL (0.2-1.0) 01/26/18 05:01 AST 18 U/L (15-37) 01/26/18 05:01 ALT 40 U/L (12-78) 01/26/18 05:01 Alkaline Phosphatase 104 U/L (45-117) 01/26/18 05:01 Total Creatine Kinase 116 U/L (39-308) 01/22/18 00:53 Troponin I 0.28 ng/mL (0.02-0.05) H 01/22/18 00:53 Total Protein 7.7 g/dL (6.4-8.2) 01/26/18 05:01 Albumin 3.3 g/dL (3.4-5.0) L 01/26/18 05:01 Lipase 397 U/L (73-393) H 01/22/18 00:53 TSH 3.330 uIU/mL (0.358-3.740) 01/24/18 04:59 Free T4 1.01 ng/dL (0.76-1.46) 01/24/18 04:59 Urine Color Yellow (Yellw/Straw) 01/21/18 17:58 Urine Clarity Cloudy (Clear) H 01/21/18 17:58 Urine pH 5.0 (5.0-8.5) 01/21/18 17:58 Ur Specific [place] 1.013 (1.002-1.035) 01/21/18 17:58 Urine Protein 100 mg/dL (Neg-Trace) H 01/21/18 17:58 Urine Glucose (UA) Negative mg/dL (Negative) 01/21/18 17:58 Urine Ketones Negative mg/dL (Negative) 01/21/18 17:58 Urine Occult Blood Small (Negative) H 01/21/18 17:58 Urine Nitrate Negative (Negative) 01/21/18 17:58 Urine Bilirubin Negative (Negative) 01/21/18 17:58 Urine Urobilinogen Less than 2 mg/dL (Less than 2) 01/21/18 17:58 Ur Leukocyte Esterase Large (Negative) H 01/21/18 17:58 Urine RBC 9 /hpf (0-3) H 01/21/18 17:58 Urine WBC /hpf (0-5) 01/21/18 17:58 Urine WBC Clumps Many (None) H 01/21/18 17:58 Urine Bacteria Many /hpf (None) H 01/21/18 17:58 Micro UA Comment Culture indicated 01/21/18 17:58 Urine Culture Comments Culture indicated 01/21/18 17:58 Impressions Chest X-Ray 01/21/18 12:19 CONCLUSION: Cardiomegaly with no acute cardiopulmonary disease. Abdomen/Pelvis CT 01/21/18 13:32 CONCLUSION: 1. Study is breathing motion degraded. 2. Tiny bilateral pleural effusions. 3. Cardiomegaly. 4. No acute abnormality to explain the patient's pain. 5. Nonobstructing right renal calculi. Myocardial Perfusion Scan Nuc Med 01/22/18 00:00 CONCLUSION: 1. Significant reduction in ejection fraction and global hypokinesis without any significant ischemia. - Impressions ITS Impressions Chest X-Ray 01/21/18 12:19 CONCLUSION: Cardiomegaly with no acute cardiopulmonary disease. Abdomen/Pelvis CT 01/21/18 13:32 CONCLUSION: 1. Study is breathing motion degraded. 2. Tiny bilateral pleural effusions. 3. Cardiomegaly. 4. No acute abnormality to explain the patient's pain. 5. Nonobstructing right renal calculi. Myocardial Perfusion Scan Nuc Med 01/22/18 00:00 CONCLUSION: 1. Significant reduction in ejection fraction and global hypokinesis without any significant ischemia. Discharge Plan - Discharge Disposition Patient Disposition: 01 Discharge Home - Discharge Condition Condition: Stable - Discharge Order Discharge Orders: Discharge Order (Routine); Ordered 01/27/18 Ordered By: Kirby Birch Cardiology Clear for Discharge (Routine); Ordered 01/22/18 Ordered By: John Young - Discharge Details Anticipated Discharge Date: 01/27/18 Discharge Comment: DC TO HOME - Physicians Team Primary Care Provider: UNKNOWN, Attending Provider: Kirby Birch Other Providers: John Young MD ; Ermias Yanes MD ; Mignon Crow ; Abbe Mendieta MD
== END 2018-01-27 15:56 | disposition home or self-care (01) ==
LOC: NEPE 12:05 → NEDA 14:16 → N06 14:50 → HCIS 16:50
PROVIDERS: ADMIT Hospitalist; ATTEND Hospitalist

== ENCOUNTER 2018-06-06 16:37 | Inpatient (IN) ==
--- NOTE | 2018-06-06 17:34 | ED ---
HPI General Chief complaint: Chest Pain Stated complaint: Chest pain,Sob Time Seen by Provider: 06/06/18 16:54 History of Present Illness HPI narrative: Patient is a 67-year-old male with a history of CKD stage IV preparing for dialysis presents emergency department for evaluation of chest pain shortness of breath and chest discomfort for the past 2 weeks gradually worsening. Patient states currently his discomfort is 4 out of 10 in the left side of his chest without radiation. Patient does have a history of coronary artery disease, had a stent placed about a year and a half ago. He states that he recently relocated here from [place] and he states that he had a cardiac catheterization about 4 months ago but does not know the results. Denies any abdominal pain nausea vomiting diarrhea constipation. Related Data Home Medications Medication Instructions Recorded Confirmed clopidogrel 75 mg PO DAILY 06/06/18 06/06/18 ergocalciferol (vitamin D2) 50,000 unit PO QWEEK 06/06/18 06/06/18 [Vitamin D2] furosemide 20 mg PO DAILY 06/06/18 06/06/18 glimepiride 4 mg PO QAM 06/06/18 06/06/18 tamsulosin 0.4 mg PO DAILY 06/06/18 06/06/18 Previous Rx's Medication Instructions Recorded aspirin 325 mg PO DAILY #30 tab 01/27/18 isosorbide mononitrate 60 mg PO DAILY@0700 #30 tab 01/27/18 atorvastatin 20 mg PO HS #30 tab 06/07/18 metoprolol succinate 50 mg PO DAILY #30 tab 06/07/18 Allergies Allergy/AdvReac Type Severity Reaction Status Date / Time No Known Allergies Allergy Verified 01/21/18 12:15 Review of Systems ROS: all other systems reviewed are negative PMFSH Family History Family History Other No family history of cardiac disease Social History Social History Substance History: No History of Abuse Second Hand Smoke Exposure: No Smoking Status: Never smoker How Often Do You Have a Drink Containing Alcohol: Never Recent Travel in [place] within the Last 8 Weeks: No Recent Out of Country Travel within the Last 8 Weeks: No Immunization History Tetanus Immunization: <5 Years Exam Narrative Exam Narrative: GENERAL: Well-developed well-nourished, no obvious distress. SKIN: Focused skin assessment warm/dry. HEAD: Atraumatic. Normocephalic. EYES: Pupils equal and round. No scleral icterus. No injection or drainage. ENT: No nasal bleeding or discharge. Mucous membranes pink and moist. NECK: Trachea midline. No JVD. CARDIOVASCULAR: Regular rate and rhythm. No murmur appreciated. 2+ bilateral equal lower extremity pulses, pulse may be a little bit weaker on the left side but is still present on the upper extremities, is probably secondary to an AV fistula which is got a palpable thrill in the left brachial. There are no murmurs gallops or rubs. RESPIRATORY: No accessory muscle use. Clear to auscultation. Breath sounds equal bilaterally. GASTROINTESTINAL: Abdomen soft, non-tender, nondistended. Hepatic and splenic margins not palpable. MUSCULOSKELETAL: No obvious deformities. No clubbing. No cyanosis. No edema. NEUROLOGICAL: Awake and alert. No obvious cranial nerve deficits. Motor grossly within normal limits. Normal speech. PSYCHIATRIC: Appropriate mood and affect; insight and judgment normal. Course Initial Documented Vital Signs Temperature 98.0 F 06/06/18 17:00 Pulse Rate 74 06/06/18 17:00 Respiratory Rate 24 06/06/18 17:00 Blood Pressure 170/80 H 06/06/18 17:00 Pulse Oximetry 96 06/06/18 17:00 Last Documented Vital Signs Temperature 97.4 F L 06/09/18 08:00 Pulse Rate 62 06/09/18 08:00 Respiratory Rate 18 06/09/18 08:00 Blood Pressure 153/74 H 06/09/18 08:00 Pulse Oximetry 96 06/09/18 08:00 Medical Decision Making MDM Narrative Medical decision making narrative: Patient's EKG shows sinus rhythm with sinus arrhythmia and first-degree heart block, left atrial enlargement, left anterior fascicular block, left ventricular hypertrophy. There is some minimal non- specific ST segment changes throughout the majority of the EKG including a minimal elevation of less than a half a millimeter of V1 which is upsloping and T wave inversions in V5 and V6. Comparison to January 21, 2018 there is no significant change. Patient room in the emergency department, has pain center of his chest that could represent ACS equivalent. Review the records shows that he did have a stress test in December which did show EF of 25% and no ischemic effect. His troponin at that time was steady at 0.3, today's troponin has increased to 0.6. And gets reasonable for him to come into the hospital for near consultation with cardiology again. I do not feel strongly about heparinizing him at this point. Patient also has several other complaints that were mirrored on his last ER visit including difficulty with swallowing. Medical Screen Exam Complete: Yes Emergency Medical Condition: Yes Lab Data Result diagrams: 06/09/18 06:55 06/09/18 06:55 Lab Results 06/06/18 06/06/18 06/06/18 Range/Units 17:26 17:26 20:04 WBC 8.9 (4.0-11.0) th/mm3 RBC 4.36 L (4.50-5.90) mil/mm3 Hgb 11.0 L (13.0-17.0) gm/dL Hct 33.9 L (39.0-51.0) % MCV 77.9 L (80.0-100.0) fL MCH 25.2 L (27.0-34.0) pg MCHC 32.4 (32.0-36.0) % RDW 19.3 H (11.6-17.2) % Plt Count 361 (150-450) th/mm3 MPV 8.0 (7.0-11.0) fL Neut % (Auto) 68.9 (16.0-70.0) % Lymph % (Auto) 22.1 (9.0-44.0) % Sunflower % (Auto) 6.6 (0.0-8.0) % Eos % (Auto) 1.5 (0.0-4.0) % Baso % (Auto) 0.9 (0.0-2.0) % Neut # (Auto) 6.1 (1.8-7.7) th/mm3 Lymph # (Auto) 2.0 (1.0-4.8) th/mm3 Sunflower # (Auto) 0.6 (0.0-0.9) th/mm3 Eos # (Auto) 0.1 (0.0-0.4) th/mm3 Baso # (Auto) 0.1 (0.0-0.2) th/mm3 WBC Differential . Differential Comment Auto diff final PT (9.8-11.6) sec INR Ratio APTT (23.4-31.7) sec Sodium 139 (136-145) meq/L Potassium 3.8 (3.5-5.1) meq/L Chloride 107 (98-107) meq/L Carbon Dioxide 24.6 (21.0-32.0) meq/L Anion Gap 7 (5-15) meq/L BUN 27 H (7-18) mg/dL Creatinine 3.00 H (0.60-1.30) mg/dL Estimated GFR 21 L (>89) mL/min POC Glucose 92 (68-110) mg/dl Random Glucose 94 (74-106) mg/dL Calcium 8.8 (8.5-10.1) mg/dL Total Bilirubin 0.6 (0.2-1.0) mg/dL AST 20 (15-37) U/L ALT 21 (12-78) U/L Alkaline Phosphatase 99 (45-117) U/L Troponin I 0.60 H (0.02-0.05) ng/mL Total Protein 8.1 (6.4-8.2) g/dL Albumin 3.4 (3.4-5.0) g/dL Triglycerides (42-150) mg/dL Cholesterol (120-200) mg/dL LDL Cholesterol, Calc (0-99) mg/dL HDL Cholesterol (40.0-60.0) mg/dL Cholesterol/HDL Ratio Ratio 06/06/18 06/07/18 06/07/18 Range/Units 23:55 01:26 06:45 WBC (4.0-11.0) th/mm3 RBC (4.50-5.90) mil/mm3 Hgb (13.0-17.0) gm/dL Hct (39.0-51.0) % MCV (80.0-100.0) fL MCH (27.0-34.0) pg MCHC (32.0-36.0) % RDW (11.6-17.2) % Plt Count (150-450) th/mm3 MPV (7.0-11.0) fL Neut % (Auto) (16.0-70.0) % Lymph % (Auto) (9.0-44.0) % Sunflower % (Auto) (0.0-8.0) % Eos % (Auto) (0.0-4.0) % Baso % (Auto) (0.0-2.0) % Neut # (Auto) (1.8-7.7) th/mm3 Lymph # (Auto) (1.0-4.8) th/mm3 Sunflower # (Auto) (0.0-0.9) th/mm3 Eos # (Auto) (0.0-0.4) th/mm3 Baso # (Auto) (0.0-0.2) th/mm3 WBC Differential Differential Comment PT 10.9 (9.8-11.6) sec INR 1.1 Ratio APTT 24.6 (23.4-31.7) sec Sodium (136-145) meq/L Potassium (3.5-5.1) meq/L Chloride (98-107) meq/L Carbon Dioxide (21.0-32.0) meq/L Anion Gap (5-15) meq/L BUN (7-18) mg/dL Creatinine (0.60-1.30) mg/dL Estimated GFR (>89) mL/min POC Glucose (68-110) mg/dl Random Glucose (74-106) mg/dL Calcium (8.5-10.1) mg/dL Total Bilirubin (0.2-1.0) mg/dL AST (15-37) U/L ALT (12-78) U/L Alkaline Phosphatase (45-117) U/L Troponin I 0.89 H* 0.95 H* (0.02-0.05) ng/mL Total Protein (6.4-8.2) g/dL Albumin (3.4-5.0) g/dL Triglycerides (42-150) mg/dL Cholesterol (120-200) mg/dL LDL Cholesterol, Calc (0-99) mg/dL HDL Cholesterol (40.0-60.0) mg/dL Cholesterol/HDL Ratio Ratio 06/07/18 06/07/18 06/07/18 Range/Units 06:45 06:45 12:19 WBC (4.0-11.0) th/mm3 RBC (4.50-5.90) mil/mm3 Hgb (13.0-17.0) gm/dL Hct (39.0-51.0) % MCV (80.0-100.0) fL MCH (27.0-34.0) pg MCHC (32.0-36.0) % RDW (11.6-17.2) % Plt Count (150-450) th/mm3 MPV (7.0-11.0) fL Neut % (Auto) (16.0-70.0) % Lymph % (Auto) (9.0-44.0) % Sunflower % (Auto) (0.0-8.0) % Eos % (Auto) (0.0-4.0) % Baso % (Auto) (0.0-2.0) % Neut # (Auto) (1.8-7.7) th/mm3 Lymph # (Auto) (1.0-4.8) th/mm3 Sunflower # (Auto) (0.0-0.9) th/mm3 Eos # (Auto) (0.0-0.4) th/mm3 Baso # (Auto) (0.0-0.2) th/mm3 WBC Differential Differential Comment PT (9.8-11.6) sec INR Ratio APTT 39.4 H D (23.4-31.7) sec Sodium 141 (136-145) meq/L Potassium 3.8 (3.5-5.1) meq/L Chloride 108 H (98-107) meq/L Carbon Dioxide 24.0 (21.0-32.0) meq/L Anion Gap 9 (5-15) meq/L BUN 24 H (7-18) mg/dL Creatinine 2.79 H (0.60-1.30) mg/dL Estimated GFR 23 L (>89) mL/min POC Glucose 67 L (68-110) mg/dl Random Glucose 70 L (74-106) mg/dL Calcium 8.2 L (8.5-10.1) mg/dL Total Bilirubin (0.2-1.0) mg/dL AST (15-37) U/L ALT (12-78) U/L Alkaline Phosphatase (45-117) U/L Troponin I (0.02-0.05) ng/mL Total Protein (6.4-8.2) g/dL Albumin (3.4-5.0) g/dL Triglycerides (42-150) mg/dL Cholesterol (120-200) mg/dL LDL Cholesterol, Calc (0-99) mg/dL HDL Cholesterol (40.0-60.0) mg/dL Cholesterol/HDL Ratio Ratio 06/07/18 06/07/18 06/07/18 Range/Units 14:09 17:18 22:00 WBC (4.0-11.0) th/mm3 RBC (4.50-5.90) mil/mm3 Hgb (13.0-17.0) gm/dL Hct (39.0-51.0) % MCV (80.0-100.0) fL MCH (27.0-34.0) pg MCHC (32.0-36.0) % RDW (11.6-17.2) % Plt Count (150-450) th/mm3 MPV (7.0-11.0) fL Neut % (Auto) (16.0-70.0) % Lymph % (Auto) (9.0-44.0) % Sunflower % (Auto) (0.0-8.0) % Eos % (Auto) (0.0-4.0) % Baso % (Auto) (0.0-2.0) % Neut # (Auto) (1.8-7.7) th/mm3 Lymph # (Auto) (1.0-4.8) th/mm3 Sunflower # (Auto) (0.0-0.9) th/mm3 Eos # (Auto) (0.0-0.4) th/mm3 Baso # (Auto) (0.0-0.2) th/mm3 WBC Differential Differential Comment PT (9.8-11.6) sec INR Ratio APTT 31.2 D (23.4-31.7) sec Sodium (136-145) meq/L Potassium (3.5-5.1) meq/L Chloride (98-107) meq/L Carbon Dioxide (21.0-32.0) meq/L Anion Gap (5-15) meq/L BUN (7-18) mg/dL Creatinine (0.60-1.30) mg/dL Estimated GFR (>89) mL/min POC Glucose 178 H 118 H (68-110) mg/dl Random Glucose (74-106) mg/dL Calcium (8.5-10.1) mg/dL Total Bilirubin (0.2-1.0) mg/dL AST (15-37) U/L ALT (12-78) U/L Alkaline Phosphatase (45-117) U/L Troponin I (0.02-0.05) ng/mL Total Protein (6.4-8.2) g/dL Albumin (3.4-5.0) g/dL Triglycerides (42-150) mg/dL Cholesterol (120-200) mg/dL LDL Cholesterol, Calc (0-99) mg/dL HDL Cholesterol (40.0-60.0) mg/dL Cholesterol/HDL Ratio Ratio 06/07/18 06/08/18 06/08/18 Range/Units 22:50 06:28 06:28 WBC 7.8 (4.0-11.0) th/mm3 RBC 4.42 L (4.50-5.90) mil/mm3 Hgb 11.0 L (13.0-17.0) gm/dL Hct 34.9 L (39.0-51.0) % MCV 79.1 L (80.0-100.0) fL MCH 25.0 L (27.0-34.0) pg MCHC 31.6 L (32.0-36.0) % RDW 19.2 H (11.6-17.2) % Plt Count 324 (150-450) th/mm3 MPV 8.0 (7.0-11.0) fL Neut % (Auto) (16.0-70.0) % Lymph % (Auto) (9.0-44.0) % Sunflower % (Auto) (0.0-8.0) % Eos % (Auto) (0.0-4.0) % Baso % (Auto) (0.0-2.0) % Neut # (Auto) (1.8-7.7) th/mm3 Lymph # (Auto) (1.0-4.8) th/mm3 Sunflower # (Auto) (0.0-0.9) th/mm3 Eos # (Auto) (0.0-0.4) th/mm3 Baso # (Auto) (0.0-0.2) th/mm3 WBC Differential Differential Comment PT (9.8-11.6) sec INR Ratio APTT 37.1 H (23.4-31.7) sec Sodium (136-145) meq/L Potassium (3.5-5.1) meq/L Chloride (98-107) meq/L Carbon Dioxide (21.0-32.0) meq/L Anion Gap (5-15) meq/L BUN (7-18) mg/dL Creatinine (0.60-1.30) mg/dL Estimated GFR (>89) mL/min POC Glucose (68-110) mg/dl Random Glucose (74-106) mg/dL Calcium (8.5-10.1) mg/dL Total Bilirubin (0.2-1.0) mg/dL AST (15-37) U/L ALT (12-78) U/L Alkaline Phosphatase (45-117) U/L Troponin I (0.02-0.05) ng/mL Total Protein (6.4-8.2) g/dL Albumin (3.4-5.0) g/dL Triglycerides 128 (42-150) mg/dL Cholesterol 131 (120-200) mg/dL LDL Cholesterol, Calc 70 (0-99) mg/dL HDL Cholesterol 35.0 L (40.0-60.0) mg/dL Cholesterol/HDL Ratio 3.74 Ratio 06/08/18 06/08/18 06/08/18 Range/Units 06:28 08:03 12:09 WBC (4.0-11.0) th/mm3 RBC (4.50-5.90) mil/mm3 Hgb (13.0-17.0) gm/dL Hct (39.0-51.0) % MCV (80.0-100.0) fL MCH (27.0-34.0) pg MCHC (32.0-36.0) % RDW (11.6-17.2) % Plt Count (150-450) th/mm3 MPV (7.0-11.0) fL Neut % (Auto) (16.0-70.0) % Lymph % (Auto) (9.0-44.0) % Sunflower % (Auto) (0.0-8.0) % Eos % (Auto) (0.0-4.0) % Baso % (Auto) (0.0-2.0) % Neut # (Auto) (1.8-7.7) th/mm3 Lymph # (Auto) (1.0-4.8) th/mm3 Sunflower # (Auto) (0.0-0.9) th/mm3 Eos # (Auto) (0.0-0.4) th/mm3 Baso # (Auto) (0.0-0.2) th/mm3 WBC Differential Differential Comment PT (9.8-11.6) sec INR Ratio APTT 42.4 H (23.4-31.7) sec Sodium (136-145) meq/L Potassium (3.5-5.1) meq/L Chloride (98-107) meq/L Carbon Dioxide (21.0-32.0) meq/L Anion Gap (5-15) meq/L BUN (7-18) mg/dL Creatinine (0.60-1.30) mg/dL Estimated GFR (>89) mL/min POC Glucose 107 126 H (68-110) mg/dl Random Glucose (74-106) mg/dL Calcium (8.5-10.1) mg/dL Total Bilirubin (0.2-1.0) mg/dL AST (15-37) U/L ALT (12-78) U/L Alkaline Phosphatase (45-117) U/L Troponin I (0.02-0.05) ng/mL Total Protein (6.4-8.2) g/dL Albumin (3.4-5.0) g/dL Triglycerides (42-150) mg/dL Cholesterol (120-200) mg/dL LDL Cholesterol, Calc (0-99) mg/dL HDL Cholesterol (40.0-60.0) mg/dL Cholesterol/HDL Ratio Ratio 06/08/18 06/08/18 06/08/18 Range/Units 12:21 17:04 18:18 WBC (4.0-11.0) th/mm3 RBC (4.50-5.90) mil/mm3 Hgb (13.0-17.0) gm/dL Hct (39.0-51.0) % MCV (80.0-100.0) fL MCH (27.0-34.0) pg MCHC (32.0-36.0) % RDW (11.6-17.2) % Plt Count (150-450) th/mm3 MPV (7.0-11.0) fL Neut % (Auto) (16.0-70.0) % Lymph % (Auto) (9.0-44.0) % Sunflower % (Auto) (0.0-8.0) % Eos % (Auto) (0.0-4.0) % Baso % (Auto) (0.0-2.0) % Neut # (Auto) (1.8-7.7) th/mm3 Lymph # (Auto) (1.0-4.8) th/mm3 Sunflower # (Auto) (0.0-0.9) th/mm3 Eos # (Auto) (0.0-0.4) th/mm3 Baso # (Auto) (0.0-0.2) th/mm3 WBC Differential Differential Comment PT (9.8-11.6) sec INR Ratio APTT 40.8 H (23.4-31.7) sec Sodium (136-145) meq/L Potassium (3.5-5.1) meq/L Chloride (98-107) meq/L Carbon Dioxide (21.0-32.0) meq/L Anion Gap (5-15) meq/L BUN (7-18) mg/dL Creatinine (0.60-1.30) mg/dL Estimated GFR (>89) mL/min POC Glucose 63 L 120 H (68-110) mg/dl Random Glucose (74-106) mg/dL Calcium (8.5-10.1) mg/dL Total Bilirubin (0.2-1.0) mg/dL AST (15-37) U/L ALT (12-78) U/L Alkaline Phosphatase (45-117) U/L Troponin I (0.02-0.05) ng/mL Total Protein (6.4-8.2) g/dL Albumin (3.4-5.0) g/dL Triglycerides (42-150) mg/dL Cholesterol (120-200) mg/dL LDL Cholesterol, Calc (0-99) mg/dL HDL Cholesterol (40.0-60.0) mg/dL Cholesterol/HDL Ratio Ratio 06/08/18 06/09/18 06/09/18 Range/Units 21:41 06:55 06:55 WBC 8.1 (4.0-11.0) th/mm3 RBC 4.41 L (4.50-5.90) mil/mm3 Hgb 11.1 L (13.0-17.0) gm/dL Hct 34.3 L (39.0-51.0) % MCV 77.7 L (80.0-100.0) fL MCH 25.1 L (27.0-34.0) pg MCHC 32.4 (32.0-36.0) % RDW 18.6 H (11.6-17.2) % Plt Count 356 (150-450) th/mm3 MPV 7.8 (7.0-11.0) fL Neut % (Auto) (16.0-70.0) % Lymph % (Auto) (9.0-44.0) % Sunflower % (Auto) (0.0-8.0) % Eos % (Auto) (0.0-4.0) % Baso % (Auto) (0.0-2.0) % Neut # (Auto) (1.8-7.7) th/mm3 Lymph # (Auto) (1.0-4.8) th/mm3 Sunflower # (Auto) (0.0-0.9) th/mm3 Eos # (Auto) (0.0-0.4) th/mm3 Baso # (Auto) (0.0-0.2) th/mm3 WBC Differential Differential Comment PT (9.8-11.6) sec INR Ratio APTT (23.4-31.7) sec Sodium 139 (136-145) meq/L Potassium 3.8 (3.5-5.1) meq/L Chloride 107 (98-107) meq/L Carbon Dioxide 25.4 (21.0-32.0) meq/L Anion Gap 7 (5-15) meq/L BUN 25 H (7-18) mg/dL Creatinine 2.82 H (0.60-1.30) mg/dL Estimated GFR 23 L (>89) mL/min POC Glucose 117 H (68-110) mg/dl Random Glucose 64 L (74-106) mg/dL Calcium 8.3 L (8.5-10.1) mg/dL Total Bilirubin (0.2-1.0) mg/dL AST (15-37) U/L ALT (12-78) U/L Alkaline Phosphatase (45-117) U/L Troponin I (0.02-0.05) ng/mL Total Protein (6.4-8.2) g/dL Albumin (3.4-5.0) g/dL Triglycerides (42-150) mg/dL Cholesterol (120-200) mg/dL LDL Cholesterol, Calc (0-99) mg/dL HDL Cholesterol (40.0-60.0) mg/dL Cholesterol/HDL Ratio Ratio 12/13/18 Range/Units 08:00 WBC (4.0-11.0) th/mm3 RBC (4.50-5.90) mil/mm3 Hgb (13.0-17.0) gm/dL Hct (39.0-51.0) % MCV (80.0-100.0) fL MCH (27.0-34.0) pg MCHC (32.0-36.0) % RDW (11.6-17.2) % Plt Count (150-450) th/mm3 MPV (7.0-11.0) fL Neut % (Auto) (16.0-70.0) % Lymph % (Auto) (9.0-44.0) % Sunflower % (Auto) (0.0-8.0) % Eos % (Auto) (0.0-4.0) % Baso % (Auto) (0.0-2.0) % Neut # (Auto) (1.8-7.7) th/mm3 Lymph # (Auto) (1.0-4.8) th/mm3 Sunflower # (Auto) (0.0-0.9) th/mm3 Eos # (Auto) (0.0-0.4) th/mm3 Baso # (Auto) (0.0-0.2) th/mm3 WBC Differential Differential Comment PT (9.8-11.6) sec INR Ratio APTT (23.4-31.7) sec Sodium (136-145) meq/L Potassium (3.5-5.1) meq/L Chloride (98-107) meq/L Carbon Dioxide (21.0-32.0) meq/L Anion Gap (5-15) meq/L BUN (7-18) mg/dL Creatinine (0.60-1.30) mg/dL Estimated GFR (>89) mL/min POC Glucose 78 (68-110) mg/dl Random Glucose (74-106) mg/dL Calcium (8.5-10.1) mg/dL Total Bilirubin (0.2-1.0) mg/dL AST (15-37) U/L ALT (12-78) U/L Alkaline Phosphatase (45-117) U/L Troponin I (0.02-0.05) ng/mL Total Protein (6.4-8.2) g/dL Albumin (3.4-5.0) g/dL Triglycerides (42-150) mg/dL Cholesterol (120-200) mg/dL LDL Cholesterol, Calc (0-99) mg/dL HDL Cholesterol (40.0-60.0) mg/dL Cholesterol/HDL Ratio Ratio Imaging Data Radiologist's impression: Chest X-Ray 06/06/18 17:23 CONCLUSION: Mild congestive heart failure pattern with probable basilar atelectasis. Discharge Plan Discharge Disposition Patient Disposition: ED Admit(ED Internal Use Only) Discharge Condition Condition: Stable Discharge Order Discharge Orders: Discharge Order (Routine); Ordered 06/09/18 Ordered By: Roxy Estrada Cardiology Clear for Discharge (Routine); Ordered 06/09/18 Ordered By: John Young ED Use Only Admit Order (Routine); Ordered 06/06/18 Ordered By: Memo Rodriguez Discharge Details Anticipated Discharge Date: 06/09/18 Physicians Team ED Provider: Memo Rodriguez Primary Care Provider: UNKNOWN, Attending Provider: Roxy Estrada Other Providers: Mignon,Mignon ; John Young ; Ermias Yanes Status ED Status: Left Department Discharge Information Discharge Date/Time: 06/07/18 11:14
[2018-06-06 17:52] LABS: Baso # (Auto) 0.1 th/mm3 (0.0-0.2); Baso % (Auto) 0.9 % (0.0-2.0); Eos # (Auto) 0.1 th/mm3 (0.0-0.4); Eos % (Auto) 1.5 % (0.0-4.0); Hematocrit 33.9 % (39.0-51.0); Lymph % (Auto) 22.1 % (9.0-44.0); Mean Corpuscular HGB Conc 32.4 % (32.0-36.0); Mean Corpuscular Hemoglobin 25.2 pg (27.0-34.0); Mean Corpuscular Volume 77.9 fL (80.0-100.0); Mono # (Auto) 0.6 th/mm3 (0.0-0.9); Mono % (Auto) 6.6 % (0.0-8.0); Neut # (Auto) 6.1 th/mm3 (1.8-7.7); Neut % (Auto) 68.9 % (16.0-70.0); Platelet Count 361 th/mm3 (150-450); Red Blood Count 4.36 mil/mm3 (4.50-5.90); Red Cell Distribution Width 19.3 % (11.6-17.2); White Blood Count 8.9 th/mm3 (4.0-11.0)
--- NOTE | 2018-06-06 18:06 | XR ---
EXAM DATE: 06/06/2018 5:48 PM EST AGE/SEX: 67 years / Male INDICATIONS: Mid chest pain. CLINICAL DATA: This is the patient's initial encounter. Patient reports that signs and symptoms have been present for 4 - 6 days and indicates a pain score of 6/10. MEDICAL/SURGICAL HISTORY: Cardiovascular disease. Coronary artery stent. COMPARISON: [facility] – [place], CHEST 1V SINGLE AP, 01/21/2018. . FINDINGS: A single AP view of the chest demonstrates cardiomegaly with mild edema pattern and small bilateral p leural effusions. No pneumothorax. No acute bony abnormality. CONCLUSION: Mild congestive heart failure pattern with probable basilar atelectasis. Electronically signed by: Julito Arango MD 06/06/2018 6:05 PM EST
[2018-06-06 18:15] LABS: Albumin 3.4 g/dL (3.4-5.0); Anion Gap 7 meq/L (5-15); Aspartate Aminotransferase 20 U/L (15-37); Blood Urea Nitrogen 27 mg/dL (7-18); Calcium 8.8 mg/dL (8.5-10.1); Carbon Dioxide 24.6 meq/L (21.0-32.0); Chloride 107 meq/L (98-107); Glomerular Filtration Rate 21 mL/min (>89); Glucose,Random 94 mg/dL (74-106); Potassium 3.8 meq/L (3.5-5.1); Sodium 139 meq/L (136-145)
[2018-06-06 18:16] LABS: Alanine Aminotransferase 21 U/L (12-78)
[2018-06-06 18:20] LABS: Alkaline Phosphatase 99 U/L (45-117); Total Protein 8.1 g/dL (6.4-8.2)
[2018-06-06] MEDS ORDERED: Bisacodyl 10 MG Supp RECTAL PRN (19:05)
[2018-06-06] MEDS ORDERED: Acetaminophen 325 MG Tablet PO PRN (19:05)
[2018-06-06] MEDS ORDERED: Dextrose 50% in Water 50 ML Vial IV.PUSH PRN (19:07)
[2018-06-06] MEDS: Insulin NovoLOG Aspart Correctional Sugar Inj SQ SCH (21:00)
[2018-06-06] MEDS: Senna/Docusate Sodium 8.6/50 MG Tablet PO SCH (23:16)
--- NOTE | 2018-06-06 23:19 | P.HPIM ---
History of Present Illness Service: [facility] Primary Care Physician: Gonzales Sampson . Chief Complaint: Chest pain and palpitations History of Present Illness: Mr. Garcia is a pleasant 67 year-old male with a history of coronary artery disease status post cardiac stenting approximately 1.5 years ago, diabetes mellitus, hyperlipidemia, chronic kidney disease stage IV, and hypertension who presented to the emergency room complaining of chest pain. The patient had similar symptoms in December 2017 and troponin I was 0.28 - 0.32 during that admission. His troponin during his emergency evaluation was 0.6 so and he was therefore admitted for observation. Patient was seen in his hospital room. He reports chest pain with palpitations over the past couple of weeks that have progressively worsened. He is unable to recall the name of any quality assurance/r&d lab technician that he follows as an outpatient but states that he sees Dr. Kim Sampson as his primary. He reports chest discomfort occurs on the left side of his chest without radiation, diaphoresis, shortness of breath, or nausea. The patient reports that he recently relocated here from [place], [place]. He tells me he had a quality assurance/r&d lab technician in [place] but has not followed up as an outpatient from his prior hospitalization with Dr. Young, the quality assurance/r&d lab technician he saw while he was here. He denies any family history of cardiac disease. Review of Systems All other systems reviewed negative except as stated in HPI PMFSH - History History Provided By: Patient - Medical History Medical History: Medical History (Last Reviewed 06/07/18 @ 01:29 by RE Moody) AV (arteriovenous fistula) Diabetes Hyperlipidemia Hypertension - Surgical History Surgical History: Surgical History (Last Reviewed 06/07/18 @ 01:29 by RE Moody) History of appendectomy History of nephrectomy Hx of cholecystectomy - Family History Family History: Family History (Last Updated 06/07/18 @ 01:30 by RE Moody) Other No family history of cardiac disease - Social History I have reviewed the patient's Social History: Yes - Tobacco History Second Hand Smoke Exposure: No Smoking Status: Never smoker - Alcohol History How Often Do You Have a Drink Containing Alcohol: Never - Substance Use History Substance History: No History of Abuse - Travel History Recent Travel in the [facility] Within the Last 8 Weeks: No Recent Travel Out of the Country Within the Last 8 Weeks: No - Immunization History Tetanus Immunization: <5 Years Medications and Allergies Active Medications: Active Medications Acetaminophen (Tylenol) 650 mg PO Q4H PRN PRN Reason: Temp > 100.4 Al Hydroxide/Mg Hydroxide (Milk Of Magnesia Liq) 30 ml PO Q12H PRN PRN Reason: Mild Constipation Aspirin (Ecotrin) 325 mg PO DAILY [facility] Bisacodyl (Dulcolax Supp) 10 mg RECTAL DAILY PRN PRN Reason: SEVERE CONSITIPATION Clopidogrel Bisulfate (Plavix) 75 mg PO DAILY [facility] Dextrose (D50w Vial) 50 ml IV.PUSH UNSCH PRN PRN Reason: PER HYPOGLYCEMIA PROTOCOL Furosemide (Lasix) 20 mg PO DAILY [facility] Glucagon (Glucagon Inj) 1 mg OTHER UNSCH PRN PRN Reason: for Hypoglycemia Protocol Insulin Aspart (Novolog Insulin Correctional Sugar Inj) 0 unit SQ ACHS [facility]; Protocol Last Admin: 06/06/18 21:00 Dose: Not Given Isosorbide Mononitrate (Imdur) 60 mg PO DAILY@0700 [facility] Lactulose (Lactulose Liq) 30 ml PO DAILY PRN PRN Reason: SEVERE CONSITIPATION Metoprolol Succinate (Toprol Xl) 25 mg PO DAILY [facility] Ondansetron HCl (Zofran Inj) 4 mg IV.PUSH Q6H PRN PRN Reason: NAUSEA OR VOMITING Senna/Docusate Sodium (Shaina-Colace) 1 tab PO BID [facility] Last Admin: 06/06/18 23:16 Dose: Not Given Sennosides (Senokot) 17.2 mg PO Q12H PRN PRN Reason: Moderate Constipation Sodium Chloride (Ns Flush) 2 ml IV.FLUSH BID [facility] Last Admin: 06/06/18 23:09 Dose: 2 ml Sodium Chloride (Ns Flush) 2 ml IV.FLUSH UNSCH PRN PRN Reason: FLUSH AFTER USING IV ACCESS Tamsulosin HCl (Flomax) 0.4 mg PO DAILY [facility] Allergies Allergy/AdvReac Type Severity Reaction Status Date / Time No Known Allergies Allergy Verified 01/21/18 12:15 Home Medications Medication Instructions Recorded Confirmed Type clopidogrel 75 mg PO DAILY 06/06/18 06/06/18 History ergocalciferol (vitamin D2) 50,000 unit PO QWEEK 06/06/18 06/06/18 History [Vitamin D2] furosemide 20 mg PO DAILY 06/06/18 06/06/18 History glimepiride 4 mg PO QAM 06/06/18 06/06/18 History metoprolol succinate 25 mg PO DAILY 06/06/18 06/06/18 History tamsulosin 0.4 mg PO DAILY 06/06/18 06/06/18 History Exam Vital signs: Vital Signs 06/06/18 17:00 06/06/18 19:00 Temperature 98.0 F Pulse Rate 74 74 Respiratory Rate 24 18 Blood Pressure 170/80 H 167/79 H Pulse Oximetry 96 99 Intake & Output 06/06/18 06/06/18 06/07/18 06:59 18:59 06:59 Weight 87.09 kg Narrative: GENERAL: This is a well-nourished, well-developed patient, in no apparent distress. SKIN: No rashes, ecchymoses or lesions. Cool and dry. HEAD: Atraumatic. Normocephalic. EYES: No scleral icterus. No injection or drainage. ENT: Nose without bleeding, purulent drainage. NECK: Trachea midline. No JVD or lymphadenopathy. CARDIOVASCULAR: Regular rate and rhythm without murmurs, gallops, or rubs. RESPIRATORY: Clear to auscultation. Breath sounds equal bilaterally. No wheezes , rales, or rhonchi. GASTROINTESTINAL: Abdomen soft, non-tender, nondistended. No guarding. MUSCULOSKELETAL: Extremities without clubbing, cyanosis, or edema. No calf tenderness. NEUROLOGICAL: Awake and alert. Motor and sensory grossly within normal limits. Normal speech. . Results - Labs CBC & Chem 7: 06/06/18 17:26 06/06/18 17:26 Labs: Short CBC 06/06/18 Range/Units 17:26 WBC 8.9 (4.0-11.0) th/mm3 Hgb 11.0 L (13.0-17.0) gm/dL Hct 33.9 L (39.0-51.0) % Plt Count 361 (150-450) th/mm3 BMP 06/06/18 17:26 Sodium 139 Potassium 3.8 Chloride 107 Carbon Dioxide 24.6 BUN 27 H Creatinine 3.00 H Calcium 8.8 Cardiac Enzymes 06/06/18 Range/Units 17:26 Troponin I 0.60 H (0.02-0.05) ng/mL Liver Function 06/06/18 Range/Units 17:26 Total Bilirubin 0.6 (0.2-1.0) mg/dL AST 20 (15-37) U/L ALT 21 (12-78) U/L Alkaline Phosphatase 99 (45-117) U/L Albumin 3.4 (3.4-5.0) g/dL - Imaging Impressions Chest X-Ray 06/06/18 17:23 CONCLUSION: Mild congestive heart failure pattern with probable basilar atelectasis. Caprini VTE Risk Assessment Caprini VTE Risk Assessment: Moderate/High Risk (score >= 2) Caprini Risk Assessment Model: Point Value = 1 Point Value = 2 Point Value = 3 Point Value = 5 Age 41-60 Minor surgery BMI > 25 kg/m2 Swollen legs Varicose veins or History of unexplained or recurrent spontaneous Oral contraceptives or hormone replacement Sepsis (< 1 month) Serious lung disease, including pneumonia (< 1 month) Abnormal pulmonary function Acute myocardial infarction Congestive heart failure (< 1 month) History of inflammatory bowel disease Medical patient at bed rest Age 61-74 Arthroscopic surgery Major open surgery (> 45 min) Laparoscopic surgery (> 45 min) Malignancy Confined to bed (> 72 hours) Immobilizing plaster cast Central venous access Age >= 75 History of VTE Family history of VTE Factor V Leiden Prothrombin [id number] Lupus anticoagulant Anticardiolipin antibodies Elevated serum homocysteine Heparin-induced thrombocytopenia Other congenital or acquired thrombophilia Stroke (< 1 month) Elective arthroplasty Hip, pelvis, or leg fracture Acute spinal cord injury (< 1 month) Prophylaxis Regimen: Total Risk Factor Score Risk Level Prophylaxis Regimen 0-1 Low Early ambulation 2 Moderate Order ONE of the following: *Sequential Compression Device (SCD) *Heparin 5000 units SQ BID 3-4 Higher Order ONE of the following medications: *Heparin 5000 units SQ TID *Enoxaparin/Lovenox 40 mg SQ daily (WT < 150 kg, CrCl > 30 mL/min) *Enoxaparin/Lovenox 30 mg SQ daily (WT < 150 kg, CrCl > 10-29 mL/min) *Enoxaparin/Lovenox 30 mg SQ BID (WT < 150 kg, CrCl > 30 mL/min) AND/OR *Sequential Compression Device (SCD) 5 or more Highest Order ONE of the following medications: *Heparin 5000 units SQ TID (Preferred with Epidurals) *Enoxaparin/Lovenox 40 mg SQ daily (WT < 150 kg, CrCl > 30 mL/min) *Enoxaparin/Lovenox 30 mg SQ daily (WT < 150 kg, CrCl > 10-29 mL/min) *Enoxaparin/Lovenox 30 mg SQ BID (WT < 150 kg, CrCl > 30 mL/min) AND *Sequential Compression Device (SCD) Assessment and Plan - Plan Mr. Garcia is a pleasant 67 year-old male with a history of coronary artery disease status post cardiac stenting approximately 1.5 years ago, diabetes mellitus, hyperlipidemia, chronic kidney disease stage IV, and hypertension who presented to the emergency room complaining of chest pain. NSTEMI -Initial troponin was 0.60 and repeat troponin that was resulted prior to my dictation was even higher at 0.89 -Start heparin drip with bolus -Consult cardiology - patient indicates that he does not see Dr. Young as an outpatient - will consult deputy coroner investigator quality assurance/r&d lab technician -NPO except meds -continue to trend cardiac enzymes CKD, stage IV, preparing for dialysis -BUN 27, creatinine 3.00, estimated GFR 21 - stable compared to prior labs -repeat labs in a.m. and follow trends in renal indices -avoid nephrotoxins -consult Dr. Yanes if needed Type 2 Diabetes Mellitus -Hold patient's glimepiride while n.p.o. - resume when no longer NPO -Accu-Cheks before meals and at bedtime with low-dose NovoLog sliding scale coverage -Hypoglycemia protocol -Monitor trends and blood glucose readings and adjust treatments as indicated Hypertension, hyperlipidemia, CAD -resume home medications DVT prophylaxis -heparin drip started Discussed Condition With: Patient, RN, and Dr. Ibarra
[2018-06-07] MEDS ORDERED: Heparin 10,000 UNITS/10 ML Vial (for IV use) IV.PUSH STA (00:55)
[2018-06-07] MEDS: Heparin Drip 25,000 UNIT/250 ML BAG IV.CONT PRN ×2 (01:27→22:03)
[2018-06-07 01:53] LABS: Activated Partial Thrombo Time 24.6 sec (23.4-31.7); INR 1.1 Ratio; Prothrombin Time 10.9 sec (9.8-11.6)
[2018-06-07] MEDS ORDERED: Heparin 10,000 UNITS/10 ML Vial (for IV use) IV.PUSH PRN ×2 (06:56)
[2018-06-07 07:14] LABS: Calcium 8.2 mg/dL (8.5-10.1); Potassium 3.8 meq/L (3.5-5.1)
[2018-06-07] MEDS: Insulin NovoLOG Aspart Correctional Sugar Inj SQ SCH ×4 (08:02→21:34)
[2018-06-07] MEDS: Isosorbide Mononitrate 60 MG ER 24HR Tablet (Imdur) PO SCH (08:18)
[2018-06-07] MEDS: Furosemide 20 MG Tablet PO SCH (08:18)
[2018-06-07] MEDS: Senna/Docusate Sodium 8.6/50 MG Tablet PO SCH ×2 (08:19→21:14)
--- NOTE | 2018-06-07 08:36 | ECG ---
Date Performed: 06/06/2018 Time Performed: 16:54:00 PTAGE: 67 years EKG: Sinus rhythm WITH FIRST DEGREE AV BLOCK POSSIBLE LEFT ATRIAL ENLARGEMENT INCOMPLETE RIGHT BUNDLE BRANCH BLOCK LEF T ANTERIOR FASCICULAR BLOCK LEFT VENTRICULAR HYPERTROPHY AND ST-T CHANGE ANTEROLATERAL MYOCARDIAL INF ARCTION INTERPRETATION BASED ON A DEFAULT AGE OF 40 YEARS PREVIOUS TRACING : 01/21/2018 23.43 DOCTOR: Angelo Mcclellan Interpretating Date/Time 06/07/2018 08:33:06
[2018-06-07] MEDS ORDERED: Influenza (Quadrivalent) Vaccine 0.5 ML Syringe IM ONE (13:00)
--- NOTE | 2018-06-07 14:20 | MB ---
cc: John Young MD DATE: 06/07/2018 REASON FOR CONSULTATION: Abnormal troponin levels, near syncope, chest pain. HISTORY OF PRESENT ILLNESS: The patient is a 67-year-old [place] male with a history of hypertension, diabetes, hyperlipidemia, coronary artery disease, severe chronic renal insufficiency, who presented to the emergency department with complaints of chest pain, palpitations, near syncope. For the past several days, he has had almost daily episodes of left lower chest discomfort described as "sharp" associated with shortness of breath lasting up to a few minutes. In the last few days, he has also had intermittent rapid palpitations occasionally associated with lightheadedness. Yesterday, the palpitations were associated with a fairly severe lightheadedness to the point of near syncope. Because his chest pains were becoming more severe and frequent, he came to the emergency department for further evaluation and treatment. He denies pedal edema, paroxysmal nocturnal dyspnea, fevers, pleurisy. The chest pains have had no relationship to exertion. PAST MEDICAL HISTORY: 1. Severe chronic renal insufficiency. 2. Coronary artery disease, status post myocardial infarction and percutaneous coronary intervention in [place] in 2015. On a nuclear stress test his last admission to [place] 01/22/2018, no ischemia was demonstrated. Echocardiogram 03/04/18 showed ejection fraction of 55%. 3. Diabetes. 4. Hyperlipidemia. 5. Hypertension. CARDIAC MEDICATIONS AT HOME: 1. Metoprolol succinate 25 mg daily. 2. Imdur 60 mg daily. 3. Furosemide 20 mg daily. 4. Clopidogrel 75 mg daily. 5. Aspirin 325 mg daily. ALLERGIES: NO KNOWN DRUG ALLERGIES. FAMILY HISTORY: Noncontributory. SOCIAL HISTORY: The patient denies any history of alcohol or tobacco abuse. REVIEW OF SYSTEMS: As in the history of present illness, otherwise negative or noncontributory. He also denies headache, abdominal pain, melena, dyspepsia, bright red blood per rectum. PHYSICAL EXAMINATION: VITAL SIGNS: His blood pressure 173/79 with a pulse of 63, respirations 18. GENERAL: He is a well-developed, well-nourished [place] male in no acute distress. NECK: Jugular venous pressure is normal. Carotid pulses are 2+ bilaterally and without bruits. CHEST: Reveals unlabored respiratory effort with clear lungs braden. CARDIAC: He has a regular rhythm and rate without S3, S4, or murmur. ABDOMEN: He has a soft, nontender abdomen. Bowel sounds are present. There is no definite hepatosplenomegaly. EXTREMITIES: Reveals no clubbing, cyanosis or edema. LABORATORY DATA: Includes WBC 8.9, hemoglobin 11.0, platelets 361. INR 1.1. Potassium 3.8, BUN 24, creatinine 2.79. Troponin 0.95. RADIOGRAPHIC STUDIES: Chest x-ray shows possible mild congestive heart failure. IMPRESSION: Overall atypical chest pains, near syncope in this 67-year-old [place] male with a history of coronary artery disease, severe chronic renal insufficiency, diabetes, hypertension, hyperlipidemia. Troponin levels are slightly abnormal, although in the setting of renal insufficiency. Electrocardiogram shows no definite significant acute ST segment changes. He did have a nuclear stress test 5 months ago showing no ischemia. I did discuss the possibility of cardiac catheterization with the patient, although with an increased risk of dye induced renal failure, especially with his underlying diabetes and renal insufficiency. With respect to his near-syncopal episode, he may indeed be having intermittent tachyarrhythmias. So far on monitoring he has demonstrated no arrhythmias. His echocardiogram 03/04/2018 showed an ejection fraction of 55% with akinesis of the distal septum and a small portion of the apex. RECOMMENDATIONS: 1. Would continue his usual home cardiac medications. 2. Unless the patient is willing to accept the risk of acute renal failure with a heart catheterization, would recommend continued medical therapy, especially in light of the atypical nature of his symptoms and a negative nuclear stress test earlier this year. 3. When he is discharged, would recommend an extended 3-week monitor to assess his palpitations and near syncope. MD MANUEL Rendon/aram , 01:43 PM , 01:54 PM JULIUS
--- NOTE | 2018-06-07 15:06 | P.PNIM ---
Subjective Interval history: Patient reports he does have some intermittent chest pain since he was admitted overnight. No active shortness of breath. No chills or fevers. Physical Exam Vital signs: Last Vital Signs Temp 97.9 F 06/07/18 11:20 Pulse 74 06/07/18 11:20 Resp 18 06/07/18 11:20 BP 180/80 H 06/07/18 11:20 Pulse Ox 98 06/07/18 11:20 Intake & Output 06/05/18 06/06/18 06/07/18 06/08/18 06:59 06:59 06:59 06:59 Weight 87.09 kg 83.3 kg Constitutional no acute distress Routine Respiratory Exam Present CTA bilaterally Routine Cardiovascular Exam Present RRR; Absent murmur Routine Abdominal Exam Present soft and normoactive bowel sounds; Absent tenderness and distended Routine Extremities Exam Absent cyanosis, clubbing and edema Routine Neurological Exam Present alert, oriented X3, moving all extremities and normal speech Results Labs CBC & Chem 7: 06/06/18 17:26 06/07/18 06:45 Imaging Imaging: Impressions Chest X-Ray 06/06/18 17:23 CONCLUSION: Mild congestive heart failure pattern with probable basilar atelectasis. Assessment and Plan Plan Mr. Garcia is a pleasant 67 year-old male with a history of coronary artery disease status post cardiac stenting approximately 1.5 years ago, diabetes mellitus, hyperlipidemia, chronic kidney disease stage IV, and hypertension who presented to the emergency room complaining of chest pain. Chest pain with elevated troponin in a patient with chronic kidney disease stage IV rule out underlying non-ST elevation [place] Patient with recent nuclear medicine stress tests in January which showed no ischemia Currently on aspirin, imdur, and heparin drip, beta-blockers Serial troponins showed elevation 0.[address] Young who has offered the patient a cardiac catheterization explained the risk for further renal failure based on his chronic kidney disease stage IV If patient declines we will continue with medical management Check fasting lipid profile and start statin Near syncope-continue telemetry monitoring to rule out any tach arrhythmias. Continue beta-ignacio, will need to follow-up with cardiology for continued monitoring as an outpatient. CKD, stage IV, preparing for dialysis -BUN 27, creatinine 3.00, estimated GFR 21 - stable compared to prior labs Creatinine remained stable overnight -avoid nephrotoxins -consult Dr. Hoskote if needed Type 2 Diabetes Mellitus, [id number], uncontrolled, with no acute complications. -Restart home glimepiride -Accu-Cheks before meals and at bedtime with low-dose NovoLog sliding scale coverage -Hypoglycemia protocol -Monitor trends and blood glucose readings and adjust treatments as indicated Hypertension, hyperlipidemia, CAD -resume home medications DVT prophylaxis -heparin drip Progress Note: Quality VTE Deep Vein Thrombosis/Pulmonary Embolism Present on Admission: No
[2018-06-07] MEDS ORDERED: amLODIPine 5 MG Tablet PO SCH (15:15)
[2018-06-08] MEDS: Isosorbide Mononitrate 60 MG ER 24HR Tablet (Imdur) PO SCH ×3 (06:00→17:02)
[2018-06-08 07:45] LABS: Hematocrit 34.9 % (39.0-51.0); Mean Corpuscular HGB Conc 31.6 % (32.0-36.0); Mean Corpuscular Volume 79.1 fL (80.0-100.0); Platelet Count 324 th/mm3 (150-450); Red Blood Count 4.42 mil/mm3 (4.50-5.90); Red Cell Distribution Width 19.2 % (11.6-17.2); White Blood Count 7.8 th/mm3 (4.0-11.0)
[2018-06-08] MEDS: Senna/Docusate Sodium 8.6/50 MG Tablet PO SCH ×2 (08:04→22:07)
[2018-06-08] MEDS: amLODIPine 5 MG Tablet PO SCH (08:04)
[2018-06-08] MEDS: Glimepiride 4 MG Tablet PO SCH (08:04)
[2018-06-08] MEDS: Furosemide 20 MG Tablet PO SCH (08:04)
[2018-06-08] MEDS: Insulin NovoLOG Aspart Correctional Sugar Inj SQ SCH ×4 (08:05→20:40)
[2018-06-08 08:19] LABS: Chol/HDL Ratio 3.74 Ratio
--- NOTE | 2018-06-08 10:57 | P.PNIM ---
Subjective Interval history: Reports he is still having intermittent chest pains. No active shortness of breath. He is discussing with his brother about proceeding with a cardiac catheterization. He would like to talk to cardiology again. Physical Exam Vital signs: Last Vital Signs Temp 97.8 F 06/08/18 08:00 Pulse 69 06/08/18 08:00 Resp 16 06/08/18 08:00 BP 161/71 H 06/08/18 08:00 Pulse Ox 98 06/08/18 08:00 Intake & Output 06/06/18 06/07/18 06/08/18 06/09/18 06:59 06:59 06:59 06:59 Intake Total 582 / 582 Balance 582 / 582 Weight 87.09 kg 76.8 kg Constitutional no acute distress Routine Respiratory Exam Present CTA bilaterally Routine Cardiovascular Exam Present RRR; Absent murmur Routine Abdominal Exam Present soft and normoactive bowel sounds; Absent tenderness and distended Routine Extremities Exam Absent cyanosis, clubbing and edema Routine Neurological Exam Present alert, oriented X3, moving all extremities and normal speech Results Labs CBC & Chem 7: 06/08/18 06:28 06/07/18 06:45 Assessment and Plan Plan Mr. Garcia is a pleasant 67 year-old male with a history of coronary artery disease status post cardiac stenting approximately 1.5 years ago, diabetes mellitus, hyperlipidemia, chronic kidney disease stage IV, and hypertension who presented to the emergency room complaining of chest pain. Chest pain with elevated troponin in a patient with chronic kidney disease stage IV rule out underlying non-ST elevation CT Patient with recent nuclear medicine stress tests in January which showed no ischemia Currently on aspirin, imdur, and heparin drip, beta-blockers Serial troponins showed elevation 0.[address] Young who has offered the patient a cardiac catheterization explained the risk for further renal failure based on his chronic kidney disease stage IV Patient is in the process of considering the catheterization and would like to discuss further with cardiology. If he declines today will need continued medical management. Lipid profile reviewed with LDL 70. Near syncope-continue telemetry monitoring to rule out any tach arrhythmias. Continue beta-ignacio, will need to follow-up with cardiology for continued monitoring as an outpatient. CKD, stage IV, -BUN 27, creatinine 3.00, estimated GFR 21 - stable compared to prior labs Creatinine remained stable overnight -avoid nephrotoxins -consult Dr. Yanes if needed if patient decides on catheterization. Type 2 Diabetes Mellitus, [id number], controlled, with no acute complications likely with underlying diabetic nephropathy. -Restart home glimepiride -Accu-Cheks before meals and at bedtime with low-dose NovoLog sliding scale coverage Hypertension, chronic, uncontrolledincrease Norvasc to 10 mg p.o. daily for better control of blood pressure. Increase metoprolol to 50 mg p.o. daily Hypertension, hyperlipidemia, CAD -resume home medications DVT prophylaxis -heparin drip Progress Note: Quality VTE Deep Vein Thrombosis/Pulmonary Embolism Present on Admission: No
--- NOTE | 2018-06-08 11:52 | P.PNCA ---
Subjective Interval history: Some sharp CP's, occasionally right sided, occasionally left lower chest area. No dyspnea, dizziness, palpitations. Medications and Allergies Active Medications: Active Medications Acetaminophen (Tylenol) 650 mg PO Q4H PRN PRN Reason: Temp > 100.4 Al Hydroxide/Mg Hydroxide (Milk Of Myranda Regan) 30 ml PO Q12H PRN PRN Reason: Mild Constipation Amlodipine Besylate (Norvasc) 10 mg PO DAILY [facility] Last Admin: 06/08/18 08:04 Dose: 10 mg Aspirin (Ecotrin) 325 mg PO DAILY [facility] Last Admin: 06/08/18 08:04 Dose: 325 mg Atorvastatin Calcium (Lipitor) 20 mg PO HS [facility] Last Admin: 06/07/18 21:13 Dose: Not Given Bisacodyl (Dulcolax Supp) 10 mg RECTAL DAILY PRN PRN Reason: SEVERE CONSITIPATION Clopidogrel Bisulfate (Plavix) 75 mg PO DAILY [facility] Last Admin: 06/08/18 08:04 Dose: 75 mg Dextrose (D50w Vial) 50 ml IV.PUSH UNSCH PRN PRN Reason: PER HYPOGLYCEMIA PROTOCOL Furosemide (Lasix) 20 mg PO DAILY [facility] Last Admin: 06/08/18 08:04 Dose: 20 mg Glimepiride (Amaryl) 4 mg PO DAILY [facility] Last Admin: 06/08/18 08:04 Dose: 4 mg Glucagon (Glucagon Inj) 1 mg OTHER UNSCH PRN PRN Reason: for Hypoglycemia Protocol Heparin Sodium (Porcine) (Heparin Inj) 2,500 units IV.PUSH UNSCH PRN PRN Reason: aPTT 25-39 Heparin Sodium (Porcine) (Heparin Inj) 5,000 units IV.PUSH UNSCH PRN PRN Reason: aPTT < 25 Heparin Sodium/Dextrose (Heparin/D5w 25,000 U/250 Ml) 25,000 unit in 250 mls @ 0 mls/hr IV.CONT TITRATE PRN; Protocol PRN Reason: Per Protocol Last Titration: 06/08/18 06:00 Dose: 1,200 units/hr, 12 mls/hr Insulin Aspart (Novolog Insulin Correctional Sugar Inj) 0 unit SQ ACHS [facility]; Protocol Last Admin: 06/08/18 08:05 Dose: Not Given Isosorbide Mononitrate (Imdur) 60 mg PO DAILY@0700 [facility] Last Admin: 06/08/18 06:00 Dose: 60 mg Lactulose (Lactulose Liq) 30 ml PO DAILY PRN PRN Reason: SEVERE CONSITIPATION Metoprolol Succinate (Toprol Xl) 50 mg PO DAILY [facility] Last Admin: 06/08/18 08:04 Dose: 50 mg Ondansetron HCl (Zofran Inj) 4 mg IV.PUSH Q6H PRN PRN Reason: NAUSEA OR VOMITING Senna/Docusate Sodium (Shaina-Colace) 1 tab PO BID [facility] Last Admin: 06/08/18 08:04 Dose: 1 tab Sennosides (Senokot) 17.2 mg PO Q12H PRN PRN Reason: Moderate Constipation Sodium Chloride (Ns Flush) 2 ml IV.FLUSH BID [facility] Last Admin: 06/08/18 08:05 Dose: 2 ml Sodium Chloride (Ns Flush) 2 ml IV.FLUSH UNSCH PRN PRN Reason: FLUSH AFTER USING IV ACCESS Tamsulosin HCl (Flomax) 0.4 mg PO DAILY [facility] Last Admin: 06/08/18 08:04 Dose: 0.4 mg Allergies Allergy/AdvReac Type Severity Reaction Status Date / Time No Known Allergies Allergy Verified 01/21/18 12:15 Home Medications Medication Instructions Recorded Confirmed Type clopidogrel 75 mg PO DAILY 06/06/18 06/06/18 History ergocalciferol (vitamin D2) 50,000 unit PO QWEEK 06/06/18 06/06/18 History [Vitamin D2] furosemide 20 mg PO DAILY 06/06/18 06/06/18 History glimepiride 4 mg PO QAM 06/06/18 06/06/18 History metoprolol succinate 25 mg PO DAILY 06/06/18 06/06/18 History tamsulosin 0.4 mg PO DAILY 06/06/18 06/06/18 History Physical Exam Vital signs: Vital Signs 06/07/18 16:00 06/07/18 17:21 06/07/18 20:00 Temperature 97.2 F L 97.7 F Pulse Rate 81 85 Respiratory Rate 18 17 Blood Pressure 156/70 H 155/72 H Pulse Oximetry 97 98 98 06/08/18 00:00 06/08/18 04:00 06/08/18 08:00 Temperature 97.8 F 97.8 F 97.8 F Pulse Rate 68 61 69 Respiratory Rate 19 18 16 Blood Pressure 158/74 H 154/90 H 161/71 H Pulse Oximetry 97 98 98 Intake & Output 06/07/18 06/08/18 06/08/18 18:59 06:59 18:59 Intake Total 582 / 582 Balance 582 / 582 Weight 83.3 kg 76.8 kg Intake: IV 342 / 342 Heparin/D5W 25,000 U/250 mL 25, 342 / 342 000 unit In 250 ml @ Per Protocol IV.CONT TITRATE PRN Rx #:[id number] Oral 240 / 240 Other: # Voids 2 # Urine Diapers 500 Date of Last Bowel Movement 06/07/18 Weight On Admission 83.3 kg - Constitutional no acute distress - Routine Neck Exam Absent: JVD - Routine Respiratory Exam Present: CTA bilaterally - Routine Cardiovascular Exam Present: RRR, S1, S2. Absent: murmur, gallop - Routine Abdominal Exam Present: soft, normoactive bowel sounds. Absent: tenderness, organomegaly - Routine Extremities Exam Absent: cyanosis, clubbing, edema Results 06/08/18 06:28 06/07/18 06:45 Cardiac Enzymes 06/06/18 06/06/18 06/07/18 Range/Units 17:26 23:55 06:45 AST 20 (15-37) U/L Troponin I 0.60 H 0.89 H* 0.95 H* (0.02-0.05) ng/mL Coagulation 06/07/18 06/07/18 06/07/18 Range/Units 01:26 06:45 14:09 PT 10.9 (9.8-11.6) sec APTT 24.6 39.4 H D 31.2 D (23.4-31.7) sec 06/07/18 06/08/18 Range/Units 22:50 06:28 PT (9.8-11.6) sec APTT 37.1 H 42.4 H (23.4-31.7) sec Lipids 06/08/18 Range/Units 06:28 Triglycerides 128 (42-150) mg/dL Cholesterol 131 (120-200) mg/dL HDL Cholesterol 35.0 L (40.0-60.0) mg/dL Cholesterol/HDL Ratio 3.74 Ratio CBC 06/06/18 06/08/18 Range/Units 17:26 06:28 WBC 8.9 7.8 (4.0-11.0) th/mm3 RBC 4.36 L 4.42 L (4.50-5.90) mil/mm3 Hgb 11.0 L 11.0 L (13.0-17.0) gm/dL Hct 33.9 L 34.9 L (39.0-51.0) % Plt Count 361 324 (150-450) th/mm3 Neut # (Auto) 6.1 (1.8-7.7) th/mm3 Lymph # (Auto) 2.0 (1.0-4.8) th/mm3 Ritchie # (Auto) 0.6 (0.0-0.9) th/mm3 Eos # (Auto) 0.1 (0.0-0.4) th/mm3 Baso # (Auto) 0.1 (0.0-0.2) th/mm3 Comprehensive Metabolic Panel 06/06/18 06/07/18 Range/Units 17:26 06:45 Sodium 139 141 (136-145) meq/L Potassium 3.8 3.8 (3.5-5.1) meq/L Chloride 107 108 H (98-107) meq/L Carbon Dioxide 24.6 24.0 (21.0-32.0) meq/L BUN 27 H 24 H (7-18) mg/dL Creatinine 3.00 H 2.79 H (0.60-1.30) mg/dL Calcium 8.8 8.2 L (8.5-10.1) mg/dL AST 20 (15-37) U/L ALT 21 (12-78) U/L Alkaline Phosphatase 99 (45-117) U/L Total Protein 8.1 (6.4-8.2) g/dL Albumin 3.4 (3.4-5.0) g/dL Intake and Output 06/07/18 06/08/18 06/08/18 22:59 06:59 14:59 Intake Total 250 / 250 332 / 332 Balance 250 / 250 332 / 332 Intake: IV 250 / 250 92 / 92 Heparin/D5W 25,000 U/250 mL 25, 250 / 250 92 / 92 000 unit In 250 ml @ Per Protocol IV.CONT TITRATE PRN Rx #:[id number] Oral 240 / 240 Other: # Voids 2 # Urine Diapers 500 Date of Last Bowel Movement 06/07/18 Weight 76.8 kg - Imaging and Cardiology Imaging: Impressions Chest X-Ray 06/06/18 17:23 CONCLUSION: Mild congestive heart failure pattern with probable basilar atelectasis. Assessment and Plan - Assessment (1) Coronary artery disease Code(s): I25.10 - Atherosclerotic heart disease of [place] coronary artery without angina pectoris Status: Chronic Plan: Still with occasional overall atypical CP's. Patient not good candidate for coronary angiography with the increased risk of dye-induced renal failure. No ischemia on nuclear stress testing earlier this year. REC continued medical therapy. Will discuss further with his son as well. Increase beta ignacio dosing. (2) Near syncope Code(s): R55 - Syncope and collapse Status: Acute Plan: Stable overnight. No further dizziness or near syncope. Monitoring uneventful. Recommend set up 3 week monitor upon discharge. (3) Hypertension Code(s): I10 - Essential (primary) hypertension Status: Chronic Plan: Overall suboptimal BP control. Recommend increase metoprolol dosing. - Plan Code Status: full Discussed Condition With: patient and son (1) Coronary artery disease Qualifiers: Coronary Disease-Associated Artery/Lesion type: [place] artery [place] vs. transplanted heart: [place] heart Associated angina: angina presence unspecified Qualified Code(s): I25.10 - Atherosclerotic heart disease of [place] coronary artery without angina pectoris (3) Hypertension Qualifiers: Hypertension type: essential hypertension Qualified Code(s): I10 - Essential (primary) hypertension
--- NOTE | 2018-06-08 15:18 | P.CONNP ---
<Jess Narayan - Last Filed: 06/08/18 15:19> History of Present Illness Reason for Consult: CKD Primary Care Provider: UNKNOWN Chief Complaint: Chest pain and palpitations History of Present Illness: Patient is a 67 year old male with a history of coronary artery disease s /p stent placement, right nephrectomy, diabetes mellitus, hyperlipidemia, chronic kidney disease stage IV, and hypertension who presented to the emergency room 06/06 complaining of chest pain. Patient was admitted for observation and per patient, possibly being discharged tomorrow. Patient reports chest pain with palpitations over the past couple of weeks that have progressively gotten worse. Patient stated chest pain hasn't improved much since admission. Patient denies shortness of breath, nausea/vomiting, diarrhea. Patient denies tobacco, alcohol, or illicit drug use. Nephrology was consulted due to patient having Chronic Kidney Disease Stage IV. Patient has an AVF in the left arm ready for use. Patient's renal function has slightly improved since admission. Patient is not aware of baseline but office labs from 12/2017 shows eGFR of 26 and Creatinine of 2.48. 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 He recently had an appointment with Dr. Yanes but was a no show. Patient follows with Dr. Kim Sampson as his primary. Review of Systems All other systems reviewed negative except as stated in HPI PMFSH - History History Provided By: Patient - Medical History Medical History: Medical History (Last Reviewed 06/07/18 @ 01:29 by RE Moody) AV (arteriovenous fistula) Diabetes Hyperlipidemia Hypertension - Surgical History Surgical History: Surgical History (Last Reviewed 06/07/18 @ 01:29 by RE Moody) History of appendectomy History of nephrectomy Hx of cholecystectomy - Family History Family History: Family History (Last Updated 06/07/18 @ 01:30 by RE Moody) Other No family history of cardiac disease - Tobacco History Second Hand Smoke Exposure: No Tobacco Use In Past 30 Days: No Smoking Status: Never smoker - Alcohol History How Often Do You Have a Drink Containing Alcohol: Never - Substance Use History Substance History: No History of Abuse - Travel History Recent Travel in the [place] Within the Last 8 Weeks: No Recent Travel Out of the Country Within the Last 8 Weeks: No - Immunization History Tetanus Immunization: >5 Years Hx Influenza Vaccine This Season: No Medications and Allergies Allergies Allergy/AdvReac Type Severity Reaction Status Date / Time No Known Allergies Allergy Verified 01/21/18 12:15 Home Medications Medication Instructions Recorded Confirmed Type clopidogrel 75 mg PO DAILY 06/06/18 06/06/18 History ergocalciferol (vitamin D2) 50,000 unit PO QWEEK 06/06/18 06/06/18 History [Vitamin D2] furosemide 20 mg PO DAILY 06/06/18 06/06/18 History glimepiride 4 mg PO QAM 06/06/18 06/06/18 History metoprolol succinate 25 mg PO DAILY 06/06/18 06/06/18 History tamsulosin 0.4 mg PO DAILY 06/06/18 06/06/18 History Active Medications: Active Medications Acetaminophen (Tylenol) 650 mg PO Q4H PRN PRN Reason: Temp > 100.4 Al Hydroxide/Mg Hydroxide (Milk Of Myradna Regan) 30 ml PO Q12H PRN PRN Reason: Mild Constipation Amlodipine Besylate (Norvasc) 10 mg PO DAILY [facility] Last Admin: 06/08/18 08:04 Dose: 10 mg Aspirin (Ecotrin) 325 mg PO DAILY [facility] Last Admin: 06/08/18 08:04 Dose: 325 mg Atorvastatin Calcium (Lipitor) 20 mg PO HS [facility] Last Admin: 06/07/18 21:13 Dose: Not Given Bisacodyl (Dulcolax Supp) 10 mg RECTAL DAILY PRN PRN Reason: SEVERE CONSITIPATION Clopidogrel Bisulfate (Plavix) 75 mg PO DAILY [facility] Last Admin: 06/08/18 08:04 Dose: 75 mg Dextrose (D50w Vial) 50 ml IV.PUSH UNSCH PRN PRN Reason: PER HYPOGLYCEMIA PROTOCOL Furosemide (Lasix) 20 mg PO DAILY [facility] Last Admin: 06/08/18 08:04 Dose: 20 mg Glimepiride (Amaryl) 4 mg PO DAILY [facility] Last Admin: 06/08/18 08:04 Dose: 4 mg Glucagon (Glucagon Inj) 1 mg OTHER UNSCH PRN PRN Reason: for Hypoglycemia Protocol Heparin Sodium (Porcine) (Heparin Inj) 2,500 units IV.PUSH UNSCH PRN PRN Reason: aPTT 25-39 Heparin Sodium (Porcine) (Heparin Inj) 5,000 units IV.PUSH UNSCH PRN PRN Reason: aPTT < 25 Insulin Aspart (Novolog Insulin Correctional Sugar Inj) 0 unit SQ ACHS [facility]; Protocol Last Admin: 06/08/18 12:09 Dose: Not Given Isosorbide Mononitrate (Imdur) 120 mg PO DAILY@0700 [facility] Lactulose (Lactulose Liq) 30 ml PO DAILY PRN PRN Reason: SEVERE CONSITIPATION Metoprolol Succinate (Toprol Xl) 100 mg PO DAILY [facility] Ondansetron HCl (Zofran Inj) 4 mg IV.PUSH Q6H PRN PRN Reason: NAUSEA OR VOMITING Senna/Docusate Sodium (Shaina-Colace) 1 tab PO BID [facility] Last Admin: 06/08/18 08:04 Dose: 1 tab Sennosides (Senokot) 17.2 mg PO Q12H PRN PRN Reason: Moderate Constipation Sodium Chloride (Ns Flush) 2 ml IV.FLUSH BID [facility] Last Admin: 06/08/18 08:05 Dose: 2 ml Sodium Chloride (Ns Flush) 2 ml IV.FLUSH UNSCH PRN PRN Reason: FLUSH AFTER USING IV ACCESS Tamsulosin HCl (Flomax) 0.4 mg PO DAILY [facility] Last Admin: 06/08/18 08:04 Dose: 0.4 mg Exam Vital signs: Vital Signs 06/07/18 16:00 06/07/18 17:21 06/07/18 20:00 Temperature 97.2 F L 97.7 F Pulse Rate 81 85 Respiratory Rate 18 17 Blood Pressure 156/70 H 155/72 H Pulse Oximetry 97 98 98 06/08/18 00:00 06/08/18 04:00 06/08/18 08:00 Temperature 97.8 F 97.8 F 97.8 F Pulse Rate 68 61 69 Respiratory Rate 19 18 16 Blood Pressure 158/74 H 154/90 H 161/71 H Pulse Oximetry 97 98 98 06/08/18 12:00 Temperature 97.6 F Pulse Rate 66 Respiratory Rate 18 Blood Pressure 156/83 H Pulse Oximetry 97 Intake & Output 06/07/18 06/08/18 06/08/18 18:59 06:59 18:59 Intake Total 582 / 582 250 / 250 Balance 582 / 582 250 / 250 Weight 83.3 kg 76.8 kg Intake: IV 342 / 342 250 / 250 Heparin/D5W 25,000 U/250 mL 25, 342 / 342 250 / 250 000 unit In 250 ml @ Per Protocol IV.CONT TITRATE PRN Rx #:[id number] Oral 240 / 240 Other: # Voids 2 # Urine Diapers 500 Date of Last Bowel Movement 06/07/18 Weight On Admission 83.3 kg - Constitutional no acute distress - Routine HEENT Exam Head: Present: normocephalic Eye: Present: EOMI, PERRL ENT: Present: mucous membranes moist - Routine Neck Exam Present: trachea midline. Absent: JVD, tracheal deviation - Routine Respiratory Exam Present: CTA bilaterally. Absent: accessory muscle use - Routine Cardiovascular Exam Present: RRR. Absent: murmur - Routine Abdominal Exam Present: soft, normoactive bowel sounds - Routine Extremities Exam Present: pulses intact, AV fistula. Absent: edema - Routine Neurological Exam Present: alert, oriented X3 Results - Lab Results 06/08/18 06:28 06/07/18 06:45 Most recent lab results Calcium 8.2 mg/dL (8.5-10.1) L 06/07/18 06:45 Assessment and Plan - Assessment (1) CKD (chronic kidney disease), stage IV Code(s): N18.4 - Chronic kidney disease, stage 4 (severe) Status: Chronic Plan: Patient's renal function has slightly improved since admission. Patient is not aware of baseline but office labs from 12/2017 shows eGFR of 26 and Creatinine of 2.48. Patient has an AVF in the left arm ready for use. Avoid nephrotoxic agents. Monitor fluid and electrolytes. (2) Coronary artery disease Code(s): I25.10 - Atherosclerotic heart disease of [place] coronary artery without angina pectoris Status: Chronic Plan: Per cardiology, patient not good candidate for coronary angiography with the increased risk of dye-induced renal failure. No ischemia on nuclear stress testing earlier this year. (3) Hypertension Code(s): I10 - Essential (primary) hypertension Status: Chronic Plan: Monitor BP. Patient on metoprolol. (4) Hyperlipidemia Code(s): E78.5 - Hyperlipidemia, unspecified Status: Chronic Plan: Patient on Atorvastatin. <Ermias Yanes - Last Filed: 06/08/18 19:16> History of Present Illness Primary Care Provider: UNKNOWN [facility] - Medical History Medical History: Medical History (Last Reviewed 06/07/18 @ 01:29 by RE Moody) AV (arteriovenous fistula) Diabetes Hyperlipidemia Hypertension - Surgical History Surgical History: Surgical History (Last Reviewed 06/07/18 @ 01:29 by RE Moody) History of appendectomy History of nephrectomy Hx of cholecystectomy - Family History Family History: Family History (Last Updated 06/07/18 @ 01:30 by RE Moody) Other No family history of cardiac disease Medications and Allergies Active Medications: Active Medications Acetaminophen (Tylenol) 650 mg PO Q4H PRN PRN Reason: Temp > 100.4 Al Hydroxide/Mg Hydroxide (Milk Of Myranda [place]) 30 ml PO Q12H PRN PRN Reason: Mild Constipation Amlodipine Besylate (Norvasc) 10 mg PO DAILY [facility] Last Admin: 06/08/18 08:04 Dose: 10 mg Aspirin (Ecotrin) 325 mg PO DAILY [facility] Last Admin: 06/08/18 08:04 Dose: 325 mg Atorvastatin Calcium (Lipitor) 20 mg PO HS [facility] Last Admin: 06/07/18 21:13 Dose: Not Given Bisacodyl (Dulcolax Supp) 10 mg RECTAL DAILY PRN PRN Reason: SEVERE CONSITIPATION Clopidogrel Bisulfate (Plavix) 75 mg PO DAILY [facility] Last Admin: 06/08/18 08:04 Dose: 75 mg Dextrose (D50w Vial) 50 ml IV.PUSH UNSCH PRN PRN Reason: PER HYPOGLYCEMIA PROTOCOL Furosemide (Lasix) 20 mg PO DAILY [facility] Last Admin: 06/08/18 08:04 Dose: 20 mg Glimepiride (Amaryl) 4 mg PO DAILY [facility] Last Admin: 06/08/18 08:04 Dose: 4 mg Glucagon (Glucagon Inj) 1 mg OTHER UNSCH PRN PRN Reason: for Hypoglycemia Protocol Heparin Sodium (Porcine) (Heparin Inj) 2,500 units IV.PUSH UNSCH PRN PRN Reason: aPTT 25-39 Heparin Sodium (Porcine) (Heparin Inj) 5,000 units IV.PUSH UNSCH PRN PRN Reason: aPTT < 25 Insulin Aspart (Novolog Insulin Correctional Sugar Inj) 0 unit SQ ACHS [facility]; Protocol Last Admin: 06/08/18 18:19 Dose: Not Given Isosorbide Mononitrate (Imdur) 120 mg PO DAILY@0700 [facility] Last Admin: 06/08/18 17:02 Dose: Not Given Lactulose (Lactulose Liq) 30 ml PO DAILY PRN PRN Reason: SEVERE CONSITIPATION Metoprolol Succinate (Toprol Xl) 100 mg PO DAILY [facility] Ondansetron HCl (Zofran Inj) 4 mg IV.PUSH Q6H PRN PRN Reason: NAUSEA OR VOMITING Senna/Docusate Sodium (Shaina-Colace) 1 tab PO BID [facility] Last Admin: 06/08/18 08:04 Dose: 1 tab Sennosides (Senokot) 17.2 mg PO Q12H PRN PRN Reason: Moderate Constipation Sodium Chloride (Ns Flush) 2 ml IV.FLUSH BID [facility] Last Admin: 06/08/18 08:05 Dose: 2 ml Sodium Chloride (Ns Flush) 2 ml IV.FLUSH UNSCH PRN PRN Reason: FLUSH AFTER USING IV ACCESS Tamsulosin HCl (Flomax) 0.4 mg PO DAILY [facility] Last Admin: 06/08/18 08:04 Dose: 0.4 mg Exam Vital signs: Vital Signs 06/07/18 20:00 06/08/18 00:00 06/08/18 04:00 Temperature 97.7 F 97.8 F 97.8 F Pulse Rate 85 68 61 Respiratory Rate 17 19 18 Blood Pressure 155/72 H 158/74 H 154/90 H Pulse Oximetry 98 97 98 06/08/18 08:00 06/08/18 12:00 06/08/18 16:00 Temperature 97.8 F 97.6 F 97.5 F L Pulse Rate 69 66 63 Respiratory Rate 16 18 18 Blood Pressure 161/71 H 156/83 H 146/83 H Pulse Oximetry 98 97 98 Intake & Output 06/08/18 06/08/18 06/09/18 06:59 18:59 06:59 Intake Total 582 / 582 950 / 950 Output Total 1000 / 1000 Balance 582 / 582 -50 / -50 Weight 76.8 kg Intake: IV 342 / 342 250 / 250 Heparin/D5W 25,000 U/250 mL 25, 342 / 342 250 / 250 000 unit In 250 ml @ Per Protocol IV.CONT TITRATE PRN Rx #:[id number] Oral 240 / 240 700 / 700 Output: Urine 1000 / 1000 Other: # Voids 2 # Urine Diapers 500 Date of Last Bowel Movement 06/07/18 # Bowel Movements 0 Results - Lab Results 06/08/18 06:28 06/07/18 06:45 Most recent lab results Calcium 8.2 mg/dL (8.5-10.1) L 06/07/18 06:45 Assessment and Plan - Assessment (1) CKD (chronic kidney disease), stage IV Code(s): N18.4 - Chronic kidney disease, stage 4 (severe) Status: Chronic (2) Coronary artery disease Code(s): I25.10 - Atherosclerotic heart disease of [place] coronary artery without angina pectoris Status: Chronic (3) Hypertension Code(s): I10 - Essential (primary) hypertension Status: Chronic (4) Hyperlipidemia Code(s): E78.5 - Hyperlipidemia, unspecified Status: Chronic - Attending Attestation patient was seen and examined. I agree with above assessment and plan. He can be discharged from renal standpoint if no cardiology workup is planned. <Jess Narayan - Last Filed: 06/08/18 15:19> (2) Coronary artery disease Qualifiers: Coronary Disease-Associated Artery/Lesion type: [place] artery [place] vs. transplanted heart: [place] heart Associated angina: angina presence unspecified Qualified Code(s): I25.10 - Atherosclerotic heart disease of [place] coronary artery without angina pectoris (3) Hypertension Qualifiers: Hypertension type: essential hypertension Qualified Code(s): I10 - Essential (primary) hypertension (4) Hyperlipidemia Qualifiers: Hyperlipidemia type: unspecified Qualified Code(s): E78.5 - Hyperlipidemia, unspecified <Ermias Yanes - Last Filed: 06/08/18 19:16> (2) Coronary artery disease Qualifiers: Coronary Disease-Associated Artery/Lesion type: [place] artery [place] vs. transplanted heart: [place] heart Associated angina: angina presence unspecified Qualified Code(s): I25.10 - Atherosclerotic heart disease of [place] coronary artery without angina pectoris (3) Hypertension Qualifiers: Hypertension type: essential hypertension Qualified Code(s): I10 - Essential (primary) hypertension (4) Hyperlipidemia Qualifiers: Hyperlipidemia type: unspecified Qualified Code(s): E78.5 - Hyperlipidemia, unspecified
[2018-06-09] MEDS: Isosorbide Mononitrate 60 MG ER 24HR Tablet (Imdur) PO SCH (06:07)
[2018-06-09 07:33] LABS: Hematocrit 34.3 % (39.0-51.0); Hemoglobin 11.1 gm/dL (13.0-17.0); Mean Corpuscular HGB Conc 32.4 % (32.0-36.0); Mean Corpuscular Hemoglobin 25.1 pg (27.0-34.0); Mean Corpuscular Volume 77.7 fL (80.0-100.0); Mean Platelet Volume 7.8 fL (7.0-11.0); Platelet Count 356 th/mm3 (150-450); Red Blood Count 4.41 mil/mm3 (4.50-5.90); Red Cell Distribution Width 18.6 % (11.6-17.2); White Blood Count 8.1 th/mm3 (4.0-11.0)
[2018-06-09 08:03] LABS: Calcium 8.3 mg/dL (8.5-10.1); Carbon Dioxide 25.4 meq/L (21.0-32.0); Potassium 3.8 meq/L (3.5-5.1)
[2018-06-09] MEDS: Glimepiride 4 MG Tablet PO SCH (08:13)
[2018-06-09] MEDS: Furosemide 20 MG Tablet PO SCH (08:15)
[2018-06-09] MEDS: amLODIPine 5 MG Tablet PO SCH (08:15)
[2018-06-09] MEDS: Insulin NovoLOG Aspart Correctional Sugar Inj SQ SCH (08:16)
[2018-06-09] MEDS: Senna/Docusate Sodium 8.6/50 MG Tablet PO SCH (08:16)
--- NOTE | 2018-06-09 08:20 | P.PNCA ---
Subjective Interval history: Occasional right, occasional left, sharp parasternal CP's, last few minute, no associated SOB. No dizziness, palpitations. Medications and Allergies Active Medications: Active Medications Acetaminophen (Tylenol) 650 mg PO Q4H PRN PRN Reason: Temp > 100.4 Al Hydroxide/Mg Hydroxide (Milk Of Magnesia Liq) 30 ml PO Q12H PRN PRN Reason: Mild Constipation Amlodipine Besylate (Norvasc) 10 mg PO DAILY [facility] Last Admin: 06/08/18 08:04 Dose: 10 mg Aspirin (Ecotrin) 325 mg PO DAILY [facility] Last Admin: 06/08/18 08:04 Dose: 325 mg Atorvastatin Calcium (Lipitor) 20 mg PO HS [facility] Last Admin: 06/08/18 22:07 Dose: 20 mg Bisacodyl (Dulcolax Supp) 10 mg RECTAL DAILY PRN PRN Reason: SEVERE CONSITIPATION Clopidogrel Bisulfate (Plavix) 75 mg PO DAILY [facility] Last Admin: 06/08/18 08:04 Dose: 75 mg Dextrose (D50w Vial) 50 ml IV.PUSH UNSCH PRN PRN Reason: PER HYPOGLYCEMIA PROTOCOL Furosemide (Lasix) 20 mg PO DAILY [facility] Last Admin: 06/08/18 08:04 Dose: 20 mg Glimepiride (Amaryl) 4 mg PO DAILY [facility] Last Admin: 06/08/18 08:04 Dose: 4 mg Glucagon (Glucagon Inj) 1 mg OTHER UNSCH PRN PRN Reason: for Hypoglycemia Protocol Heparin Sodium (Porcine) (Heparin Inj) 2,500 units IV.PUSH UNSCH PRN PRN Reason: aPTT 25-39 Heparin Sodium (Porcine) (Heparin Inj) 5,000 units IV.PUSH UNSCH PRN PRN Reason: aPTT < 25 Insulin Aspart (Novolog Insulin Correctional Sugar Inj) 0 unit SQ ACHS [facility]; Protocol Last Admin: 06/08/18 20:40 Dose: Not Given Isosorbide Mononitrate (Imdur) 120 mg PO DAILY@0700 [facility] Last Admin: 06/09/18 06:07 Dose: 120 mg Lactulose (Lactulose Liq) 30 ml PO DAILY PRN PRN Reason: SEVERE CONSITIPATION Metoprolol Succinate (Toprol Xl) 100 mg PO DAILY [facility] Ondansetron HCl (Zofran Inj) 4 mg IV.PUSH Q6H PRN PRN Reason: NAUSEA OR VOMITING Senna/Docusate Sodium (Shaina-Colace) 1 tab PO BID [facility] Last Admin: 06/08/18 22:07 Dose: Not Given Sennosides (Senokot) 17.2 mg PO Q12H PRN PRN Reason: Moderate Constipation Sodium Chloride (Ns Flush) 2 ml IV.FLUSH BID [facility] Last Admin: 06/08/18 22:07 Dose: 2 ml Sodium Chloride (Ns Flush) 2 ml IV.FLUSH UNSCH PRN PRN Reason: FLUSH AFTER USING IV ACCESS Tamsulosin HCl (Flomax) 0.4 mg PO DAILY [facility] Last Admin: 06/08/18 08:04 Dose: 0.4 mg Allergies Allergy/AdvReac Type Severity Reaction Status Date / Time No Known Allergies Allergy Verified 01/21/18 12:15 Home Medications Medication Instructions Recorded Confirmed Type clopidogrel 75 mg PO DAILY 06/06/18 06/06/18 History ergocalciferol (vitamin D2) 50,000 unit PO QWEEK 06/06/18 06/06/18 History [Vitamin D2] furosemide 20 mg PO DAILY 06/06/18 06/06/18 History glimepiride 4 mg PO QAM 06/06/18 06/06/18 History metoprolol succinate 25 mg PO DAILY 06/06/18 06/06/18 History tamsulosin 0.4 mg PO DAILY 06/06/18 06/06/18 History Physical Exam Vital signs: Vital Signs 06/08/18 12:00 06/08/18 16:00 06/08/18 20:00 Temperature 97.6 F 97.5 F L 97.3 F L Pulse Rate 66 63 76 Respiratory Rate 18 18 17 Blood Pressure 156/83 H 146/83 H 154/65 H Pulse Oximetry 97 98 95 06/09/18 00:35 06/09/18 03:15 06/09/18 04:54 Temperature 97.8 F 97.6 F Pulse Rate 65 59 L 66 Respiratory Rate 18 17 Blood Pressure 137/64 153/70 H Pulse Oximetry 97 97 Intake & Output 06/08/18 06/09/18 06/09/18 18:59 06:59 18:59 Intake Total 950 / 950 400 / 400 Output Total 1000 / 1000 800 / 800 Balance -50 / -50 -400 / -400 Weight 77.4 kg Intake: IV 250 / 250 Heparin/D5W 25,000 U/250 mL 25, 250 / 250 000 unit In 250 ml @ Per Protocol IV.CONT TITRATE PRN Rx #:[id number] Oral 700 / 700 400 / 400 Output: Urine 1000 / 1000 800 / 800 Other: # Bowel Movements 0 - Constitutional no acute distress - Routine Respiratory Exam Present: CTA bilaterally - Routine Cardiovascular Exam Present: RRR, S1, S2. Absent: murmur, gallop - Routine Abdominal Exam Present: soft, normoactive bowel sounds. Absent: tenderness, organomegaly - Routine Extremities Exam Absent: cyanosis, clubbing, edema Results 06/09/18 06:55 06/09/18 06:55 Coagulation 06/07/18 06/07/18 06/08/18 Range/Units 14:09 22:50 06:28 APTT 31.2 D 37.1 H 42.4 H (23.4-31.7) sec 06/08/18 Range/Units 12:21 APTT 40.8 H (23.4-31.7) sec Lipids 06/08/18 Range/Units 06:28 Triglycerides 128 (42-150) mg/dL Cholesterol 131 (120-200) mg/dL HDL Cholesterol 35.0 L (40.0-60.0) mg/dL Cholesterol/HDL Ratio 3.74 Ratio CBC 06/08/18 06/09/18 Range/Units 06:28 06:55 WBC 7.8 8.1 (4.0-11.0) th/mm3 RBC 4.42 L 4.41 L (4.50-5.90) mil/mm3 Hgb 11.0 L 11.1 L (13.0-17.0) gm/dL Hct 34.9 L 34.3 L (39.0-51.0) % Plt Count 324 356 (150-450) th/mm3 Comprehensive Metabolic Panel 06/09/18 Range/Units 06:55 Sodium 139 (136-145) meq/L Potassium 3.8 (3.5-5.1) meq/L Chloride 107 (98-107) meq/L Carbon Dioxide 25.4 (21.0-32.0) meq/L BUN 25 H (7-18) mg/dL Creatinine 2.82 H (0.60-1.30) mg/dL Calcium 8.3 L (8.5-10.1) mg/dL Intake and Output 06/08/18 06/09/18 06/09/18 22:59 06:59 14:59 Intake Total 700 / 700 400 / 400 Output Total 1000 / 1000 800 / 800 Balance -300 / -300 -400 / -400 Intake: Oral 700 / 700 400 / 400 Output: Urine 1000 / 1000 800 / 800 Other: # Bowel Movements 0 Weight 77.4 kg Assessment and Plan - Assessment (1) Coronary artery disease Code(s): I25.10 - Atherosclerotic heart disease of [place] coronary artery without angina pectoris Status: Chronic Plan: Still with occasional, mostly right sided CP's, overall atypical for myocardial ischemia. Patient not good candidate for coronary angiography with the increased risk of dye-induced renal failure. No ischemia on nuclear stress testing earlier this year. RECOMMEND Continued medical therapy. Discussed treatment approach with patient' s son, who agrees not to compromise renal function with a cath at this point. OK to discharge today same home medications except increased dosing of metoprolol succinate and isosorbide. (2) Near syncope Code(s): R55 - Syncope and collapse Status: Acute Plan: Stable overnight. No further dizziness or near syncope. Monitoring uneventful except one 4 beat run of wide complex tachycardia, the morphology of which is more consistent with aberrantly conducted atrial tach or SVT. Recommend set up 3 week monitor upon discharge. (3) Hypertension Code(s): I10 - Essential (primary) hypertension Status: Chronic Plan: Overall better BP's. Continue increased dosing of metoprolol. - Plan Code Status: full Discussed Condition With: patient and son Herman (1) Coronary artery disease Qualifiers: Coronary Disease-Associated Artery/Lesion type: [place] artery [place] vs. transplanted heart: [place] heart Associated angina: angina presence unspecified Qualified Code(s): I25.10 - Atherosclerotic heart disease of [place] coronary artery without angina pectoris (3) Hypertension Qualifiers: Hypertension type: essential hypertension Qualified Code(s): I10 - Essential (primary) hypertension
[2018-06-09 09:17] VITALS: BP 153/74; RESP 18; TEMP 97.4; O2SAT 96
[2018-06-09 09:51] VITALS: PULSE 62
--- NOTE | 2018-06-09 10:06 | P.DS ---
DS: Providers Date of admission: 06/07/18 01:21 Primary care physician: UNKNOWN Consults: 06/06/18 20:39 HUB Only Consult Order Routine Consulting Provider: Mignon Crow 06/07/18 00:59 Consult to Cardiology Routine Consulting Provider: John Young Does the patient have a Pull Socket Assembler who follows them?: No Preferred Commercial Fisher:: Special Education Para Professional Physician Reason for Consultation: NSTEMI Notified:: Service Spoke with:: anne Date Notified:: 06/07/18 Time Notified:: 01:33 Ordering Provider: SANTHOSH 06/08/18 11:21 Consult to Nephrology Routine Consulting Provider: Ermias Yanes Does the patient have a Trailer Chief who follows them?: Yes Preferred Nephrology Christian Education Director:: Ermias Yanes Reason for Consultation: CKD stage IV, considering Cardiac cath Notified:: Service Spoke with:: DARRIUS Date Notified:: 06/08/18 Time Notified:: 11:24 Ordering Provider: QUINTEN Brief History from admission: Mr. Garcia is a pleasant 67 year-old male with a history of coronary artery disease status post cardiac stenting approximately 1.5 years ago, diabetes mellitus, hyperlipidemia, chronic kidney disease stage IV, and hypertension who presented to the emergency room complaining of chest pain. The patient had similar symptoms in December 2017 and troponin I was 0.28 - 0.32 during that admission. His troponin during his emergency evaluation was 0.6 so and he was therefore admitted for observation. Patient was seen in his hospital room. He reports chest pain with palpitations over the past couple of weeks that have progressively worsened. He is unable to recall the name of any retail management trainee that he follows as an outpatient but states that he sees Dr. Kim Sampson as his primary. He reports chest discomfort occurs on the left side of his chest without radiation, diaphoresis, shortness of breath, or nausea. The patient reports that he recently relocated here from [place], [place]. He tells me he had a retail management trainee in [place] but has not followed up as an outpatient from his prior hospitalization with Dr. Young, the retail management trainee he saw while he was here. He denies any family history of cardiac disease. DS: Diagnosis Discharge Diagnosis (1) Coronary artery disease: Status: Chronic Diagnosis: Principal (2) CKD (chronic kidney disease), stage IV: Status: Chronic Diagnosis: Secondary (3) Hypertension: Status: Chronic Diagnosis: Secondary (4) Hyperlipidemia: Status: Chronic Diagnosis: Secondary DS: Summary 67-year-old white male with a history of coronary disease status post cardiac stenting approximately 1.5 years ago, diabetes mellitus, hyperlipidemia, chronic kidney disease stage IV, hypertension presented and admitted for chest pain with elevated troponin I . It was felt the elevated troponin I may be due to his chronic kidney disease stage IV as he had a negative nuclear medicine stress test in January. However IV heparin was initiated during the hospitalization. Patient continues to have intermittent chest pain. Risk and benefits of cardiac catheterization discussed with the patient and at this time due to his chronic kidney disease stage IV, it was recommended not to pursue the cardiac catheterization and continue with medical management. His M door and beta-ignacio was increased. He was counseled to continue aggressive treatment of his risk factors of hypertension, hyperlipidemia, diabetes mellitus type 2. He was seen by his retail management trainee Dr. Young who will follow up with him as an outpatient. Time Spent with Patient Total time spent providing and/or coordinating discharge services: Less than 30 minutes Quality: VTE Deep Vein Thrombosis/Pulmonary Embolism Present on Admission: No Exam Narrative Exam Narrative: GENERAL: Well-nourished well-developed male in no acute distress CARDIOVASCULAR: Regular rate and rhythm. RESPIRATORY: No accessory muscle use. Clear to auscultation. Breath sounds equal bilaterally. GASTROINTESTINAL: Abdomen soft, non-tender, nondistended. Normoactive bowel sounds MUSCULOSKELETAL: Extremities without clubbing, cyanosis, or edema. No obvious deformities. NEUROLOGICAL: Awake and alert. Moves all 4 extremities HENMT Head: normocephalic and atraumatic Nose: no nasal discharge and no epistaxis Mouth: moist mucous membranes Eyes Sclera: normal sclerae Pupils: PERRL Neck Neck: trachea midline and no JVD Resp Effort & Inspection: no use of accessory muscles Auscultation: clear to auscultation bilaterally Cardio Rate: regular rate Rhythm: regular rhythm Heart Sounds: no murmurs GI Inspection: non-distended Palpation: soft, no hepatosplenomegaly and nontender Skin General: dry skin (warm) Neuro General: alert and awake Cranial Nerves: other Speech: speech normal Motor: no movement abnormalities noted Extrem General: normal to inspection, no clubbing, no cyanosis and no edema Psych Mood: congruent mood Affect: normal affect Judgment: judgment good Results Labs on day of discharge: Labs from last 24 hours 06/09/18 06/09/18 06/09/18 08:00 06:55 06:55 WBC 8.1 RBC 4.41 L Hgb 11.1 L Hct 34.3 L MCV 77.7 L MCH 25.1 L MCHC 32.4 RDW 18.6 H Plt Count 356 MPV 7.8 APTT Sodium 139 Potassium 3.8 Chloride 107 Carbon Dioxide 25.4 Anion Gap 7 BUN 25 H Creatinine 2.82 H Estimated GFR 23 L POC Glucose 78 Random Glucose 64 L Calcium 8.3 L 06/08/18 06/08/18 06/08/18 21:41 18:18 17:04 WBC RBC Hgb Hct MCV MCH MCHC RDW Plt Count MPV APTT Sodium Potassium Chloride Carbon Dioxide Anion Gap BUN Creatinine Estimated GFR POC Glucose 117 H 120 H 63 L Random Glucose Calcium 06/08/18 06/08/18 12:21 12:09 WBC RBC Hgb Hct MCV MCH MCHC RDW Plt Count MPV APTT 40.8 H Sodium Potassium Chloride Carbon Dioxide Anion Gap BUN Creatinine Estimated GFR POC Glucose 126 H Random Glucose Calcium Impressions ITS Impressions Chest X-Ray 06/06/18 17:23 CONCLUSION: Mild congestive heart failure pattern with probable basilar atelectasis. Discharge Plan Discharge Disposition Patient Disposition: Discharge Home Discharge Condition Condition: Stable Discharge Order Discharge Orders: Discharge Order (Routine); Ordered 06/09/18 Ordered By: Roxy Estrada Cardiology Clear for Discharge (Routine); Ordered 06/09/18 Ordered By: John Young Discharge Details Anticipated Discharge Date: 06/09/18 Physicians Team Primary Care Provider: UNKNOWN, Attending Provider: Roxy Estrada Other Providers: Mignon,Mignon ; John Young ; Ermias Yanes Rxs /Orders / Referrals /Forms Prescriptions: New atorvastatin 20 mg Tablet 20 mg PO HS Qty: 30 RF: 0 metoprolol succinate 50 mg Tablet Extended Release 24 Hr 50 mg PO DAILY Qty: 30 RF: 0 Continue clopidogrel 75 mg Tablet 75 mg PO DAILY RF: 0 tamsulosin 0.4 mg Capsule 0.4 mg PO DAILY RF: 0 glimepiride 4 mg Tablet 4 mg PO QAM RF: 0 furosemide 20 mg Tablet 20 mg PO DAILY RF: 0 ergocalciferol (vitamin D2) [Vitamin D2] 50,000 unit Capsule 50,000 unit PO QWEEK RF: 0 isosorbide mononitrate 60 mg Tablet Extended Release 24 Hr 60 mg PO DAILY@0700 Qty: 30 RF: 0 aspirin 325 mg Tablet,Delayed Release (Dr/Ec) 325 mg PO DAILY Qty: 30 RF: 0 Discontinued metoprolol succinate 25 mg Tablet Extended Release 24 Hr 25 mg PO DAILY RF: 0 Referrals: UNKNOWN, [Primary Care Provider] - See Instructions Discharge Instructions Patient Printed Instructions: Metoprolol (By mouth), Atorvastatin (By mouth), Coronary Artery Disease (DC), Chest Pain (ED) Post Discharge Care Plan Care Plan Goals: Your Health Problems: Coronary artery disease Goals to Promote Your Health: * To prevent worsening of your condition * To maintain your health at the optimal level Directions to Meet Your Goals: * Take your medications as prescribed * Follow your dietary instruction * Follow activity as directed * Keep your appointments as scheduled * Take your immunizations and boosters as scheduled * If your symptoms worsen call your PCP * If no PCP go to Urgent Care or Emergency Room Smoking is dangerous to your health. Avoid second hand smoke. You may reach the 24-hour crisis hotline for domestic abuse at . Status ED Status: Left Department
== END 2018-06-09 10:13 | disposition home or self-care (01) ==
LOC: NEDA 16:37 → NEPC 16:37 → NEDH 06-07 05:02 → N04 06-07 11:17
PROVIDERS: ADMIT Family Medicine; ATTEND Family Medicine
DX: I12.9 Hypertensive chronic kidney disease with stage 1 through stage 4 chronic kidney disease, or unspecified chronic kidney disease; Z95.5 Presence of coronary angioplasty implant and graft; E11.22 Type 2 diabetes mellitus with diabetic chronic kidney disease; Z79.82 Long term (current) use of aspirin; E11.65 Type 2 diabetes mellitus with hyperglycemia; R55 Syncope and collapse; R07.89 Other chest pain; N18.4 Chronic kidney disease, stage 4 (severe); I25.2 Old myocardial infarction; E78.5 Hyperlipidemia, unspecified; I25.10 Atherosclerotic heart disease of native coronary artery without angina pectoris; Z79.84 Long term (current) use of oral hypoglycemic drugs; E11.21 Type 2 diabetes mellitus with diabetic nephropathy; Z90.5 Acquired absence of kidney